=== PATIENT | female | born 1955 | race Caucasian/White ===

== ENCOUNTER 2020-08-24 12:42 | Outpatient (CLI) | payer OTHER, SELFPAY ==
--- NOTE | ~2020-08-24 | CT_ITS ---
EXAMINATION: CT lung screening DATE: 08/24/2020 13:26 INDICATION: Personal history of nicotine dependency TECHNIQUE: Computed tomography (CT) of the chest was performed without intravenous contrast. The dose -length product was 460.25 mGy-cm. Automated exposure control and iterative reconstruction technique were employed. COMPARISON: CT dated 01/20/2019 FINDINGS: Heart size normal. No significant pleural or pericardial effusion. No significant vascular abnormality. No thoracic lymphadenopathy. There are calcified mediastinal lymph nodes and pulmonary n odules, consistent with chronic granulomatous disease. No endobronchial lesions. No noncalcified pulm onary nodules/masses identified. No pneumothorax. No endobronchial lesions. No mild thoracic spondylo sis. IMPRESSION: 1. Lung-RADS category 1: Negative. Continue annual screening with noncontrast low-dose chest CT in 12 months. Reviewed, dictated and finalized at location B. IMPRESSION: 1. Lung-RADS category 1: Negative. Continue annual screening with noncontrast l ow-dose chest CT in 12 months.
== END 2020-08-24 12:43 | disposition home or self-care (01) ==
PROVIDERS: PCP Emergency Medicine; Visit Provider Emergency Medicine
DX: Z12.2 Encounter for screening for malignant neoplasm of respiratory organs (principal); Z87.891 Personal history of nicotine dependence
CPT/HCPCS: G0297

== ENCOUNTER 2020-10-08 08:43 | Outpatient (CLI) | payer OTHER, SELFPAY ==
--- NOTE | ~2020-10-08 | US_ITS ---
EXAMINATION: US abdomen complete EXAM DATE: 10/08/2020 09:31 INDICATION: Elevated liver enzymes. TECHNIQUE: Multiple grayscale and Doppler images of the complete abdomen were obtained (by a technolo gist who performed the scan) and subsequently reviewed. Comparison is made to prior examination from 03/23/2005. FINDINGS: The abdominal aorta is normal in caliber. Visualized portion IVC is patent. The pancreatic head a nd body are normal in appearance. The pancreatic tail is not visualized. There is echogenic liver parenchyma, hepatic steatosis. There are no focal liver lesions identified. There is no evidence of intrahepatic biliary duct dilation. Portal venous flow was seen in the he patopedal, normal direction and has normal Doppler waveform. Common bile duct measures 4 mm, which is normal. The gallbladder fossa is unremarkable. Right kidney: There is normal contour and echogenicity. It measures 11.4 x 5.7 x 4.7 centimeters. There are no focal renal lesions identified. There is no hydronephrosis. Left kidney: There is normal contour and echogenicity. It measures 12.6 x 6.7 x 5.8 centimeters. T here are no focal renal lesions identified. There is no hydronephrosis. The spleen measures 7.6 centimeters and is morphologically normal. IMPRESSION: Hepatic steatosis. Reviewed, dictated and finalized at location A. NSKEEPER HEAD IMPRESSION: Hepatic steatosis.
== END 2020-10-08 08:44 | disposition home or self-care (01) ==
PROVIDERS: PCP Emergency Medicine; Visit Provider Emergency Medicine
DX: K76.9 Liver disease, unspecified (principal)
CPT/HCPCS: 76700

== ENCOUNTER 2020-11-05 11:03 | Emergency (ER) | payer OTHER, SELFPAY ==
[2020-11-05 11:19] VITALS: BP 141/88; PULSE 80; RESP 20; TEMP 36.3; O2SAT 99
--- NOTE | 2020-11-05 11:40 | ED.EYEPROB ---
HPI - Eye Problem General Chief complaint: Eye Problems Stated complaint: redness right eye Source: patient and RN notes reviewed Mode of arrival: ambulatory History of Present Illness HPI Narrative: This is a 64-year-old white female presented to urgent care with right eye pain and redness. According to patient yesterday she developed pressure and redness to her right eye approximately 1 year ago this time patient also developed conjunctivitis. Patient denies any visual disturbance, trauma to the eye no noticeable foreign objects noted no crusting of eyelid, no discharge from eye, no fevers or headaches. MD chief complaint: eye pain and eye redness Related Data Home Medications Medication Instructions Recorded Confirmed furosemide 40 mg PO DAILY 09/18/19 11/19/19 gabapentin 300 mg PO DAILY 09/18/19 11/19/19 losartan 50 mg PO DAILY 09/18/19 11/19/19 metformin 500 mg PO DAILY 09/18/19 11/19/19 omeprazole 40 mg PO DAILY 09/18/19 11/19/19 simvastatin 20 mg PO DAILY 09/18/19 11/19/19 polymyxin B sulf-trimethoprim 11/19/19 Allergies Allergy/AdvReac Type Severity Reaction Status Date / Time adhesive Allergy Unknown Unknown Verified 01/19/19 17:08 lisinopril Allergy Cough Verified 09/18/19 16:37 Bumble Bee Allergy Unknown Unknown Uncoded 01/19/19 17:08 Review of Systems Review of Systems: All systems reviewed & are unremarkable except as noted in HPI and below PMFSH Past Medical History Medical History Acid reflux Diabetes Hyperlipemia, mixed Hypertension Family History Family History Sibling Family history of gastrointestinal disorder Father Family history of liver disease, Onset Age: 75 Social History Social History Alcohol intake: never Exam Narrative: Exam Narrative: GENERAL: This is a well-nourished, well-developed patient, in no apparent distress. HEAD: normocephalic, atraumatic. EYES: Erythema and edema to the right sclera EARS: External ears normal, auditory canals clear and without drainage, TMs normal without perforation. Hearing grossly intact. NOSE: External nose normal with no obvious nasal discharge, nares without redness, no rhinorrhea. THROAT: Mucous membranes moist, posterior pharynx clear. NECK: Neck supple, non-tender without lymphadenopathy, masses or thyromegaly. CARDIOVASCULAR: Regular rate and rhythm without murmurs, gallops, or rubs. RESPIRATORY: Clear to auscultation. Breath sounds equal bilaterally. No wheezes, rales, or rhonchi. GASTROINTESTINAL: Abdomen soft, non-tender, nondistended. Bowel sounds are active. No hepato-splenomegaly, or palpable masses. No guarding. SKIN: warm, intact with no suspicious lesions or rash, good texture and turgor. NEURO: awake, alert, and oriented to person, place and time. There were no obvious focal neurologic abnormalities. Steady gait EXTREMITIES: Normal range of motion. No edema. No calf tenderness. Negative Homans sign bilaterally. BACK: Nontender without deformity or crepitance. No flank tenderness. Course Course Emergency Course: Patient will discharge with erythromycin opth ointment Vital Signs Vital signs: Vital Signs Temperature 97.4 F L 11/05/20 11:19 Pulse Rate 80 11/05/20 11:19 Respiratory Rate 20 11/05/20 11:19 Blood Pressure 141/88 H 11/05/20 11:19 Pulse Oximetry 99 11/05/20 11:19 Temperature 97.4 F L 11/05/20 11:19 Pulse Rate 80 11/05/20 11:19 Respiratory Rate 20 11/05/20 11:19 Blood Pressure 141/88 H 11/05/20 11:19 Pulse Oximetry 99 11/05/20 11:19 Discharge Plan Discharge Clinical Impression: Acute conjunctivitis of right eye Qualifiers: Acute conjunctivitis type: unspecified Qualified Code(s): H10.31 - Unspecified acute conjunctivitis, right eye Patient Disposition: Home, Self-Care Condition: Stabl
== END 2020-11-05 11:44 | disposition home or self-care (01) ==
PROVIDERS: Emergency Provider Nurse Practitioner; PCP Emergency Medicine
DX: H10.31 Unspecified acute conjunctivitis, right eye (principal); K21.9 Gastro-esophageal reflux disease without esophagitis; E11.9 Type 2 diabetes mellitus without complications; E78.2 Mixed hyperlipidemia; I10 Essential (primary) hypertension
CPT/HCPCS: 99213; G0463

== ENCOUNTER 2020-12-31 09:08 | Outpatient (CLI) | payer OTHER, SELFPAY ==
--- NOTE | 2020-12-31 12:00 | NEURO_ITS ---
Impression: # Complains of pain in lower extremities, noted to have erythema/edema. # Normal nerve conduction study including F-waves. # Normal needle/EMG exam. # Clinical correlation recommended Nerve Conduction Studies Anti Sensory Summary Table Stim Site NR Peak (ms) P-T Amp (?V) Site1 Site2 Delta-P (ms) Dist (cm) [place] (m/s) Left Sup Fibular Anti Sensory (Ant Lat Mall) 14 cm 3.8 10.1 14 cm Ant Lat Mall 3.8 16.0 42 Right Sup Fibular Anti Sensory (Ant Lat Mall) 14 cm 4.3 5.3 14 cm Ant Lat Mall 4.3 16.0 37 Left Sural Anti Sensory (Lat Mall) Calf 3.7 9.5 Calf Lat Mall 3.7 16.0 43 Right Sural Anti Sensory (Lat Mall) Calf 3.7 25.3 Calf Lat Mall 3.7 16.0 43 Motor Summary Table Stim Site NR Onset (ms) O-P Amp (mV) Site1 Site2 Delta-0 (ms) Dist (cm) [place] (m/s) Left Lateral Plantar Motor (ADM) Med Mall 4.9 1.3 Right Lateral Plantar Motor (ADM) Med Mall 4.8 0.6 Left Peroneal Motor (Vastus Med) Ankle 4.8 1.7 Popit Ankle 7.1 36.0 51 Popit 11.9 1.7 Right Peroneal Motor (Vastus Med) Ankle 4.8 1.2 Popit Ankle 7.5 36.0 48 Popit 12.3 0.9 Left Tibial Motor (Abd Acevedo Brev) Ankle 4.9 3.6 Knee Ankle 8.0 41.0 51 Knee 12.9 2.3 Right Tibial Motor (Abd Acevedo Brev) Ankle 4.7 2.0 Knee Ankle 9.9 40.0 40 Knee 14.6 1.5 F Wave Studies NR F-Lat (ms) L-R F-Lat (ms) Left Peroneal (Mrkrs) (EDB) 49.01 1.05 Right Peroneal (Mrkrs) (EDB) 50.06 1.05 Left Tibial (Mrkrs) (Abd Hallucis) 52.93 0.14 Right Tibial (Mrkrs) (Abd Hallucis) 52.78 0.14 EMG Side Muscle Nerve Root Ins Act Fibs Amp Dur Recrt Comment Right AntTibialis Dp Br Fibular L4-5 Nml Nml Nml Nml Nml Right Gastroc Tibial S1-2 Nml Nml Nml Nml Nml Right Fibularis Long Sup Br Fibular L5-S1 Nml Nml Nml Nml Nml Right Flex Dig Long Tibial L5-S2 Nml Nml Nml Nml Nml Right Ext Dig Brev Dp Br Fibular L5, S1 Nml Nml Nml Nml Nml Left AntTibialis Dp Br Fibular L4-5 Nml Nml Nml Nml Nml Left Gastroc Tibial S1-2 Nml Nml Nml Nml Nml Left Fibularis Long Sup Br Fibular L5-S1 Nml Nml Nml Nml Nml Left Flex Dig Long Tibial L5-S2 Nml Nml Nml Nml Nml Left Ext Dig Brev Dp Br Fibular L5, S1 Nml Nml Nml Nml Nml MTDD
== END 2020-12-31 09:09 | disposition home or self-care (01) ==
PROVIDERS: PCP Emergency Medicine; Visit Provider Psychiatry & Neurology Neurology
DX: R20.2 Paresthesia of skin (principal)
CPT/HCPCS: 95886; 95910

== ENCOUNTER 2021-01-20 10:32 | Outpatient (CLI) | payer OTHER, SELFPAY ==
--- NOTE | ~2021-01-20 | MM_ITS ---
EXAMINATION: MM screening keren BI w andrew HISTORY: Screening TECHNIQUE: Craniocaudal and mediolateral oblique 3-D tomosynthesis images were obtained and synthetic 2-D images were generated. CAD analysis was submitted and interpreted. COMPARISON: No prior mammogram is available for comparison at this institution. BREAST PARENCHYMAL COMPOSITION: There are scattered areas of fibroglandular density. FINDINGS: There is no evidence of suspicious mass, calcification, or architectural distortion to sugg est malignancy in either breast. There has been no suspicious interval change. IMPRESSION: 1. No mammographic evidence of malignancy. 2. Recommend routine screening mammography in one year. BI-RADS Category 1: Negative Reviewed, dictated and finalized at location A.
== END 2021-01-20 10:33 | disposition home or self-care (01) ==
LOC: ANHIMG 10:35
PROVIDERS: PCP Emergency Medicine; Visit Provider Emergency Medicine
DX: Z12.31 Encounter for screening mammogram for malignant neoplasm of breast (principal)
CPT/HCPCS: 77063; 77067

== ENCOUNTER 2021-02-15 09:40 | Outpatient (CLI) | payer OTHER, SELFPAY | END 2021-02-15 09:41 | disposition home or self-care (01) | LOC: ANHCOVIDVC 09:40 | PROVIDERS: PCP Emergency Medicine | DX: Z23 Encounter for immunization (principal) | CPT/HCPCS: 0001A; 91300 ==

== ENCOUNTER 2021-03-08 09:42 | Outpatient (CLI) | payer OTHER, SELFPAY | END 2021-03-08 09:43 | disposition home or self-care (01) | LOC: ANHCOVIDVC 09:42 | PROVIDERS: PCP Emergency Medicine | DX: Z23 Encounter for immunization (principal) | CPT/HCPCS: 0002A; 91300 ==

== ENCOUNTER 2021-06-16 17:03 | Emergency (ER) | payer OTHER, SELFPAY ==
[2021-06-16 17:12] VITALS: BP 121/81; PULSE 81; RESP 16; TEMP 36.9; O2SAT 97
[2021-06-16 17:16] VITALS: BP 121/81; PULSE 81; RESP 16; TEMP 36.9; O2SAT 97
--- NOTE | 2021-06-16 17:23 | ED.URI ---
HPI - URI/Sore Throat General Chief Complaint: Upper Respiratory Infection Stated Complaint: cough Time Seen by Provider: 06/16/21 17:31 Source: patient and RN notes reviewed Mode of arrival: ambulatory Limitations: no limitations History of Present Illness HPI Narrative: 65-year-old female presents with concern for cough, wheezing for 2 days. Reports a history of bronchitis. Reports a history of seasonal allergies. She denies fever, body aches, chills, sweats. She reports she has been vaccinated for Covid, she denies any known exposure. MD elicited complaint: cough Related Data Home Medications Medication Instructions Recorded Confirmed losartan 50 mg PO DAILY 09/18/19 06/16/21 metformin 500 mg PO DAILY 09/18/19 06/16/21 omeprazole 40 mg PO DAILY 09/18/19 06/16/21 simvastatin 20 mg PO DAILY 09/18/19 06/16/21 Allergies Allergy/AdvReac Type Severity Reaction Status Date / Time adhesive Allergy Unknown Unknown Verified 06/16/21 17:12 lisinopril Allergy Cough Verified 06/16/21 17:12 Bumble Bee Allergy Unknown Unknown Uncoded 06/16/21 17:12 Review of Systems Review of Systems: CONSTITUTIONAL: Denies malaise, chills, sweats, or fever. EYES: Denies visual changes, redness, or discharge. ENT: Reports rhinorrhea. Denies congestion, sinus pain, otalgia and sore throat. CARDIOVASCULAR: Denies chest pain, palpitations, or edema. RESPIRATORY: Reports cough. Denies dyspnea. GASTROINTESTINAL: Denies abdominal pain, nausea, vomiting, diarrhea SKIN: Denies rash or itching. MUSCULOSKELETAL: Denies myalgia. NEUROLOGIC: Denies headache. All systems reviewed & are unremarkable except as noted in HPI and below [facility] Past Medical History Medical History Acid reflux Diabetes Hyperlipemia, mixed Hypertension Family History Family History Sibling Family history of gastrointestinal disorder Father Family history of liver disease, Onset Age: 75 Social History Social History Alcohol intake: never Gender identity (if verbalized by the patient): Female Comments At time of signature, agree with nursing past medical, surgical, social and family history. There is no relevant family history pertinent to the presenting complaint Exam Narrative: GENERAL: Well-appearing, well-nourished, and in no acute distress. HEAD: Normocephalic EYES: PERRLA, conjunctivae clear ENT: Nares clear, clear discharge. Mucous membranes moist. TM pearly lazar with sharp light reflex bilaterally; no tragal tenderness. Oropharynx not erythematous without lesions. Tonsils not enlarged and without exudate, no drooling, no hoarseness, no trismus, uvula midline. NECK: Supple. No lymphadenopathy CHEST: Left upper and lower lobe scattered rhonchi, breath sounds equal. No wheezing, rales, or stridor. No respiratory distress, speaks in full sentences. HEART: Regular rate and rhythm. No murmur heard. SKIN: Warm, dry, no rash. NEURO: Alert and oriented x3. PSYCH: Normal mood and affect Course Course Emergency Course: Patient is aware of diagnosis, understands and agrees to treatment plan. Anticipatory guidance given. Patient agrees to follow-up as directed and is aware of reasons to seek care at the emergency department. Portions of this record may have been created with voice recognition software Vital Signs Vital signs: Vital Signs Temperature 98.5 F 06/16/21 17:12 Pulse Rate 81 06/16/21 17:12 Respiratory Rate 16 06/16/21 17:12 Blood Pressure 121/81 06/16/21 17:12 Pulse Oximetry 97 06/16/21 17:12 Temperature 98.5 F 06/16/21 17:16 Pulse Rate 81 06/16/21 17:16 Respiratory Rate 16 06/16/21 17:16 Blood Pressure 121/81 06/16/21 17:16 Pulse Oximetry 97 06/16/21 17:16 Reviewed. MDM - URI/Sore Throat MDM Narrative Medical decision making
== END 2021-06-16 17:34 | disposition home or self-care (01) ==
PROVIDERS: Emergency Provider Nurse Practitioner; PCP Emergency Medicine
DX: J06.9 Acute upper respiratory infection, unspecified (principal); K21.9 Gastro-esophageal reflux disease without esophagitis; E11.9 Type 2 diabetes mellitus without complications; E78.2 Mixed hyperlipidemia; I10 Essential (primary) hypertension
CPT/HCPCS: 99213; G0463

== ENCOUNTER 2021-06-29 08:32 | Outpatient (CLI) | payer OTHER, SELFPAY ==
--- NOTE | ~2021-06-29 | US_ITS ---
EXAMINATION: US abdomen limited EXAM DATE: 06/29/2021 11:57 INDICATION: R10.11 - Right upper quadrant pain . TECHNIQUE: Multiple grayscale and Doppler images of the abdomen right upper quadrant were obtained (b y a technologist who performed the scan) and subsequently reviewed. Comparison is made to prior exami nation from 10/08/2020. FINDINGS: The pancreatic head and body are normal in appearance. The pancreatic tail is not visualized. There is echogenic liver parenchyma, hepatic steatosis. There are no focal liver lesions identified. Th ere is no evidence of intrahepatic biliary duct dilation. Portal venous flow was seen in the hepatop edal, normal direction and has normal Doppler waveform. No right-sided hydronephrosis. Common bile duct measures 4 mm, which is normal. The gallbladder fossa is unremarkable. IMPRESSION: 1. Hepatic steatosis. Reviewed, dictated and finalized at location A. IMPRESSION: 1. Hepatic steatosis.
--- NOTE | 2021-06-29 09:25 | EST_ITS ---
Patient Info Name: Danika Pérez Age: 65 years : 1955 Gender: Female Ht: 64 in Wt: 272 lbs BSA: 2.43 m2 Exam Date: 06/29/2021 10:16 AM Exam Location: [facility] Stress Patient Status: Outpatient Admit Date: 06/29/2021 Staff Ordering Physician: Sangita Carcamo Attending Provider: Sangita Carcamo Exercise Technologist: Nancy Warren RDCS Exercise Physician: Sukumar Otero DO Exam Type: CA stress test treadmill Study Info Indications R06.00 - Dyspnea, unspecified A treadmill exercise stress test was performed. Summary 1. 1. Negative Brandon exercise stress test for ischemic ST changes by ECG criteria. 2. 2. Poor functional capacity, achieving 4.7 METs of workload. 3. 3. Appropriate HR response to exercise. 4. 4. Appropriate HR recovery at 1 minute post exercise. 5. 5. No imaging with stress testing. 6. 6. Patient informed of the above results. Protocol: Brandon Stress ECG Details Stage: REST Duration (min): 2 min : 14 sec Speed (mph): 0.0 Grade (%): 0 HR (bpm): 77 SBP (mmHg): 131 DBP (mmHg): 73 METS: --- Stage: REST Duration (min): 13 min : 9 sec Speed (mph): 0.0 Grade (%): 0 HR (bpm): 82 SBP (mmHg): 131 DBP (mmHg): 73 METS: --- Stage: STAGE 1 Duration (min): 1 min : 0 sec Speed (mph): 1.7 Grade (%): 10 HR (bpm): 104 SBP (mmHg): 131 DBP (mmHg): 73 METS: --- Stage: STAGE 1 Duration (min): 2 min : 0 sec Speed (mph): 1.7 Grade (%): 10 HR (bpm): 124 SBP (mmHg): 131 DBP (mmHg): 73 METS: --- Stage: STAGE 1 Duration (min): 3 min : 0 sec Speed (mph): 1.7 Grade (%): 10 HR (bpm): 134 SBP (mmHg): 181 DBP (mmHg): 70 METS: --- Stage: STAGE 2 Duration (min): 0 min : 5 sec Speed (mph): 2.5 Grade (%): 12 HR (bpm): 135 SBP (mmHg): 181 DBP (mmHg): 70 METS: --- Stage: RECOVERY Duration (min): 0 min : 54 sec Speed (mph): 0.0 Grade (%): 0 HR (bpm): 127 SBP (mmHg): 181 DBP (mmHg): 70 METS: --- Stage: RECOVERY Duration (min): 1 min : 54 sec Speed (mph): 0.0 Grade (%): 0 HR (bpm): 100 SBP (mmHg): 192 DBP (mmHg): 73 METS: --- Stage: RECOVERY Duration (min): 2 min : 54 sec Speed (mph): 0.0 Grade (%): 0 HR (bpm): 95 SBP (mmHg): 169 DBP (mmHg): 66 METS: --- Stage: RECOVERY Duration (min): 3 min : 54 sec Speed (mph): 0.0 Grade (%): 0 HR (bpm): 90 SBP (mmHg): 169 DBP (mmHg): 66 METS: --- Stage: RECOVERY Duration (min): 4 min : 54 sec Speed (mph): 0.0 Grade (%): 0 HR (bpm): 88 SBP (mmHg): 162 DBP (mmHg): 68 METS: --- Stage: RECOVERY Duration (min): 5 min : 54 sec Speed (mph): 0.0 Grade (%): 0 HR (bpm): 85 SBP (mmHg): 162 DBP (mmHg): 68 METS: --- Stage: RECOVERY Duration (min): 6 min : 54 sec Spe
== END 2021-06-29 08:33 | disposition home or self-care (01) ==
PROVIDERS: PCP Internal Medicine; Visit Provider Nurse Practitioner
DX: R06.00 Dyspnea, unspecified (principal); R10.11 Right upper quadrant pain; K76.0 Fatty (change of) liver, not elsewhere classified
CPT/HCPCS: 76705; 93017

== ENCOUNTER 2021-07-14 00:20 | Day surgery (SDC) | payer OTHER, SELFPAY ==
[2021-07-06 10:59] VITALS: BMI 46.9
[2021-07-14 11:09] VITALS: BP 130/83; PULSE 87; RESP 20; TEMP 36.7; O2SAT 100
[2021-07-14] MEDS: LACTATED RINGERS 1,000 ML 150 ML IV CONT (11:17)
[2021-07-14 11:19] LABS: Glucose Point of Care 82 mg/dl (65-105)
--- NOTE | 2021-07-14 11:24 | WPDANESEPPF ---
Anes - Initial Pre Proc Eval Procedure: Operation Date: 07/14/21 12:00 Proposed Procedures p Esophagogastroduodenoscopy - Terry Zimmerman MD Date/Time: 07/14/21 11:24 Surgeon: Terry Zimmerman MD Pre Op Diagnosis: GERD K21.9 Patient Data Age: 65 Gender: F Height: 1.63 m Weight: 123 kg Last Vital Signs Temp 36.7 C 07/14/21 11:09 Pulse 87 07/14/21 11:09 Resp 20 07/14/21 11:09 BP 130/83 07/14/21 11:09 Pulse Ox 100 07/14/21 11:09 Allergies Allergy/AdvReac Type Severity Reaction Status Date / Time adhesive Allergy Unknown Unknown Verified 07/14/21 11:07 lisinopril Allergy Cough Verified 07/14/21 11:07 Bumble Bee Allergy Unknown Unknown Uncoded 07/06/21 10:55 Home Medications Medication Instructions Recorded Confirmed Type losartan 50 mg PO DAILY 09/18/19 07/06/21 History metformin 500 mg PO DAILY 09/18/19 07/06/21 History omeprazole 40 mg PO DAILY 09/18/19 07/06/21 History simvastatin 20 mg PO DAILY 09/18/19 07/06/21 History aspirin 325 mg tablet 325 mg PO DAILY 06/22/21 07/06/21 History furosemide 20 mg tablet 20 mg PO QAM 06/22/21 07/06/21 History ascorbic acid (vitamin C) 500 mg PO DAILY 07/06/21 07/06/21 History biotin 10 mg PO DAILY 07/06/21 07/06/21 History garlic 100 mg PO DAILY 07/06/21 07/06/21 History skrjj-1h-zau-epa-fish oil [[place] 3] 1 cap PO DAILY 07/06/21 07/06/21 History potassium chloride 10 meq PO DAILY 07/06/21 07/06/21 History vitamin B complex 1 tablet PO DAILY 07/06/21 07/06/21 History Laboratory Tests 07/14/21 11:14 POC Capillary Glucose 82 mg/dl mg/dl (65-105) Patient hx anesthesia problems: none Family hx anesthesia problems: none PMFSH Past Medical History Medical History (Updated 06/29/21 @ 11:26 by Sangita Carcamo, COMPUTER HELP DESK REPRESENTATIVE-C) Acid reflux Adverse effect of pkgztgjtncg-tzzidmygsx-szcano inhibitors, initial encounter Anxiety Diabetes Hyperlipemia, mixed Hypertension PE (pulmonary thromboembolism) Thrombophlebitis of superficial veins of left lower extremity Surgical History Surgical History (Updated 06/22/21 @ 10:26 by BERLIN Oneill) H/O vein stripping 1969'; 2017 History of rectal surgery 2010 Hx of cholecystectomy 2009 Family History Family History Sibling Family history of gastrointestinal disorder Father Family history of liver disease, Onset Age: 75 Social History Social History (Updated 06/22/21 @ 10:24 by BERLIN Oneill) Smoking packs per day: 1 Smoking cigarettes per day: 20.0 Years smoked: 30 Smoking pack-years: 30.00 Smoking status: Former smoker Tobacco type: cigarettes Smoking end date: 11/06/06 Alcohol intake: never Substance use: never Living arrangements: with family Gender identity (if verbalized by the patient): Female Spiritual care concerns: No Anes - Eval Final PreProcedure Day of Procedure 07/14/21 11:24 Patient weight: morbidly obese Heart: regular rate and rhythm Lungs: clear to auscultation and normal air movement Airway: Mallampati scale class II Neurological: alert and oriented Last oral intake: >/= 8 hours ASA classification: III Emergent: no Anesthetic plan: proceed Anesthesia type and monitoring: general GIVS and standard monitoring Informed Consent: The patient's anesthetic plan and its attendant risks and benefits were discussed with the patient/family/POA. Questions were solicited and answers provided to the satisfaction of the patient/family/POA.
--- NOTE | 2021-07-14 11:41 | PM.HPGS ---
History of Present Illness History of Present Illness Consent: Risks, benefits, and alternatives have been discussed and questions answered. Patient agrees to proceed with procedure. Chief complaint: GERD K21.9 Narrative: Danika Pérez is a 65 year old female Who was found have an ulcer 2 years ago. She had not had a follow-up EGD to ensure healing, primarily because of the COVID virus. She has had heartburn in the past but this is generally relieved by taking omeprazole which she started taking in 2019. She denies dysphagia or abdominal pain Review of Systems Review of Systems: All systems reviewed & are unremarkable except as noted in HPI and below PMFSH Past Medical History Medical History Acid reflux Adverse effect of zmjrjnscrbo-rrcrjrbrej-lldavr inhibitors, initial encounter Anxiety Diabetes Hyperlipemia, mixed Hypertension PE (pulmonary thromboembolism) Thrombophlebitis of superficial veins of left lower extremity Surgical History Surgical History H/O vein stripping 1969's; 2017 History of rectal surgery 2010 Hx of cholecystectomy 2009 Family History Family History Sibling Family history of gastrointestinal disorder Father Family history of liver disease, Onset Age: 75 Social History Social History Smoking packs per day: 1 Smoking cigarettes per day: 20.0 Years smoked: 30 Smoking pack-years: 30.00 Smoking status: Former smoker Tobacco type: cigarettes Smoking end date: 11/06/06 Alcohol intake: never Substance use: never Living arrangements: with family Gender identity (if verbalized by the patient): Female Spiritual care concerns: No Meds Home Medications and Allergies Home Medications Medication Instructions Recorded Confirmed Type losartan 50 mg PO DAILY 09/18/19 07/06/21 History metformin 500 mg PO DAILY 09/18/19 07/06/21 History omeprazole 40 mg PO DAILY 09/18/19 07/06/21 History simvastatin 20 mg PO DAILY 09/18/19 07/06/21 History aspirin 325 mg tablet 325 mg PO DAILY 06/22/21 07/06/21 History furosemide 20 mg tablet 20 mg PO QAM 06/22/21 07/06/21 History ascorbic acid (vitamin C) 500 mg PO DAILY 07/06/21 07/06/21 History biotin 10 mg PO DAILY 07/06/21 07/06/21 History garlic 100 mg PO DAILY 07/06/21 07/06/21 History edvox-7s-ynf-epa-fish oil [[place] 3] 1 cap PO DAILY 07/06/21 07/06/21 History potassium chloride 10 meq PO DAILY 07/06/21 07/06/21 History vitamin B complex 1 tablet PO DAILY 07/06/21 07/06/21 History Allergies Allergy/AdvReac Type Severity Reaction Status Date / Time adhesive Allergy Unknown Unknown Verified 07/14/21 11:07 lisinopril Allergy Cough Verified 07/14/21 11:07 Bumble Bee Allergy Unknown Unknown Uncoded 07/06/21 10:55 Vital Signs Vital Signs - 24 hr 07/14/21 11:09 Temperature 36.7 C Pulse Rate 87 Respiratory Rate 20 Blood Pressure 130/83 Pulse Oximetry 100 Exam Const: General: alert Orientation/consciousness: patient oriented x3 Resp: Auscultation: clear to auscultation bilaterally Cardio: Rhythm: regular rhythm GI: GI Palp: Yes Soft to palpation and No Tenderness to palpation present (GI) Neuro: General: patient oriented x3 Assessment and Plan Assessment and plan (1) Acid reflux: Code(s): K21.9 - Gastro-esophageal reflux disease without esophagitis Status: Acute Assessment and Plan: EGD with possible biopsy or dilatation or cautery.
[2021-07-14 12:02] VITALS: BP 121/67; PULSE 78; RESP 19; O2SAT 99
[2021-07-14 12:12] VITALS: BP 121/66; PULSE 75; RESP 16; O2SAT 99
[2021-07-14 12:22] VITALS: BP 126/64; PULSE 74; RESP 16; O2SAT 97
== END 2021-07-14 12:39 | disposition home or self-care (01) ==
PROVIDERS: PCP Internal Medicine; Visit Provider Internal Medicine Gastroenterology
PROC: 0DJ08ZZ Inspection of Upper Intestinal Tract, Via Natural or Artificial Opening Endoscopic (ICD-10-PCS; CPT 43235; principal; 2021-07-14 12:00)
DX: K21.9 Gastro-esophageal reflux disease without esophagitis (principal); K29.70 Gastritis, unspecified, without bleeding; I10 Essential (primary) hypertension; E11.9 Type 2 diabetes mellitus without complications; E78.5 Hyperlipidemia, unspecified; F41.9 Anxiety disorder, unspecified; Z86.711 Personal history of pulmonary embolism; Z87.891 Personal history of nicotine dependence; Z79.84 Long term (current) use of oral hypoglycemic drugs; Z79.82 Long term (current) use of aspirin; E66.01 Morbid (severe) obesity due to excess calories; Z68.42 Body mass index [BMI] 45.0-49.9, adult
CPT/HCPCS: 43239; 82948; 87081; 88305; J2704; J7120

== ENCOUNTER 2021-07-26 10:25 | Outpatient (CLI) | payer OTHER, SELFPAY ==
--- NOTE | ~2021-07-26 | DEXA_ITS ---
Bone Density Report Name: Danika Pérez Age: 65 Sex: Female Ethnicity: White Date of : 1955 Indication: postmenopausal; height loss; hysterectomy; Referring Provider: Sangita Carcamo Study: Bone densitometry was performed. Exam Date: July 26, 2021 Accession number: [id number] Bone Density: Region BMD T-score Z-score Classification AP Spine (L1, L2) 0.862 -1.1 0.6 Osteopenia Femoral Neck (Left) 0.845 0.0 1.5 Normal Total Hip (Left) 1.015 0.6 1.8 Normal Total Hip Bilateral Avg 1.017 0.6 1.8 Normal Femoral Neck (Right) 0.889 0.4 1.9 Normal Total Hip (Right) 1.017 0.6 1.8 Normal World Health Organization criteria for BMD impression classify patients as: Normal (T-score at or above -1.0), Osteopenia (T-score between -1.0 and -2.5), or Osteoporosis (T-score at or below -2.5). 10-year Fracture Risk(1): Major Osteoporotic Fracture 5.5% Hip Fracture 0.2% Reported Risk Factors: [place] (), Neck BMD=0.845, BMI=48.7 (1) FRAX(R) Version 3.08. Fracture probability calculated for an untreated patient. Fracture probability may be lower if the patient has received treatment. Previous Exams: Region Exam Age BMD T-score BMD Change BMD Change Date g/cm2 vs Baseline vs Previous Total Hip(Left) 07/26/2021 65 1.015 0.6 -0.028(-2.6%)* -0.028(-2.6%)* 01/21/2019 63 1.042 0.8 Total Hip(Right) 07/26/2021 65 1.017 0.6 -0.023(-2.2%) -0.023(-2.2%) 01/21/2019 63 1.040 0.8 *Denotes significance at 95% confidence level, LSC for Total Hip = 0.027 g/cm2 Clinical Information Provided by Patient: Has used the following medications: Vitamin D, Calcium Has the following medical conditions: Hysterectomy Patient maximum height was 64 Menopause Age: 31 No regular weight bearing exercise Drinks caffeinated beverages Onset of menses at age 13 Number of children 4 Impression: The patient has low bone mass, based on the Total Spine T-score. The patient has an estimated ten-year risk of hip fracture of 0.2% and an estimated ten-year risk of major fracture of 5.5%, based on the WHO FRAX algorithm. The BMD for the Total Hip(Left) decreased, changing by -2.6% since the last DXA exam. Discussion: BONE DENSITY IS LOW AT ONE OR MORE SKELETAL SITES. This patient's lowest T-score is low at one or more skeletal sites. It meets the World Health Organization's (WHO) criteria for ?low bone mass? (T-score between -1.0 and -2.5). The patient's 10-year risk of fracture as calculated b
== END 2021-07-26 10:26 | disposition home or self-care (01) ==
PROVIDERS: PCP Internal Medicine; Visit Provider Nurse Practitioner
DX: Z78.0 Asymptomatic menopausal state (principal); M85.88 Other specified disorders of bone density and structure, other site
CPT/HCPCS: 77080

== ENCOUNTER 2021-08-19 17:24 | Emergency (ER) | payer OTHER, SELFPAY ==
[2021-08-19 17:34] VITALS: BP 155/96; PULSE 79; RESP 16; TEMP 36.4; O2SAT 98
--- NOTE | 2021-08-19 18:32 | ED.NAVMDI ---
HPI - Nausea/Vomiting/Diarrhea General Chief complaint: Nausea/Vomiting/Diarrhea Stated complaint: vomiting Time Seen by Provider: 08/19/21 18:23 Source: patient and RN notes reviewed Mode of arrival: ambulatory Limitations: no limitations History of Present Illness HPI Narrative: Patient presents today complaining of nausea since yesterday. Patient vomited several times yesterday, but has not vomited since then. She has been able to keep down fluids. She came in concerned about COVID-19. She has been vaccinated. Denies diarrhea, fever, cough, congestion, rhinorrhea. MD elicited complaint: nausea and vomiting Related Data Home Medications Medication Instructions Recorded Confirmed losartan 50 mg PO DAILY 09/18/19 07/06/21 metformin 500 mg PO DAILY 09/18/19 07/06/21 omeprazole 40 mg PO DAILY 09/18/19 07/06/21 simvastatin 20 mg PO DAILY 09/18/19 07/06/21 aspirin 325 mg tablet 325 mg PO DAILY 06/22/21 07/06/21 furosemide 20 mg tablet 20 mg PO QAM 06/22/21 07/06/21 ascorbic acid (vitamin C) 500 mg PO DAILY 07/06/21 07/06/21 biotin 10 mg PO DAILY 07/06/21 07/06/21 garlic 100 mg PO DAILY 07/06/21 07/06/21 insle-2u-fsi-epa-fish oil 1 cap PO DAILY 07/06/21 07/06/21 potassium chloride 10 meq PO DAILY 07/06/21 07/06/21 vitamin B complex 1 tablet PO DAILY 07/06/21 07/06/21 Allergies Allergy/AdvReac Type Severity Reaction Status Date / Time adhesive Allergy Unknown Unknown Verified 07/14/21 11:07 lisinopril Allergy Cough Verified 07/14/21 11:07 Bumble Bee Allergy Unknown Unknown Uncoded 07/06/21 10:55 Review of Systems Review of Systems: CONSTITUTIONAL: Denies body aches, fever, chills, or sweats. EYES: Denies visual changes, redness, or discharge. ENT: Denies rhinorrhea, congestion, sore throat, or otalgia. CARDIOVASCULAR: Denies chest pain, palpitations, or edema. RESPIRATORY: Denies cough or dyspnea. GASTROINTESTINAL: Denies abdominal pain, or diarrhea.+ Nausea and vomiting GENITOURINARY: Denies dysuria or hematuria. SKIN: Denies rash, itching, or wounds. MUSCULOSKELETAL: Denies back pain, joint pain, or myalgia. NEUROLOGIC: Denies headache, numbness, tingling, or weakness. PSYCH: Denies depression or anxiety. [facility] Past Medical History Medical History Acid reflux Adverse effect of rbibpfewjom-hgaklxtfrl-bvdylt inhibitors, initial encounter Anxiety Diabetes Hyperlipemia, mixed Hypertension PE (pulmonary thromboembolism) Thrombophlebitis of superficial veins of left lower extremity Surgical History Surgical History H/O vein stripping 1969's; 2017 History of rectal surgery 2010 Hx of cholecystectomy 2009 Family History Family History Sibling Family history of gastrointestinal disorder Father Family history of liver disease, Onset Age: 75 Social History Social History Smoking packs per day: 1 Smoking cigarettes per day: 20.0 Years smoked: 30 Smoking pack-years: 30.00 Smoking status: Former smoker Tobacco type: cigarettes Smoking end date: 11/06/06 Alcohol intake: never Substance use: never Gender identity (if verbalized by the patient): Female Spiritual care concerns: No Comments At time of signature, I have reviewed and agree with nursing past medical, surgical, social and family history unless otherwise noted. Please see nursing chart for further information. There is no relevant family history pertinent to the presenting complaint Exam Narrative: GENERAL: Well-appearing, well-nourished, and in no acute distress. HEAD: Normocephalic, atraumatic. EYES: EOMI. No redness or drainage. Conjunctivae normal. ENT: Mucous membranes pink and moist. NECK: Normal AROM. CHEST: No respiratory distress. Clear to auscultation. HE
== END 2021-08-19 18:43 | disposition home or self-care (01) ==
PROVIDERS: Emergency Provider Nurse Practitioner
DX: R11.2 Nausea with vomiting, unspecified (principal); Z87.891 Personal history of nicotine dependence; K21.9 Gastro-esophageal reflux disease without esophagitis; E11.9 Type 2 diabetes mellitus without complications; E78.2 Mixed hyperlipidemia; I10 Essential (primary) hypertension; Z86.711 Personal history of pulmonary embolism; Z79.82 Long term (current) use of aspirin
CPT/HCPCS: 99213; G0463

== ENCOUNTER 2022-02-16 09:56 | Outpatient (CLI) | payer MEDICARE, MEDICAID, SELFPAY ==
--- NOTE | ~2022-02-16 | MM_ITS ---
EXAMINATION: MM screening keren BI w andrew HISTORY: Screening mammogram TECHNIQUE: Craniocaudal and mediolateral oblique 3-D tomosynthesis images were obtained and synthetic 2-D images were generated. CAD analysis was submitted and interpreted. COMPARISON: 01/20/2021 bilateral screening mammogram 11/28/2019 diagnostic right mammogram and limited right breast ultrasound 10/31/2019 bilateral screening mammogram BREAST PARENCHYMAL COMPOSITION: The breasts are almost entirely fatty. FINDINGS: There is no evidence of suspicious mass, calcification, or architectural distortion to sugg est malignancy in either breast. There has been no suspicious interval change. IMPRESSION: 1. No mammographic evidence of malignancy. 2. Recommend routine screening mammography in one year. BI-RADS Category 1: Negative Reviewed, dictated and finalized at location A.
== END 2022-02-16 09:57 | disposition home or self-care (01) ==
LOC: ANHIMG 09:59
PROVIDERS: PCP Internal Medicine; Visit Provider Internal Medicine
DX: Z12.31 Encounter for screening mammogram for malignant neoplasm of breast (principal)
CPT/HCPCS: 77063; 77067

== ENCOUNTER 2022-07-30 19:10 | Emergency (ER) | payer MEDICARE, MEDICAID, SELFPAY ==
[2022-07-30] VITALS (15 sets, daily range): BP systolic 128–169; BP diastolic 64–82; PULSE 77–95; RESP 14–21; TEMP 36.3; O2SAT 95–100
--- NOTE | ~2022-07-30 | XR_ITS ---
XR_CERV2-3V_CR DATE: 07/30/2022 20:02 INDICATION: Neck and left arm pain TECHNIQUE: AP, lateral, open-mouth views COMPARISON: None FINDINGS: C1 and C2 are normally aligned and the odontoid process is intact. There is preservation of the cervical curvature and lateral view. There is minimal cervical levoscoliosis. There is mild posterior and anterior spurring but relative preservation of disc space at C4-5. More prominent anterior posterior spurring and mild loss of disc space height is noted at C5-6. Minimal anterolisthesis at C7-T1. Mild uncovertebral joint spurring at C4-5 and C5-6. IMPRESSION: Minimal levoscoliosis Degenerative disc disease at the mid and lower cervical spine Minimal anterolisthesis at C7-T1 Reviewed, dictated and finalized at Location [facility]. Reviewed, dictated and finalized at location A.
--- NOTE | ~2022-07-30 | XR_ITS ---
XR chest 2V DATE: 07/30/2022 20:01 INDICATION: Chest heaviness TECHNIQUE: PA and lateral views COMPARISON: 08/24/2020 CT lung screening 01/20/2019 2 view chest FINDINGS: Normal heart size. No hilar or mediastinal enlargement. No pulmonary infiltrate or consolidation, pleural effusion or pulmonary vascular congestion or pneumo thorax. Calcified pulmonary granulomas, calcified left hilar and infrahilar nodes and calcified left mediastinal nodes, consistent with old granulomatous disease. Dextroscoliosis of the thoracic spine. Osteopenia. Status post cholecystectomy. IMPRESSION: No active cardiopulmonary disease or significant change since 01/20/2019 Reviewed, dictated and finalized at location A. IMPRESSION: No active cardiopulmonary disease or significant change since 2018
--- NOTE | 2022-07-30 19:11 | ECG_ITS ---
Measurements Intervals [place] Rate: 97 P: 35 PA: 192 QRS: -27 QRSD: 78 T: 70 QT: 336 QTc: 428 Interpretive Statements SINUS RHYTHM LOW QRS VOLTAGE IN PRECORDIAL LEADS BORDERLINE R WAVE PROGRESSION, ANTERIOR LEADS BASELINE ARTIFACT- II, III, AVR, AVL, AVF, V6 BORDERLINE ECG COMPARED TO ECG 01/20/2019 12:36:09 NO SIGNIFICANT CHANGES Electronically Signed On 07-30-2022 21:40:10 CDT by Sukumar Otero D.O.
[2022-07-30 19:40] LABS: Basophils Percent Auto 0.5 % (0.2-1.2); Eosinophils Absolute Auto 0.2 K/mm3 (0-0.3); Eosinophils Percent Auto 2.9 % (0-4.4); Hematocrit 38.7 % (37.0-47.0); Hemoglobin 12.2 g/dL (12.0-15.0); Immature Granulocyte Absolute 0.02 K/mm3 (0.00-0.031); Immature Granulocyte Percent A 0.2 % (0-0.5); Lymphocytes Absolute Auto 1.97 K/mm3 (0.9-3.2); Lymphocytes Percent Auto 24.1 % (18.3-44.2); Mean Corpuscular HGB Conc 31.5 g/dl (32-36); Mean Corpuscular Hemoglobin 28.6 pg (26-34); Mean Corpuscular Volume 90.6 fl (80-100); Mean Platelet Volume 9.6 fl (7.4-10.4); Monocytes Absolute Auto 0.7 K/mm3 (0.1-0.6); Monocytes Percent Auto 8.3 % (2.6-8.5); Neutrophils Absolute Auto 5.2 K/mm3 (1.3-6.7); Platelet Count Result 249 k/mm3 (150-375); Red Blood Count 4.27 M/mm3 (4.2-5.4); Red Cell Distribution Width 14.9 % (11.5-14.5); White Blood Count 8.2 K/mm3 (4.5-10.0)
--- NOTE | 2022-07-30 19:48 | ED.GENADULT ---
HPI - General Adult General Chief complaint: Chest Pain Stated complaint: Chest heaviness and left arm pain Time Seen by Provider: 07/30/22 19:41 History of Present Illness HPI narrative: Patient is a 66-year-old female who presents the emergency department with chief complaint of the left arm pain. The patient states that for many months she has been having pain in her left upper extremity patient reports that it got worse in the last 2 days and reports that she finally decided to come to the emergency department also the patient states that she has history of DVT and PEs before in the past and is currently just on a 325 mg aspirin dose and noticed that her left leg started swelling up more. The patient denies chest pain denies shortness of breath. Patient reports symptoms are worse with movement and improved with rest Related Data Home Medications Medication Instructions Recorded Confirmed aspirin 325 mg tablet 325 mg PO DAILY 06/22/21 03/31/22 furosemide 20 mg tablet (Lasix) 20 mg PO QAM 06/22/21 03/31/22 ascorbic acid (vitamin C) 500 mg 500 mg PO DAILY 07/06/21 03/31/22 tablet biotin 10 mg tablet 10 mg PO DAILY 07/06/21 03/31/22 garlic 100 mg tablet 100 mg PO DAILY 07/06/21 03/31/22 etemq8-nlb-jjg-other xrcsf8h-poha 1 cap PO DAILY 07/06/21 12/30/21 oil 350 mg- 400 mg capsule potassium chloride 10 mEq 10 meq PO DAILY 07/06/21 03/31/22 tablet,extended release Allergies Allergy/AdvReac Type Severity Reaction Status Date / Time adhesive Allergy Unknown Unknown Verified 07/30/22 19:23 lisinopril Allergy Cough Verified 07/30/22 19:23 Bumble Bee Allergy Unknown Unknown Uncoded 03/31/22 12:48 Review of Systems Review of Systems: A 10 system review of systems was completed on the patient and is negative except for what is stated in the HPI. Nursing and ancillary documentation was reviewed. [facility] Past Medical History Medical History Acid reflux Adverse effect of oacaiezrnyc-lhsorfzqpj-fdlerq inhibitors, initial encounter Anxiety Diabetes Hyperlipemia, mixed Hypertension PE (pulmonary thromboembolism) Thrombophlebitis of superficial veins of left lower extremity Surgical History Surgical History H/O vein stripping 1970's; 2017 History of rectal surgery 2011 Hx of cholecystectomy 2009 Family History Family History Sibling Family history of gastrointestinal disorder Father Family history of liver disease, Onset Age: 75 Social History Social History Smoking packs per day: 1 Smoking cigarettes per day: 20.0 Years smoked: 30 Smoking pack-years: 30.00 Smoking status: Former smoker Tobacco type: cigarettes Smoking end date: 11/06/06 Alcohol intake: never Substance use: never Gender identity (if verbalized by the patient): Female Spiritual care concerns: No Exam Narrative: GENERAL: Well-appearing, well-nourished, and in no acute distress. HEAD: Normocephalic, atraumatic. EYES: PERRLA and EOMI. ENT: Nares clear, no rhinorrhea or epistaxis. Mucous membranes moist. NECK: Supple there is tenderness to palpation left paraspinous muscles CHEST: Clear to auscultation. No respiratory distress. HEART: Regular rate and rhythm. No murmur heard. Normal peripheral pulses. ABDOMEN: Soft, nontender, nondistended, normal active bowel sounds. EXTREMITIES: Normal range of motion. There is edema present of the left lower extremity. There is tenderness to palpation in the left upper extremity there is no swelling present. SKIN: Warm, dry, no rash. NEURO: No focal deficits. Alert and oriented x3. PSYCH: Normal mood and affect. Course Vital Signs Vital signs: Vital Signs Temperature 36.3 C L 07/30/22 19:20 Pulse Rate 95 09/
[2022-07-30 19:49] LABS: Alanine Aminotransferase 25 U/L (6-35); Albumin Level 4.2 g/dL (3.5-5.1); Alkaline Phosphatase 172 U/L (38-126); Anion Gap 9 mmol/L (8-16); Aspartate Amino Transferase 31 U/L (14-36); Bilirubin,Total 0.3 mg/dL (0.2-1.3); Blood Urea Nitrogen 23 mg/dL (7-17); Calcium 8.8 mg/dL (8.4-10.2); Carbon Dioxide 25 mmol/L (22-30); Chloride 104 mmol/L (98-107); Estimated CRCL calculation 560 ml/min; Estimated Glomerular Filt Rate > 60; Glucose 110 mg/dL (65-110); INR 0.9; Lipase 68 U/L (23-300); Potassium 3.9 mmol/L (3.4-5.0); Prothrombin Time 12.2 Seconds (11.1-14.7); Sodium 138 mmol/L (137-145)
[2022-07-30 19:50] LABS: Partial Thromboplastin Time 32.4 SECONDS (22.3-36.8)
[2022-07-30 20:01] LABS: Troponin I < 0.012 ng/mL (0.000-0.034)
[2022-07-30 20:26] LABS: NT Pro B Type Natriuretic Pept 81 pg/mL (5-100)
[2022-07-30 20:40] LABS: D Dimer 0.75 ug/mL (<0.48)
[2022-07-30 22:53] LABS: Troponin I < 0.012 ng/mL (0.000-0.034)
[2022-07-30] MEDS: ENOXAPARIN 120 MG/0.8 ML SYRINGE SUB-Q (23:37)
== END 2022-07-30 23:41 | disposition home or self-care (01) ==
PROVIDERS: Emergency Medicine; Emergency Provider Emergency Medicine; PCP Internal Medicine
DX: M79.602 Pain in left arm (principal); M79.89 Other specified soft tissue disorders; E78.2 Mixed hyperlipidemia; E11.9 Type 2 diabetes mellitus without complications; I10 Essential (primary) hypertension; K21.9 Gastro-esophageal reflux disease without esophagitis; Z86.711 Personal history of pulmonary embolism; Z86.718 Personal history of other venous thrombosis and embolism; Z87.891 Personal history of nicotine dependence; Z79.82 Long term (current) use of aspirin; Z79.84 Long term (current) use of oral hypoglycemic drugs; R94.31 Abnormal electrocardiogram [ECG] [EKG]; M50.321 Other cervical disc degeneration at C4-C5 level
CPT/HCPCS: 36415; 71046; 72040; 80053; 83690; 83880; 84484; 85025; 85380; 85610; 85730; 93005; 96372; 99284; J1650

== ENCOUNTER 2022-07-31 07:03 | Outpatient (CLI) | payer MEDICARE, MEDICAID, SELFPAY ==
--- NOTE | ~2022-07-31 | US_ITS ---
EXAMINATION:US venous doppler LE LT INDICATION:Leg pain and swelling TECHNIQUE: Multiple grayscale, color flow and Doppler images of the left lower extremity deep venous systems were obtained and reviewed. COMPARISON:No prior studies for comparison. FINDINGS: The common femoral, superficial femoral and popliteal veins demonstrate normal respiratory variation, augmentation and compressibility. Color flow is also seen within the posterior tibial, pe roneal, greater saphenous and profunda veins. IMPRESSION: 1: No lower extremity deep venous thrombosis. Reviewed, dictated and finalized at location A.
== END 2022-07-31 07:04 | disposition home or self-care (01) ==
PROVIDERS: PCP Internal Medicine; Visit Provider Internal Medicine
DX: M79.89 Other specified soft tissue disorders (principal)
CPT/HCPCS: 93971

== ENCOUNTER 2022-11-16 01:00 | Day surgery (SDC) | payer MEDICARE, MEDICAID, SELFPAY ==
[2022-11-03 11:30] VITALS: BMI 46.4
[2022-11-16 10:18] VITALS: BP 165/72; PULSE 80; RESP 20; TEMP 36.2; O2SAT 99
[2022-11-16 10:30] LABS: Glucose Point of Care 100 mg/dl (65-105)
[2022-11-16] MEDS: LACTATED RINGERS 1,000 ML 150 ML IV CONT (10:31)
--- NOTE | 2022-11-16 10:35 | WPDANESEPPF ---
Anes - Initial Pre Proc Eval Procedure: Operation Date: 11/16/22 11:30 Proposed Procedures p Screening Colonoscopy - Terry Zimmerman MD Date/Time: 11/16/22 10:35 Surgeon: Terry Zimmerman MD Pre Op Diagnosis: Hx of colon polyps Patient Data Age: 66 Gender: F Height: 1.63 m Weight: 120.9 kg Last Vital Signs Temp 97.1 F L 11/16/22 10:18 Pulse 80 11/16/22 10:18 Resp 20 11/16/22 10:18 BP 165/72 H 11/16/22 10:18 Pulse Ox 99 11/16/22 10:18 O2 Del Method Room Air 11/16/22 10:18 Allergies Allergy/AdvReac Type Severity Reaction Status Date / Time adhesive Allergy Unknown Unknown Verified 11/16/22 10:15 venom-wasp Allergy Unknown Swelling Verified 11/16/22 10:15 lisinopril Allergy Cough Verified 11/16/22 10:15 Gpasyps-FRH-FjO Reductase AdvReac Intermediate muscle Verified 11/16/22 10:15 Inhibitor aches Bumble Bee Allergy Unknown Unknown Uncoded 11/16/22 10:15 Home Medications Medication Instructions Recorded Confirmed Type aspirin 325 mg tablet 325 mg PO DAILY 06/22/21 11/03/22 History ascorbic acid (vitamin C) 500 mg 500 mg PO DAILY 07/06/21 11/03/22 History tablet biotin 10 mg tablet 10 mg PO DAILY 07/06/21 11/03/22 History garlic 100 mg tablet 100 mg PO DAILY 07/06/21 11/03/22 History ivzul2-koe-ioi-other apshn7d-uvlv 1 cap PO DAILY 07/06/21 11/03/22 History oil 350 mg- 400 mg capsule potassium chloride 10 mEq 10 meq PO DAILY 07/06/21 11/03/22 History tablet,extended release calcium carbonate 500 mg calcium 500 mg PO DAILY #90 tabs 07/27/21 11/03/22 Rx (1,250 mg) tablet losartan 50 mg tablet 50 mg PO DAILY #90 tabs 07/14/22 11/03/22 Rx metformin 500 mg tablet 500 mg PO DAILY #90 tabs 07/14/22 11/03/22 Rx omeprazole 40 mg capsule,delayed 40 mg PO DAILY #90 caps 07/14/22 11/03/22 Rx release cyclobenzaprine 10 mg tablet 10 mg PO TID PRN muscle spasm #21 07/30/22 11/03/22 Rx tabs cholecalciferol (vitamin D3) 25 25 mcg PO DAILY #90 tabs 10/06/22 11/03/22 Rx mcg (1,000 unit) tablet gabapentin 100 mg capsule 100 mg PO BID #60 caps 10/06/22 11/03/22 Rx ezetimibe 10 mg tablet (Zetia) 10 mg PO DAILY 11/03/22 11/03/22 History Laboratory Tests 11/16/22 10:25 POC Capillary Glucose 100 mg/dl mg/dl (65-105) Patient hx anesthesia problems: none Family hx anesthesia problems: none Results Review: All pre-operative results and documents have been reviewed as part of the pre-operative evaluation. [facility] Past Medical History Medical History Acid reflux Adverse effect of dkvncfckwha-mtznfknduo-acxmzd inhibitors, initial encounter Anxiety Diabetes Hyperlipemia, mixed Hypertension PE (pulmonary thromboembolism) Thrombophlebitis of superficial veins of left lower extremity Surgical History Surgical History H/O vein stripping 1970's; 2017 History of rectal surgery 2010 Hx of cholecystectomy 2009 Family History Family History Sibling Family history of gastrointestinal disorder Father Family history of liver disease, Onset Age: 75 Social History Social History (Updated 10/06/22 @ 13:17 by Mariann Oliveros CMA) Smoking packs per day: 1 Smoking cigarettes per day: 20.0 Years smoked: 30 Smoking pack-years: 30.00 Smoking status: Former smoker Tobacco type: cigarettes Smoking end date: 11/06/06 Alcohol intake: never Substance use: never Substance use type: does not use Lack of Transportation: No Lack of Food: Never True Current Housing: I Have Housing Concerned About Future Housing: No Difficulty Paying Gas/Electric Bills: No Difficulty Paying for Meds: No Currently Unemployed: Decline to Answer Education: High School Diploma/GED Difficulty w/ Childcare or Family Care: No Gender identity (if verbalized by the patien
--- NOTE | 2022-11-16 10:37 | PM.HPGS ---
History of Present Illness History of Present Illness Consent: Risks, benefits, and alternatives have been discussed and questions answered. Patient agrees to proceed with procedure. Chief complaint: Hx of colon polyps Narrative: aDnika Pérez is a 66 year old female here for colon cancer screening. She has a history of tubular adenoma removed 5 years ago. Review of Systems Review of Systems: All systems reviewed & are unremarkable except as noted in HPI and below PMFSH Past Medical History Medical History Acid reflux Adverse effect of ytfqrxsocwq-dvkvgeydok-yrbtwl inhibitors, initial encounter Anxiety Diabetes Hyperlipemia, mixed Hypertension PE (pulmonary thromboembolism) Thrombophlebitis of superficial veins of left lower extremity Surgical History Surgical History H/O vein stripping 1970's; 2017 History of rectal surgery 2010 Hx of cholecystectomy 2009 Family History Family History Sibling Family history of gastrointestinal disorder Father Family history of liver disease, Onset Age: 75 Social History Social History Smoking packs per day: 1 Smoking cigarettes per day: 20.0 Years smoked: 30 Smoking pack-years: 30.00 Smoking status: Former smoker Tobacco type: cigarettes Smoking end date: 11/06/06 Alcohol intake: never Substance use: never Substance use type: does not use Lack of Transportation: No Lack of Food: Never True Current Housing: I Have Housing Concerned About Future Housing: No Difficulty Paying Gas/Electric Bills: No Difficulty Paying for Meds: No Currently Unemployed: Decline to Answer Education: High School Diploma/GED Difficulty w/ Childcare or Family Care: No Gender identity (if verbalized by the patient): Female Spiritual care concerns: No Meds Home Medications and Allergies Home Medications Medication Instructions Recorded Confirmed Type aspirin 325 mg tablet 325 mg PO DAILY 06/22/21 11/03/22 History ascorbic acid (vitamin C) 500 mg 500 mg PO DAILY 07/06/21 11/03/22 History tablet biotin 10 mg tablet 10 mg PO DAILY 07/06/21 11/03/22 History garlic 100 mg tablet 100 mg PO DAILY 07/06/21 11/03/22 History -ebp-cpm-other vweob8t-hrbj 1 cap PO DAILY 07/06/21 11/03/22 History oil 350 mg- 400 mg capsule potassium chloride 10 mEq 10 meq PO DAILY 07/06/21 11/03/22 History tablet,extended release calcium carbonate 500 mg calcium 500 mg PO DAILY #90 tabs 07/27/21 11/03/22 Rx (1,250 mg) tablet losartan 50 mg tablet 50 mg PO DAILY #90 tabs 07/14/22 11/03/22 Rx metformin 500 mg tablet 500 mg PO DAILY #90 tabs 07/14/22 11/03/22 Rx omeprazole 40 mg capsule,delayed 40 mg PO DAILY #90 caps 07/14/22 11/03/22 Rx release cyclobenzaprine 10 mg tablet 10 mg PO TID PRN muscle spasm #21 07/30/22 11/03/22 Rx tabs cholecalciferol (vitamin D3) 25 25 mcg PO DAILY #90 tabs 10/06/22 11/03/22 Rx mcg (1,000 unit) tablet gabapentin 100 mg capsule 100 mg PO BID #60 caps 10/06/22 11/03/22 Rx ezetimibe 10 mg tablet (Zetia) 10 mg PO DAILY 11/03/22 11/03/22 History Allergies Allergy/AdvReac Type Severity Reaction Status Date / Time adhesive Allergy Unknown Unknown Verified 11/16/22 10:15 venom-wasp Allergy Unknown Swelling Verified 11/16/22 10:15 lisinopril Allergy Cough Verified 11/16/22 10:15 Hnlnbrl-KFS-EdY Reductase AdvReac Intermediate muscle Verified 11/16/22 10:15 Inhibitor aches Bumble Bee Allergy Unknown Unknown Uncoded 11/16/22 10:15 Vital Signs Vital Signs - 24 hr 11/16/22 10:18 Temperature 36.2 C L Pulse Rate 80 Respiratory Rate 20 Blood Pressure 165/72 H Pulse Oximetry 99 Oxygen Delivery Room Air Exam Resp: Auscultation: clear to auscultation bilaterally Cardio: Rate
[2022-11-16 11:03] VITALS: BP 102/49; PULSE 71; RESP 19; O2SAT 97
[2022-11-16 11:13] VITALS: BP 115/67; PULSE 72; RESP 21; O2SAT 98
[2022-11-16 11:23] VITALS: BP 134/73; PULSE 74; RESP 18; O2SAT 100
== END 2022-11-16 12:02 | disposition home or self-care (01) ==
PROVIDERS: PCP Internal Medicine; Visit Provider Internal Medicine Gastroenterology
PROC: 0DJD8ZZ Inspection of Lower Intestinal Tract, Via Natural or Artificial Opening Endoscopic (ICD-10-PCS; CPT 45378; principal; 2022-11-16 11:30)
DX: Z12.11 Encounter for screening for malignant neoplasm of colon (principal); Z86.010 Personal history of colon polyps; I10 Essential (primary) hypertension; E11.9 Type 2 diabetes mellitus without complications; E78.2 Mixed hyperlipidemia; K21.9 Gastro-esophageal reflux disease without esophagitis; F41.9 Anxiety disorder, unspecified; Z86.711 Personal history of pulmonary embolism; Z86.718 Personal history of other venous thrombosis and embolism; Z87.891 Personal history of nicotine dependence; Z79.84 Long term (current) use of oral hypoglycemic drugs; Z79.82 Long term (current) use of aspirin
CPT/HCPCS: G0105; 82948; J2704; J7120

== ENCOUNTER 2023-01-01 17:20 | Emergency (ER) | payer MEDICARE, MEDICAID, SELFPAY ==
[2023-01-01 17:35] VITALS: BP 143/67; PULSE 81; RESP 16; TEMP 36.9; O2SAT 98
--- NOTE | 2023-01-01 17:45 | ED.FEMALEGU ---
HPI - Female Genitourinary General Chief complaint: Urogenital-Female Stated complaint: uti/sore throat Source: patient and RN notes reviewed Mode of arrival: ambulatory Limitations: no limitations History of Present Illness HPI Narrative: 67-year-old female presented for complaint of frequent urination then a throbbing sensation after urinating. Onset yesterday. Patient took azo and cranberry pill yesterday. Patient reports incidental finding of kidney stone on imaging a few months ago. Also reports c/o sore throat yesterday, granddtr positive for strep today and she was exposed to her yesterday. Denies cough, shortness of breath, wheezing, nausea, vomiting, diarrhea, flank pain, abdominal pain, dysuria, fevers or chills. Related Data Home Medications Medication Instructions Recorded Confirmed aspirin 325 mg tablet 325 mg PO DAILY 06/22/21 01/01/23 ascorbic acid (vitamin C) 500 mg 500 mg PO DAILY 07/06/21 01/01/23 tablet biotin 10 mg tablet 10 mg PO DAILY 07/06/21 01/01/23 garlic 100 mg tablet 100 mg PO DAILY 07/06/21 01/01/23 urnqr7-ksh-qvi-other vzgon7d-wior 1 cap PO DAILY 07/06/21 01/01/23 oil 350 mg- 400 mg capsule potassium chloride 10 mEq 10 meq PO DAILY 07/06/21 01/01/23 tablet,extended release ezetimibe 10 mg tablet (Zetia) 10 mg PO DAILY 11/03/22 01/01/23 Allergies Allergy/AdvReac Type Severity Reaction Status Date / Time adhesive Allergy Unknown Unknown Verified 01/01/23 17:30 venom-wasp Allergy Unknown Swelling Verified 01/01/23 17:30 lisinopril Allergy Cough Verified 01/01/23 17:30 Euawqxm-XNV-OkL Reductase AdvReac Intermediate muscle Verified 01/01/23 17:30 Inhibitor aches Bumble Bee Allergy Unknown Unknown Uncoded 01/01/23 17:30 Review of Systems Review of Systems: CONSTITUTIONAL: Denies body aches, fever, chills, or sweats. CARDIOVASCULAR: Denies chest pain, palpitations, or edema. RESPIRATORY: Denies cough or dyspnea. GASTROINTESTINAL: Denies abdominal pain, nausea, vomiting, or diarrhea. GENITOURINARY: Reports frequency, urgency, denies dysuria, hematuria, flank pain SKIN: Denies rash, itching, or wounds. MUSCULOSKELETAL: Denies back pain or myalgia. [facility] Past Medical History Medical History Acid reflux Adverse effect of iczqjvpyhjr-dtpzhauxgz-wtqgye inhibitors, initial encounter Anxiety Diabetes Hyperlipemia, mixed Hypertension PE (pulmonary thromboembolism) Thrombophlebitis of superficial veins of left lower extremity Surgical History Surgical History H/O vein stripping 1970's; 2017 History of rectal surgery 2010 Hx of cholecystectomy 2009 Family History Family History Sibling Family history of gastrointestinal disorder Father Family history of liver disease, Onset Age: 75 Social History Social History Smoking packs per day: 1 Smoking cigarettes per day: 20.0 Years smoked: 30 Smoking pack-years: 30.00 Smoking status: Former smoker Tobacco type: cigarettes Smoking end date: 11/06/06 Alcohol intake: never Substance use: never Substance use type: does not use Lack of Transportation: No Lack of Food: Never True Current Housing: I Have Housing Concerned About Future Housing: No Difficulty Paying Gas/Electric Bills: No Difficulty Paying for Meds: No Currently Unemployed: Decline to Answer Education: High School Diploma/GED Difficulty w/ Childcare or Family Care: No Living arrangements: with family Occupation/Education: unemployed Gender identity (if verbalized by the patient): Female Spiritual care concerns: No Comments At time of signature, I have reviewed and agree with nursing past medical, surgical, social and family history unless otherwise noted. Please see nursing nicole
== END 2023-01-01 18:03 | disposition home or self-care (01) ==
PROVIDERS: Emergency Provider Nurse Practitioner Family; PCP Internal Medicine
DX: N39.0 Urinary tract infection, site not specified (principal); Z87.891 Personal history of nicotine dependence; K21.9 Gastro-esophageal reflux disease without esophagitis; E11.9 Type 2 diabetes mellitus without complications; E78.2 Mixed hyperlipidemia; I10 Essential (primary) hypertension; Z86.711 Personal history of pulmonary embolism; Z86.718 Personal history of other venous thrombosis and embolism
CPT/HCPCS: 81003; 87077; 87081; 87086; 87186; 87880; 99213; G0463

== ENCOUNTER 2023-04-24 08:09 | Outpatient (CLI) | payer MEDICARE, MEDICAID, SELFPAY ==
[2023-04-24 10:31] LABS: Iron 142 ug/dL (37-170)
[2023-04-24 10:41] LABS: Percent Iron Saturation 49 % (20-50)
== END 2023-04-24 08:10 | disposition home or self-care (01) ==
PROVIDERS: PCP Family Medicine; Visit Provider Family Medicine
DX: E11.9 Type 2 diabetes mellitus without complications (principal); L65.9 Nonscarring hair loss, unspecified; E78.2 Mixed hyperlipidemia; I10 Essential (primary) hypertension; E55.9 Vitamin D deficiency, unspecified; F41.9 Anxiety disorder, unspecified
CPT/HCPCS: 36415; 82728; 83540; 83550

== ENCOUNTER 2023-06-26 09:01 | Outpatient (CLI) | payer OTHER, SELFPAY ==
[2023-06-26 09:36] LABS: Alanine Aminotransferase 34 U/L (6-35); Albumin Level 4.1 g/dL (3.5-5.1); Alkaline Phosphatase 113 U/L (38-126); Amylase 59 U/L (30-110); Aspartate Amino Transferase 38 U/L (14-36); Bilirubin,Total 0.5 mg/dL (0.2-1.3); Lipase 75 U/L (23-300)
== END 2023-06-26 09:02 | disposition home or self-care (01) ==
PROVIDERS: PCP Family Medicine; Visit Provider Nurse Practitioner Family
DX: R10.11 Right upper quadrant pain (principal); K76.0 Fatty (change of) liver, not elsewhere classified
CPT/HCPCS: 36415; 80076; 82150; 83690

== ENCOUNTER 2023-10-06 10:26 | Outpatient (CLI) | payer OTHER, SELFPAY ==
--- NOTE | ~2023-10-06 | MM_ITS ---
EXAMINATION: MM screening keren BI w andrew HISTORY: Screening mammogram TECHNIQUE: Craniocaudal and mediolateral oblique 3-D tomosynthesis images were obtained and synthetic 2-D images were generated. CAD analysis was submitted and interpreted. COMPARISON: February 16, 2022, January 20, 2021 bilateral screening mammogram examinations BREAST PARENCHYMAL COMPOSITION: The breasts are almost entirely fatty. FINDINGS: There is no evidence of suspicious mass, calcification, or architectural distortion to sugg est malignancy in either breast. There has been no suspicious interval change. IMPRESSION: 1. No mammographic evidence of malignancy. 2. Recommend routine screening mammography in one year. BI-RADS Category 1: Negative Reviewed, dictated and finalized at location A. 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
== END 2023-10-06 10:27 | disposition home or self-care (01) ==
PROVIDERS: PCP Family Medicine; Visit Provider Family Medicine
DX: Z12.31 Encounter for screening mammogram for malignant neoplasm of breast (principal)
CPT/HCPCS: 77063; 77067

== ENCOUNTER 2023-11-03 13:23 | Outpatient (CLI) | payer OTHER, SELFPAY ==
[2023-11-03 13:50] LABS: Basophils Percent Auto 0.6 % (0.2-1.2); Eosinophils Absolute Auto 0.2 K/mm3 (0-0.3); Eosinophils Percent Auto 2.2 % (0-4.4); Hematocrit 41.4 % (37.0-47.0); Hemoglobin 13.3 g/dL (12.0-15.0); Immature Granulocyte Absolute 0.02 K/mm3 (0.00-0.031); Immature Granulocyte Percent A 0.3 % (0-0.5); Lymphocytes Absolute Auto 1.68 K/mm3 (0.9-3.2); Lymphocytes Percent Auto 24.4 % (18.3-44.2); Mean Corpuscular HGB Conc 32.1 g/dl (32-36); Mean Corpuscular Hemoglobin 28.9 pg (26-34); Mean Corpuscular Volume 89.8 fl (80-100); Mean Platelet Volume 9.7 fl (7.4-10.4); Monocytes Absolute Auto 0.5 K/mm3 (0.1-0.6); Monocytes Percent Auto 7.3 % (2.6-8.5); Neutrophils Absolute Auto 4.5 K/mm3 (1.3-6.7); Neutrophils Percent Auto 65.2 % (45.5-73.1); Platelet Count Result 267 k/mm3 (150-375); Red Blood Count 4.61 M/mm3 (4.2-5.4); Red Cell Distribution Width 13.7 % (11.5-14.5); White Blood Count 6.9 K/mm3 (4.5-10.0)
[2023-11-03 14:13] LABS: Alanine Aminotransferase 20 U/L (6-35); Albumin Level 4.2 g/dL (3.5-5.1); Alkaline Phosphatase 152 U/L (38-126); Anion Gap 8 mmol/L (8-16); Aspartate Amino Transferase 29 U/L (14-36); Bilirubin,Total 0.5 mg/dL (0.2-1.3); Blood Urea Nitrogen 18 mg/dL (7-17); Calcium 8.9 mg/dL (8.4-10.2); Carbon Dioxide 28 mmol/L (22-30); Chloride 103 mmol/L (98-107); Cholesterol 193 mg/dL (0-200); Estimated Glomerular Filt Rate > 60; Glucose 86 mg/dL (65-110); HDL Direct 46 mg/dL; Sodium 139 mmol/L (137-145); Triglycerides 109 mg/dL (<150)
[2023-11-03 14:24] LABS: LDL Cholesterol Direct 109 mg/dL
[2023-11-03 14:46] LABS: MALB Creatinine Ratio 6.7 mg/g (0-30); Microalbumin Urine Random 15.8 mg/L (0-16.7)
[2023-11-03 14:47] LABS: Vitamin D 25 Hydroxy 37.4 ng/mL
[2023-11-03 15:37] LABS: Hemoglobin A1C 5.3 % (<5.7)
== END 2023-11-03 13:24 | disposition home or self-care (01) ==
PROVIDERS: PCP Nurse Practitioner Family; Visit Provider Nurse Practitioner Family
DX: E11.9 Type 2 diabetes mellitus without complications (principal); E78.2 Mixed hyperlipidemia; I10 Essential (primary) hypertension; Z79.899 Other long term (current) drug therapy; E55.9 Vitamin D deficiency, unspecified
CPT/HCPCS: 36415; 80053; 80061; 82043; 82306; 83036; 85025

== ENCOUNTER 2023-12-07 09:58 | Outpatient (CLI) | payer OTHER, SELFPAY ==
--- NOTE | ~2023-12-07 | US_ITS ---
US abdomen limited DATE: 12/07/2023 11:03 INDICATION: Right upper quadrant abdominal pain TECHNIQUE: Real-time imaging and Doppler analysis of the right upper quadrant COMPARISON: 10/17/2018 CT abdomen pelvis 06/25/2021 Limited abdominal ultrasound examination FINDINGS: The pancreatic tail is obscured by bowel gas. The remainder of the pancreas appears unremar kable. No hepatic space-occupying mass lesion is detected. Normal hepatopedal portal venous flow direction. The common bile duct measures up to 6.1 mm diameter which is likely within normal range considering s urgical absence of the gallbladder. IMPRESSION: Limited evaluation of pancreas Status post cholecystectomy Reviewed, dictated and finalized at Location A. Reviewed, dictated and finalized at location L. SPEC
== END 2023-12-07 09:59 | disposition home or self-care (01) ==
PROVIDERS: PCP Nurse Practitioner Family; Visit Provider Nurse Practitioner Family
DX: R10.11 Right upper quadrant pain (principal); Z90.49 Acquired absence of other specified parts of digestive tract
CPT/HCPCS: 76705

== ENCOUNTER 2024-01-07 21:44 | Emergency (ER) | payer OTHER, SELFPAY ==
--- NOTE | ~2024-01-07 | CT_ITS ---
EXAMINATION: CT abdomen pelvis w con DATE: 01/07/2024 23:50 INDICATION: Left lower quadrant abdominal tenderness. Constipation. TECHNIQUE: Computed tomography (CT) of the abdomen and pelvis was performed with 100 mL Omnipaque 350 intravenous contrast. Automated exposure control and iterative reconstruction technique were employe d. The dose-length product was 1340.69 mGy-cm. COMPARISON: CT abdomen and pelvis 10/17/2018 FINDINGS: The visualized portions of the lung bases demonstrate minimal atelectasis. Calcified left l aldo nodules and calcified left hilar lymph nodes are consistent with old granulomatous disease. No pl eural effusion. The heart size is normal. No pericardial effusion. Calcifications in the liver and sp veronica are consistent with old granulomatous disease. There are 2 supraumbilical ventral hernias contai jose fat in right abdomen. There are changes of cholecystectomy. The pancreas, adrenal glands, and ri ght kidney are normal. There are cysts in left kidney measuring up to 12 mm. There are no dilated loo ps of bowel. There is a moderate volume of stool in the colon. The appendix is normal. There is a sma ll sliding hiatal hernia. There are no pathologically enlarged lymph nodes. There is no free intraper itoneal fluid. There is severe thoracic spondylosis and moderate lumbar spondylosis. IMPRESSION: 1. Two right supraumbilical ventral hernias containing fat. 2. Small sliding hiatal hernia. Reviewed, dictated and finalized at location E. 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
[2024-01-07 21:47] VITALS: BP 155/97; PULSE 98; RESP 17; TEMP 36.2; O2SAT 100
[2024-01-07 22:08] VITALS: BP 135/93; PULSE 88; RESP 12; O2SAT 100
[2024-01-07 22:14] LABS: Basophils Absolute Auto 0.1 K/mm3 (0.0-0.1); Basophils Percent Auto 0.8 % (0.2-1.2); Eosinophils Absolute Auto 0.2 K/mm3 (0-0.3); Hematocrit 42.3 % (37.0-47.0); Hemoglobin 13.4 g/dL (12.0-15.0); Immature Granulocyte Absolute 0.02 K/mm3 (0.00-0.031); Immature Granulocyte Percent A 0.2 % (0-0.5); Lymphocytes Absolute Auto 1.88 K/mm3 (0.9-3.2); Lymphocytes Percent Auto 18.6 % (18.3-44.2); Mean Corpuscular HGB Conc 31.7 g/dl (32-36); Mean Corpuscular Hemoglobin 28.4 pg (26-34); Mean Corpuscular Volume 89.6 fl (80-100); Mean Platelet Volume 9.7 fl (7.4-10.4); Monocytes Absolute Auto 0.7 K/mm3 (0.1-0.6); Monocytes Percent Auto 6.4 % (2.6-8.5); Neutrophils Absolute Auto 7.3 K/mm3 (1.3-6.7); Platelet Count Result 274 k/mm3 (150-375); Red Blood Count 4.72 M/mm3 (4.2-5.4); Red Cell Distribution Width 13.8 % (11.5-14.5); White Blood Count 10.1 K/mm3 (4.5-10.0)
[2024-01-07 22:16] LABS: Appearance Urine Clear (Clear); Bilirubin Urine Negative (Negative); Blood Urine Negative (Negative); Color Urine Yellow (Yellow); Glucose Urine UA Negative (Negative); Ketones Urine Trace mg/dL (Negative); Leukocyte Esterase Ur Negative LEU/UL (Negative); Nitrate Urine Negative (Negative); Protein Urine Negative (Negative); Specific Grav Ur 1.028 (1.001-1.035); pH Urine 5.5 (5.0-9.0)
[2024-01-07 22:19] LABS: Add Urine Microscopic? NO
[2024-01-07 22:25] LABS: Alanine Aminotransferase 20 U/L (6-35); Albumin Level 4.4 g/dL (3.5-5.1); Alkaline Phosphatase 146 U/L (38-126); Anion Gap 7 mmol/L (8-16); Aspartate Amino Transferase 31 U/L (14-36); Bilirubin,Total 0.3 mg/dL (0.2-1.3); Blood Urea Nitrogen 20 mg/dL (7-17); Calcium 9.1 mg/dL (8.4-10.2); Carbon Dioxide 27 mmol/L (22-30); Chloride 103 mmol/L (98-107); Estimated CRCL calculation 72 ml/min; Estimated Glomerular Filt Rate > 60; Glucose 105 mg/dL (65-110); Lipase 105 U/L (23-300); Potassium 3.9 mmol/L (3.4-5.0); Sodium 137 mmol/L (137-145)
--- NOTE | 2024-01-07 22:52 | ED.GENADULT ---
HPI - General Adult General Chief complaint: Abdominal Pain Stated complaint: Constipation, abd pain Time Seen by Provider: 01/07/24 22:20 Source: patient Mode of arrival: ambulatory Limitations: no limitations History of Present Illness HPI narrative: This is a 68 year old female with PMH of diabetes, HLD, HTN who presents to the ED for chief complaint of constipation. Reports ?I think my bowels are blocked. ? Reports 4 days since last bowel movement which is abnormal for her. Reports generalized abdominal pain and nausea. Reports some pain in the rectum. Reports she has been straining very are to use the restroom and has noticed some bright red blood on the toilet paper. She has tried bphf-dma-wmyqpfa remedies such as suppositories and enema but had no success. Reports she has had rectal surgery but is unsure of what it was. Also reports she has had stool impaction before and feels similar. Denies vomiting, chest pain, shortness of breath, cough, fevers, chills. Related Data Home Medications Medication Instructions Recorded Confirmed aspirin 325 mg tablet 325 mg PO DAILY 06/22/21 12/11/23 garlic 100 mg tablet 100 mg PO DAILY 07/06/21 12/11/23 potassium chloride 10 mEq 10 meq PO DAILY 07/06/21 12/11/23 tablet,extended release Allergies Allergy/AdvReac Type Severity Reaction Status Date / Time adhesive Allergy Unknown Unknown Verified 01/07/24 21:51 venom-wasp Allergy Unknown Swelling Verified 01/07/24 21:51 lisinopril Allergy Cough Verified 01/07/24 21:51 nylon Allergy Irritable Verified 01/07/24 21:51 Umzhmkk-WCQ-TzT Reductase AdvReac Intermediate muscle Verified 01/07/24 21:51 Inhibitor aches Bumble Bee Allergy Unknown Unknown Uncoded 12/11/23 08:49 Review of Systems Review of Systems: All systems as dictated in [facility] Past Medical History Medical History Acid reflux Adverse effect of jraepjlwgth-ipisppusyn-zufgov inhibitors, initial encounter Anxiety Diabetes Hyperlipemia, mixed Hypertension PE (pulmonary thromboembolism) Thrombophlebitis of superficial veins of left lower extremity Surgical History Surgical History H/O vein stripping 1970's; 2017 History of rectal surgery 2011 Hx of cholecystectomy 2009 Family History Family History Sibling Family history of gastrointestinal disorder Father Family history of liver disease, Onset Age: 75 Social History Social History Smoking packs per day: 1 Smoking cigarettes per day: 20.0 Years smoked: 30 Smoking pack-years: 30.00 Smoking status: Former smoker Tobacco type: cigarettes Smoking end date: 11/06/06 Alcohol intake: never Substance use: never Substance use type: does not use Lack of Transportation: No Lack of Food: Never True Current Housing: I Have Housing Concerned About Future Housing: No Difficulty Paying Gas/Electric Bills: No Difficulty Paying for Meds: No Currently Unemployed: No Education: High School Diploma/GED Difficulty w/ Childcare or Family Care: No Living arrangements: with family Occupation/Education: unemployed Gender identity (if verbalized by the patient): Female Spiritual care concerns: No Exam Narrative: GENERAL: Well-appearing, well-nourished, and in no acute distress. HEAD: Normocephalic, atraumatic. EYES: PERRLA and EOMI. ENT: Nares clear, no rhinorrhea or epistaxis. Mucous membranes moist. Oropharynx without tonsillar hypertrophy exudate or other lesions. NECK: Supple. No adenopathy or masses. CHEST: No respiratory distress. Clear to auscultation. No wheezes rales or rhonchi HEART: Regular rate and rhythm. No murmur heard. Normal peripheral pulses. ABDOMEN: Mild left lower quadrant tenderness present. Soft, othe
[2024-01-07 23:56] VITALS: PULSE 88; RESP 16; O2SAT 98
[2024-01-08 01:38] VITALS: BP 136/74; PULSE 90; RESP 16; O2SAT 100
== END 2024-01-08 01:39 | disposition home or self-care (01) ==
PROVIDERS: Emergency Medicine; Emergency Provider Physician Assistant; PCP Nurse Practitioner Family
DX: K59.00 Constipation, unspecified (principal); I10 Essential (primary) hypertension; E78.5 Hyperlipidemia, unspecified; E11.9 Type 2 diabetes mellitus without complications; K21.9 Gastro-esophageal reflux disease without esophagitis; Z86.711 Personal history of pulmonary embolism; Z87.891 Personal history of nicotine dependence; Z90.49 Acquired absence of other specified parts of digestive tract; Z79.85 Long-term (current) use of injectable non-insulin antidiabetic drugs; Z79.82 Long term (current) use of aspirin; K44.9 Diaphragmatic hernia without obstruction or gangrene; K43.9 Ventral hernia without obstruction or gangrene
CPT/HCPCS: 36415; 74177; 80053; 81003; 83690; 85025; 99284; Q9967

== ENCOUNTER 2024-01-12 11:29 | Outpatient (CLI) | payer OTHER, SELFPAY | END 2024-01-12 11:30 | disposition home or self-care (01) | LOC: ANHAUDIO 11:30 | PROVIDERS: PCP Nurse Practitioner Family; Visit Provider Family Medicine | DX: H93.19 Tinnitus, unspecified ear (principal); H90.3 Sensorineural hearing loss, bilateral | CPT/HCPCS: 92557; 92567 ==

== ENCOUNTER 2025-01-13 09:38 | Outpatient (CLI) | payer MEDICARE, SELFPAY ==
--- OUTSIDE RECORDS SUMMARY | 2025-01-13 10:53 | XMS_ITS | Continuity of Care Document ---
Author Organization [facility] Address [address] [place] [address] [place] [address] Phone Care Team Providers Care Cardiothoracic Physiotherapist Name Role Phone Josh Gonzalez MD Unavailable [...] Providers Copied on Encounter OFFICE/OUTPA TIENT VISIT, [facility], [address], [place], [id number], tel:[phone] [facility] nail fungus1 (chief complaint) vaginal itching1 (chief complaint) gastric ulcer1 (chief complaint) HLP (chief complaint) HTN (chief complaint) Pre-DM (chief complaint) HyperlipidemiaMetab olic syndromeEssential (primary) hypertensionDermato phytosis of nailCandidiasis of vulva and vaginaChronic gastric ulcer w/o bleeding or perforationPolyp of colonFatty liver 1 Carlos Moreno. [facility] [facility] [place], [address] , [place]. tel:[phone] Referring Provider: [place], [id number]. tel:[phone] OFFICE/OUTPA TIENT VISIT, [facility], [address], [address], [place] tel:[phone] [facility] paresthesi a1 (chief complaint) LFT (chief complaint) D (chief complaint) edema1 (chief complaint) HLP (chief complaint) DM (chief complaint) EdemaMeralgia paresthetica, left lower limbHyperlipidemiaM etabolic syndromeLiver diseaseVitamin D deficiency, unspecified 0 Carlos Moreno. [address], [place], [address] , [place]. tel:[phone] Referring Provider: Crystal Galeano, [place], [place], [id number]. tel:[phone] OFFICE/OUTPA TIENT VISIT, EST [facility], [address], [place], [place], [address], [place] tel:[phone] [facility] edema1 (chief complaint) EdemaVenous insufficiency 0 Carlos Moreno. [address], [place], [place], [address] , [place]. tel:[phone] Referring Provider: Crystal Galeano [address], [place], [place], [address]. tel:[phone] OFFICE/OUTPA TIENT VISIT, [facility], [address], [place], [place], [address], [place] tel:[phone] [facility] gastric1 (chief complaint) LE edema1 (chief complaint) ear (chief complaint) HLP (chief complaint) EdemaMeralgia paresthetica, left lower limbHyperlipidemiaE ssential (primary) hypertensionMetabol ic syndrome 0 Carlos Moreno. [address], [place], [place], [address] , [place]. tel:[phone] Referring Provider: Crystal Galeano [address], [place], [place], [address]. tel:[phone] PREV VISIT, EST, AGE 40-64 [facility], [address], [place], [place], [address], [place] tel:[phone] [facility] Physical (chief complaint) Encntr for general adult medical exam w/o abnormal findings 0 Carlos Moreno. [address], [place], [place], [address] , [place]. tel:[phone] Referring Provider: Josh Gonzalez [address], [place], [place], [address]. tel:[phone] OFFICE/OUTPA TIENT VISIT, [facility], [address], [place], [place], [address], [place] tel:[phone] [facility] mammo (chief complaint) neuropathy 1 (chief complaint) Inconclusive mammogramMeralgia paresthetica, left lower limb Nov-3 0-202 0 Carlos Florentino [address], [place], [place], [address] , [place]. [phone] Referring Provider: Crystal Galeano [address], [place], [place], [address]. tel:[phone] OFFICE/OUTPA TIENT VISIT, [facility], [address], [place], [place], [id number], [place] [phone] [facility] mammogram1 (chief complaint) leg pain1 (chief complaint) cough1 (chief complaint) Inconclusive mammogramMeralgia paresthetica, left lower limbAcute upper respiratory infection, unspecifiedPolyp of colonNevus, non-neoplastic Nov-0 2-202 0 Carlos Florentino [address], [place], [place], [address] , [place]. [phone] Referring Provider: Crystal Galeano [address], [place], [place], [address]. tel:[phone] OFFICE/OUTPA TIENT VISIT, [facility], [address], [place], [place], [address], [place] tel:[phone] [facility] leg pain1 (chief complaint) weight loss1 (chief complaint) mole1 (chief complaint) Meralgia paresthetica, left lower limbAbnormal weight lossNevus, non-neoplastic Aug-0 3-201 9 Carlos Florentino [address], [place], [place], [address] , [place]. tel:[phone] Referring Provider: Crystal Galeano [address], [place], [place], [address]. tel:[phone] OFFICE/OUTPA TIENT VISIT, [facility], [address], [place], [place], [address], [place] tel:[phone] [facility] arm pain1 (chief complaint) inner thigh (chief complaint) sinus (chief complaint) Sciatica, left sideAcute sinusitisPain in left upper armBody mass index (BMI) 45.0-49.9, adult 9 Carlos Florentino [address], [place], [place], [address] , [place]. tel:[phone] Referring Provider: Crystal Galeano [address], [place], [place], [address]. tel:[phone] OFFICE/OUTPA TIENT VISIT, [facility], [address], [place], [place], [address], [place] tel:[phone] [facility] arm pain1 (chief complaint) left leg1 (chief complaint) GERD1 (chief complaint) HLP (chief complaint) DM (chief complaint) Pain in left upper armHyperlipidemiaMe tabolic syndromeParesthesia of skinGERD w/ esophagitis 9 Carlos Florentino [address], [place], [place], [address] , [place]. tel:[phone] Referring Provider: Crystal Galeano [address], [place], [place], [address]. tel:[phone] OFFICE/OUTPA TIENT VISIT, [facility], [address], [place], [place], [address], [place] tel:[phone] [facility] leg pain1 (chief complaint) GERD1 (chief complaint) foot swelling1 (chief complaint) rash (chief complaint) Acute gastric ulcer without hemorrhageParesthes ia of skinVenous insufficiencyRash 9 Carlos Florentino [address], [place], [place], [address] , [place]. tel:[phone] Referring Provider: Crystal Galeano [address], [place], [place], [address]. tel:[phone] OFFICE/OUTPA TIENT VISIT, [facility], [address], [place], [place], [address], [place] tel:[phone] [facility] bone density1 (chief complaint) HTN (chief complaint) GERD1 (chief complaint) back pain1 (chief complaint) Body mass index (BMI) 45.0-49.9, adultEssential (primary) hypertensionGERD w/ esophagitisLumbago with sciatica, left sideEncounter for screening for osteoporosis 9 Carlos Moreno. [address], [place], [place], [address] , [place]. [phone] Referring Provider: Crystal Galeano [address], [place], [place], [address]. tel:[phone] OFFICE/OUTPA TIENT VISIT, EST [facility], [address], [place], [place], [address], [place] tel:[phone] [facility] HLP (chief complaint) colon polyp1 (chief complaint) GERD1 (chief complaint) PreDM (chief complaint) GERD w/ esophagitisHyperlip idemiaPolyp of colonMetabolic syndromePulmonary embolism 9 Carlos Moreno. [address], [place], [place], [address] , [place]. tel:[phone] Referring Provider: Crystal Galeano [address] [facility] [address], [place], [place], [address]. tel:[phone] PREV VISIT, NEW, AGE 40-64 [facility], [address], [place], [place], [address], [place] tel:[phone] [facility] PHysical (chief complaint) Encntr for general adult medical exam w/o abnormal findings 9 Carlos Moreno. [address], [place], [place], [address] , [place]. tel:[phone] Family History Family Member Type Diagnosis Age At Onset Father Problem (finding) liver cirrhsosis (Cause Of ) 74 Mother Problem (finding) breast CA Sister Problem (finding) Stroke 30 Payers Payer name Insurance type Covered alliance party ID Authoriza tion(s) No Information Social [...] -Podiatric Medicine & Surgery Service Providers : Processing Engineer (related to Dermatophytosis of nail) ordered Referral Referred To: AMARILIS ARGUELLO [address] [place] [address],[address], [phone] Ordered: Referrals: Gastroenterology. AMARILIS ARGUELLO. Evaluate and treat ordered Referral Referred To: AMARILIS ARGUELLO [address] [place] [address],[address], [phone] Ordered: Referrals: Podiatric Medicine & Surgery Service Providers : Processing Engineer. AMARILIS ARGUELLO. Evaluate and treat ordered Referral [...] not been checking her glucose at home. DM Pt has borderlin e Dm Pt takes metformin. Her glucose and A1c is normal HLP Pt has HLP Pt ta caroles zocor. her lipid profile is ok Pt denies any myalgia edema1 Pt has LE depend ent edema. Pt takes lasix also Pt states that above meds are helping pt denies any calf pain D Pt has low D. Pt denies any fx LFT Pt has mildly el evated LFT .pt denies any abd pain or jaundice .Pt rarely drinks alcohol paresthesia1 Pt has left uppe r thigh paresthesia .Pt has jing with neurology in two weeks .Pt denies any loss of bladder control. Pt has mild low back pain edema1 Pt c/o worsening bilateral LE swelling [...] did help but not so much anymore ear Pt c/o mild tinn itus and [...] ta kes zocor Pt denies any myalgia. LE edema1 Pt c/o bilateral LE and [...] numbness sometimes. Pt doing ok with neurontin cough1 Pt c/o productiv e coughing for one week. pt c/o mild diarrhea without blood. Pt wants abx. Pt denies any recent travel or sick contact pt denies any fever chill. PT denies any sore throat or ear pain Pt denies any sob or chest pain mammogram1 Pt has abnormal right mammogram Pt denies any breast nodule or pain Pt denies any breast discoloration leg pain1 Pt c/o numbness left lateral [...] any numbness or tingling in both feet. left leg1 Pt has chronic l eft [...] throughout left arm. PT denies any injury rash The patient pres ents for rash. Pertinent negatives include bleeding, fatigue, pruritus and scaling. Additional information: Pt notices itchy rash both forearm for two weeks. Pt denies any recent travel or sick contact. Pt denies any rash rest of body. foot swelling1 Pt c/o bilateral ankle and foot swelling chronically, which is getting worse lately. Pt denies any sob. Pt denies any calf pain GERD1 Pt had EGD done which showed gastric ulcer. Pt is on 40 mg omeprazole now. Pt denies any abd pain. leg pain1 pt c/o left medi al thigh pain. Pt denies any back pain Pt denies any sciatica or any loss of bladder control. Pt denies any calf pain .pt had NCS with showed some abnormality of the quadricept motor neurons. Pt does have left leg numbness and tingling as well. Pt denies any calf pain. pt has above symptoms for years. back pain1 Pt has chronic l ow [...] Pt denies any chest jessy or sob GERD1 Pt has GERD P de nies any active symptoms with omeprazole. pt has not heard from GI yet HTN Pt has HTn. Pt t akes losartan and her BP is stable. bone density1 Pt has normal justa ne density. pt denies any fracture. Pt takes calcium and D Pt is trying weight bearing exercise PreDM Pt is prediabeti c. Pt doing [...] Mental Status Date Cognitive Assessment Orientation - [place] ed to time, place, person, situation.
--- OUTSIDE RECORDS SUMMARY | 2025-01-13 10:53 | XMS_ITS | CONTINUITY OF CARE DOCUMENT ---
Author Name aye griffiths Address Unknown Organization [facility] Address [address] [place] [address] [address] [place] [address] Phone [phone] Care Team Providers Care Personal Loan Specialist Name Role Phone JAMEL ARENAS MD Unavailable [phone] JAMEL ARENAS MD Unavailable [phone] INSURANCE PROVIDERS Payer name Policy type / Coverage type Carlos red green party ID [employer] MEDICAID (2) Medicaid [id number]
--- OUTSIDE RECORDS SUMMARY | 2025-01-13 10:53 | XMS_ITS | Data Portability ---
Author Organization [facility] [place] Address [address] [place] [address] [place] [address] Care Team Providers [employer] Officer Name Role Phone SHAHEED RUIZ Primary Care Provider Assessment No assessment recorded. Plan of Treatment Reminders Order Date Submit Date Provider Last Modified By Organization Details Last Modified Time Details Appointments None recorded. Lab None recorded. Referral None recorded. Procedures None recorded. Surgeries None recorded. Imaging US, pelvis [address], [address], [address], [place], [address], 17:10:32 US, transvagina l [address] [place] [address], [address], [place], [address], 17:10:32 Medication Orders None recorded. Patient TargetsNo targets recorded. Patient InstructionsNo instructions recorded. Reason for Referral None Reported. Results Created Date Observation Date Name Description Value Unit Range Abnormal Flag Note LastModifiedBy Organization Detail LastModifiedTime 04/11/20 22 04/11/2022 CULTU RE: URINE result report SEE RESULT S BELOW Test: Cultu re: Urine Speci men Sourc e: Urine Voide d Speci men Type: Urine Speci men Date: 5:20 PM Resul t Date: 11:51 PM Resul t Statu s: Final resul t Abnor mal: No Resul ting Lab: [facility] [address] [facility] [address] Tel: CULTU RE ----- ----- ----- --- Organ ism(s ) consi stent with uroge nital or skin jong . Repea t cultu re if sympt oms indic ate. Not Available [facility] (Lab) [address] [facility], [place], [address], 04/13/2022 00:55:43 04/11/20 22 04/11/2022 urina lysis , dipst ick Leukocytes normal Not Available [facility] nick [address], [place], [address], 04/11/2022 18:11:04 04/11/20 22 04/11/2022 urina lysis , dipst ick Nitrite normal Not Available [place] [address], [place], [address], 04/11/2022 18:11:04 04/11/20 22 04/11/2022 urina lysis , dipst ick Urobilinogen normal Not Available [facility] chloe [address], [place], [address], 04/11/2022 18:11:04 04/11/20 22 04/11/2022 urina lysis , dipst ick Protein normal Not Available [place] [address], [place], [address], 04/11/2022 18:11:04 04/11/20 22 04/11/2022 urina lysis , dipst ick pH normal Not Available [place] [address], [place], [address], 04/11/2022 18:11:04 04/11/20 22 04/11/2022 urina lysis , dipst ick Specific [place] normal [facility] [address], [place], [address], 04/11/2022 18:11:04 04/11/20 22 04/11/2022 urina lysis , dipst ick Ketone normal Not Available [place] [address], [place], [address], 04/11/2022 18:11:04 04/11/20 22 04/11/2022 urina lysis , dipst ick Bilirubin normal Not Available [facility] [address], [place], [address], 04/11/2022 18:11:04 04/11/20 22 04/11/2022 urina lysis , dipst ick Glucose normal Not Available [place] [address], [place], [address], 04/11/2022 18:11:04 04/11/20 22 04/11/2022 urina lysis , dipst ick Appearance normal Not Available [facility] [address], [place], [address], 04/11/2022 18:11:04 04/11/20 22 04/11/2022 urina lysis , dipst ick Color normal Not Available [place] [address], [place], [address], 04/11/2022 18:11:04 04/21/20 22 04/21/2022 , pelvi s No observ ation record ed. [email or web address] [place] [address], [place], [address], 04/21/2022 10:15:38 04/21/20 22 04/21/2022 US, trans judit al No observ ation record ed. [email or web address] [place] [address], [place], [address], 04/21/2022 10:15:49 04/21/20 22 04/21/2022 US, pelvi s No observ ation record ed. [email or web address] [facility] [address], [place], [address], 04/21/2022 19:42:58 Result Notes None recorded. Procedures Surgical History Date Name Laterality Status Provider Name and Address Organization Details Recorded Time 11/06/19 17 stripping and ligation of vein of lower leg completed Jillian Giron [facility] 04/23/2022 15:46:59 11/06/19 10 cholecystectomy completed Jillianstanislaw Giron [facility] 04/23/2022 15:46:42 11/06/18 89 Partial Hysterectomy completed Jillianstanislaw Giron [facility] 04/23/2022 15:47:10 01/17/19 80 section completed Jillianstanislaw Giron [facility] 04/23/2022 15:46:26 Imaging Results Imaging Date Name Status LastModified by Organization Details LastModified Time 04/21/2022 US, pelvis completed [email or web address] [place] [address], [place], [address], 04/21/2022 10:15:38 04/21/2022 US, transvaginal completed [email or web address] [facility] [address], [place], [address], 04/21/2022 10:15:49 04/21/2022 US, pelvis completed [email or web address] [facility] [address], [place], [address], 04/21/2022 19:42:58 Procedure Notes None recorded. Medical Equipment None Reported. Allergies Allergen ID Allergen Name Allergen Category Reaction Reaction Severity Criticality Documentation Date Start Date Code Code System Note Provider Name and Address Organization Details Recorded Time 71711 wasp venoms environme nt Not available Not available Not available 04/11/2022 81967 RxNorm Jillian Giron [facility] 2 10:51:21 61551 nylon 12 environme nt Not available Not available Not available 04/11/2022 66396 84 RxNorm Jillian Giron [facility] 2 10:51:35 Medications Name Sig Start Date Stop Date Status Note LastModified by Organization Details LastModified Time losartan 50 mg tablet TAKE 1 TABLET BY MOUTH ONCE DAILY active Not Available Not Available No t Available metformin 500 mg tablet TAKE 1 TABLET BY MOUTH ONCE DAILY active Not Available Not Available No t Available azithromyci n 250 mg tablet TAKE 2 TABLETS BY MOUTH FOR 1 DAY THEN TAKE 1 TABLET BY MOUTH DAILY FOR 4 DAYS 04/11 completed Not Available Not Available Not Available fluconazole 150 mg tablet TAKE 1 TABLET BY MOUTH 1 TIME 04/11 completed Not Available Not Available Not Available omeprazole 40 mg capsule,del ayed release TAKE 1 CAPSULE BY MOUTH ONCE DAILY active Not Available Not Available No t Available ondansetron 8 mg disintegrat ing tablet DISSOLVE 1 TABLET ON THE TONGUE EVERY 4 TO 6 HOURS NEEDED FOR NAUSEA OR VOMITING 04/11 completed Not Available Not Available Not Available simvastatin 20 mg tablet TAKE 1 TABLET BY MOUTH DAILY 04/11 completed Not Available Not Available Not Available buspirone 7.5 mg tablet TAKE 1 TABLET BY MOUTH TWICE DAILY active Not Available Not Available No t Available omeprazole 20 mg capsule,del ayed release TAKE 1 CAPSULE BY MOUTH EVERY DAY BEFORE A MEAL 04/11 completed Not Available Not Available Not Available pravastatin 20 mg tablet TAKE 1 TABLET BY MOUTH ONCE DAILY active Not Available Not Available No t Available methylpredn isolone 4 mg tablets in a dose pack FOLLOW PACKAGE DIRECTION S 04/11 completed Not Available Not Available Not Available cholecalcif isis (vitamin D3) 25 mcg (1,000 unit) tablet TAKE 1 TABLET BY MOUTH EVERY DAY 04/11 completed Not Available Not Available Not Available Vitals Date Recorded Body height Body mass index (BMI) Body weight Systolic blood pressure Diastolic blood pressure Provider Name and Address Organization Details Last Updated DateTime 04/11/2022 157.48 cm 48.5 kg/m2 300240.9 8 g 154 mm[Hg] 89 mm[Hg] Jillian Giron [facility] 2 10:51:08 Date Recorded Body height Body mass index (BMI) Body weight Systolic blood pressure Diastolic blood pressure Provider Name and Address Organization Details Last Updated DateTime 04/29/2022 157.48 cm 48.3 kg/m2 038328.3 9 g 155 mm[Hg] 81 mm[Hg] Betty Fernández [facility] 2 10:34:55 Social History Question Answer Notes LastModified by Organizat ion Details LastModified Time Tobacco Smoking Status Never Smoker Betty love, [facility] 04/29/2022 10:35:08 Do You Have An Advance Directive? No Information n ot available 04/29/2022 What Is Your Level Of Alcohol Consumption? None [email or web address] Information not available 04/23/2022 How Many Years Have You Consumed Alcohol? 0 Information not available 04/29/2022 Are You Blind Or Do You Have Difficulty Seeing? No [email or web address] Information n ot available 04/23/2022 What Is Your Level Of Caffeine Consumption? Moderate Information not available 04/29/2022 How Much Tobacco Do You Chew? None Information not available 04/29/2022 In The 14 Days Before Symptom Onset, Have You Had Close Contact With A Laboratory-confirm ed COVID-19 While That Case Was Ill? No [email or web address] Information n ot available 04/23/2022 In The 14 Days Before Symptom Onset, Have You Had Close Contact With A Person Who Is Under Investigation For COVID-19 While That Person Was Ill? No [email or web address] Information not available 04/23/2022 Have You Been To An Area Known To Be High Risk For COVID-19? No [email or web address] Information not available 04/23/2022 Are You Deaf Or Do You Have Serious Difficulty Hearing? No [email or web address] Information not available 04/23/2022 What Type Of Diet Are You Following? REGULAR Information n ot available 04/29/2022 What Is The Highest Grade Or Level Of School You Have Completed Or The Highest Degree You Have Received? 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 No Information not available 04/29/2022 Do You Use Protection During Sex? Always Information not available 04/29/2022 Do You Use Your Seat Belt Or Car Seat Routinely? Yes [email or web address] Information not available 04/23/2022 Do You Have Smoke And Carbon Monoxide Detectors In Your Home? Yes [email or web address] Information not available 04/23/2022 At What Age Did You Start Smoking Tobacco? 17 Information not available 04/29/2022 How Much Tobacco Do You Smoke? No Information not available 04/29/2022 Do You Feel Stressed (tense, Restless, Nervous, Or Anxious, Or Unable To Sleep At Night)? [id number] Information not available 04/29/2022 Do You Use Any Illicit Or Recreational Drugs? No [email or web address] Information not available 04/23/2022 Do You Use Sunscreen Routinely? No Information not available 04/29/2022 Has Tobacco Cessation Counseling Been Provided? No Information not available 04/29/2022 How Many Years Have You Smoked Tobacco? 26 Information not available 04/29/2022 Have You Used IV Drugs? No Information not available 04/29/2022 Do You Or Have You Ever Used Any Other Forms Of Tobacco Or Nicotine? No Information not available 04/29/2022 Sex: Unknown Functional Status Question Answer Note LastModified by Organizat ion Details LastModified Time Do you have difficulty walking or climbing stairs? No Information not available 04/29/2022 Are you able to walk? [email or web address] Information not available 04/23/2022 Are you able to care for yourself? Yes Information not available 04/29/2022 Do you have difficulty dressing or bathing? No Information not available 04/29/2022 What is your exercise level? Moderate Information not available 04/29/2022 Mental Status None recorded. Family History Relationship Description Onset Age of this Age Resolved Age Notes LastModified by Organization Details LastModified Time Mother Malignant tumor of breast [email or web address] Not available 04/23 15:45:05 Mother Hypertensive disorder [email or web address] Not available 04/23 15:45:23 Father Diabetes mellitus Not available 04/23 15:45:12 Medical History Condition Response Allergies (Food, seasonal, environmental ) N Other Y Blood Transfusion Y Drug/Latex Allergies/Reactions Y Breast Cancer N Dermatologic Disorders N Lung Disease N Defects or Inherited Disease N Breast Problem N Gestational Diabetes N Hematologic disorders N Anesthesia Complications N History of STI N Deep Vein Thrombosis Y Polycystic ovary syndrome N Anxiety Disorder N Autoimmune disease N Arthritis N Infertility N Polyps N Acid Reflux (GERD) N History of abnormal pap N Cancer N Stroke N Varicosities N Neurologic/Epilepsy N Endometriosis N High Cholesterol Y Headaches N Fibromyalgia N Kidney Disease N Heart Problems N Kidney or Bladder Problems N Thyroid Problems N GI Problems N Eating Disorder N Anemia N Art (IVF or FET) N Psychiatric Illness N Ovarian Cancer N Diabetes Y Pulmonary (TB, Asthma) N Hepatitis/Liver Disease N No Past Medical History N Eczema N Urinary Tract Infection N Abuse/Domestic Violence N Asthma N Trauma/Violence N Depression/ depression N Heart Disease N Pre-Eclampsia N Hypertension Y Osteoporosis N Thrombophilias N Gynecological History Statement/Question Response Abnormal Pap N Date of Last Mammogram Frequency of Cycle (Q days) 4 Date of LMP 11/06/1988 Date of DEXA bone scan Was last menstrual period normal Y Age of first menstrual cycle 13 Date of Last Pap Smear Duration of Flow (days) 5 Current Control Method Hysterectom y LMP Unknown Obstetrics History GPAL:G 5 P 5 0 0 5 Type Value Full Term 5 Living 5 Total 5 Past Encounters Encounter ID Performer Location Encounter Start Date Encounter Closed Date Diagnosis/Indication Diagnosis SNOMED-CT Code Diagnosis ICD10 Code Diagnosis Note [id number] Fran Ann MD [place] [address] [address] 04/11/2022 10:19:02 04/11/2022 11:11:43 Pain in pelvis 66828576 R10.2 This patient is a 66 -year-old female with pelvic pain. We have agreed to complete the evaluation with pelvic ultrasound . The patient will return after the pelvic ultrasound to discuss those findings and to develop a treatment plan. A comprehens ilana history and physical exam was performed today. We spent over 25 minutes face-to-fa ce. The patient was given precaution s. She will contact clinic if pelvic pain increases in frequency or intensity. Also notify clinic of any new symptoms associated with pelvic pain. She does not appear to have an acute pelvic infection today, but was asked to contact us Immediatel y with nausea, vomiting, fever, chills. burning sharp pelvic pain on the left side, history of hysterecto my and right oophorecto my, history of ovarian cyst on the left ovary along with pain. [id number] Iraida Leon [place] [address] [address] 04/21/2022 09:44:29 04/21/2022 10:15:59 Pain in pelvis 94883942 R10.2 This patient is a 66 -year-old female with pelvic pain. We have agreed to complete the evaluation with pelvic ultrasound . The patient will return after the pelvic ultrasound to discuss those findings and to develop a treatment plan. A comprehens ilana history and physical exam was performed today. We spent over 25 minutes face-to-fa ce. The patient was given precaution s. She will contact clinic if pelvic pain increases in frequency or intensity. Also notify clinic of any new symptoms associated with pelvic pain. She does not appear to have an acute pelvic infection today, but was asked to contact us Immediatel y with nausea, vomiting, fever, chills. burning sharp pelvic pain on the left side, history of hysterecto my and right oophorecto my, history of ovarian cyst on the left ovary along with pain. [id number] Fran Ann MD [place] [address] [address] 04/29/2022 10:19:07 04/29/2022 11:24:45 Pain in pelvis 83982287 R10.2 This patient is a 66-year-ol d female presents for follow-up on pelvic pain and ultrasound . Occasional ly she has a crampy lower abdominal /pelvic pain. She states that it feels like uterine cramping. But she thinks it is due to ovarian cyst that was seen on a CT scan in the emergency department . She went to emergency department for a different reason ultrasound revealed a cyst. We did not see a cyst on ultrasound . We do not see a cyst of the ovary. The ovary, the remaining ovary, it on the left side. We spent more than 15 minutes face-to-fa ce. We agreed to observe her pain. We reviewed ultrasound images together. She will follow up as needed. Health Concerns Section Related Observation LastModified by Organization Detai ls LastModified Time None Recorded Concern Status LastModified by Organization Details LastModified Time None Recorded Advance Directives Directive N: Payers Encounter Date Sequence Insurance Name Policy Number Policy Pop Covered Member ID Pop Member ID Guarantor Name 04/11/2022 1 [place] Danika Schmitt [place] [id number] Danika Simmering 04/11/2022 2 [place] [facility] Danika Simmering [id number] Danika Simmering 04/21/2022 1 [place] Danika D [place] [id number] Danika Simmering 04/21/2022 2 [place] [employer] Danika Simmering [id number] Danika Simmering 04/29/2022 1 [place] Danika D Simmer[place] [id number] Danika Simmering 04/29/2022 2 [place] [facility] Danika Simmering [id number] Danika Simmering Notes Date Note Type Note Provider Name and Address Organization Details Recorded Time 04/11/2022 text/html Beer-Pelvic PainReported bypatient.Location :left Onset/Timing:>6 months; intermittent episodes lasting: Duration:intermitt ent Quality:stabbing; burning Severity:severe; pain level 8/10 Context:unrelated to menstrual cycle; history of ovarian cysts Alleviating Factors:rest Aggravating Factors:movement Associated Symptoms:no abdominal pain; no back pain; no constipation; no diarrhea; no pain with urination; no feelings of urgency; no blood in the urine; no endometriosis; no urinary frequency Fran Ann MD [address], [place], [address], [place] [facility] 04/11/2022 11:11:11 04/29/2022 text/html This patient is a 66-year-old female presents for follow-up on pelvic pain and ultrasound. Occasionally she has a crampy lower abdominal /pelvic pain. She states that it feels like uterine cramping. But she thinks it is due to ovarian cyst that was seen on a CT scan in the emergency department. She went to emergency department for a different reason ultrasound revealed a cyst. We did not see a cyst on ultrasound. We do not see a cyst of the ovary. The ovary, the remaining ovary, it on the left side. We spent more than 15 minutes [id number]. We agreed to observe her pain. We reviewed ultrasound images together. She will follow up as needed. Fran Ann MD [address], [place], [address], [facility] 04/29/2022 11:01:08 OBGyn Episode Ob Episode Information Episode Created Date Number of Fetuses Patient Bloodtype Patient rh Status Prepregnancy Weight lbs Domestic Partner Domestic Partner Phone Father Name Business Systems Advisor Status 04/23/20 22 1 CLOSED Fetus Data First Name Last Name Admitted to NICU Weight (g) Sex Living Outcome Pediatric Complications Fetus ID Race Codes Race Delivery Type 3316.66 4704 M Full Term [id number] Vaginal Delivery Mohinder Calculation Initial Mohinder Date Initial Exam Date Initial Exam Provider Initial Ultrasound Date Last Menstrual Period Date Ultra Sound Weeks Gestation 0 Eighteen To Twenty Week Mohinder Update Ultra Sound Date Fundal Height At Umbil Quickening Date Ultra Sound Latest Weeks Gestation Final Mohinder Confirmed By Final Mohinder Confirmed Date Final Mohinder Date Ultra Sound Latest Days Gestation 0 0 Menstrual History Last Menstrual Date Menses Monthly On Bcp Conception Prior Menses Frequency Hcg Plus Date Menarche Onset Age Delivery Information Delivery Date Delivery Type Labor Anesthesia Weeks Gestation Incision Type Labor Labor Length Hrs Delivered By Post Complications Tubal Sterilization Discharge Date Comments 8 40 Discharge Information Feeding Method Contraceptive Method Maternal HG B and HCT Levels Ob Episode Information Episode Created Date Number of Fetuses Patient Bloodtype Patient rh Status Prepregnancy Weight lbs Domestic Partner Domestic Partner Phone Father Name Business Systems Advisor Status 04/23/20 22 1 CLOSED Fetus Data First Name Last Name Admitted to NICU Weight (g) Sex Living Outcome Pediatric Complications Fetus ID Race Codes Race Delivery Type 3572.03 7 F Full Term [id number] Vaginal Delivery Mohinder Calculation Initial Mohinder Date Initial Exam Date Initial Exam Provider Initial Ultrasound Date Last Menstrual Period Date Ultra Sound Weeks Gestation 0 Eighteen To Twenty Week Mohinder Update Ultra Sound Date Fundal Height At Umbil Quickening Date Ultra Sound Latest Weeks Gestation Final Mohinder Confirmed By Final Mohinder Confirmed Date Final Mohinder Date Ultra Sound Latest Days Gestation 0 0 Menstrual History Last Menstrual Date Menses Monthly On Bcp Conception Prior Menses Frequency Hcg Plus Date Menarche Onset Age Delivery Information Delivery Date Delivery Type Labor Anesthesia Weeks Gestation Incision Type Labor Labor Length Hrs Delivered By Post Complications Tubal Sterilization Discharge Date Comments 4 40 Discharge Information Feeding Method Contraceptive Method Maternal HG B and HCT Levels Ob Episode Information Episode Created Date Number of Fetuses Patient Bloodtype Patient rh Status Prepregnancy Weight lbs Domestic Partner Domestic Partner Phone Father Name Business Systems Advisor Status 04/23/20 22 1 CLOSED Fetus Data First Name Last Name Admitted to NICU Weight (g) Sex Living Outcome Pediatric Complications Fetus ID Race Codes Race Delivery Type 2438.05 7 F Full Term [id number] Primary Mohinder Calculation Initial Mohinder Date Initial Exam Date Initial Exam Provider Initial Ultrasound Date Last Menstrual Period Date Ultra Sound Weeks Gestation 0 Eighteen To Twenty Week Mohinder Update Ultra Sound Date Fundal Height At Umbil Quickening Date Ultra Sound Latest Weeks Gestation Final Mohinder Confirmed By Final Mohinder Confirmed Date Final Mohinder Date Ultra Sound Latest Days Gestation 0 0 Menstrual History Last Menstrual Date Menses Monthly On Bcp Conception Prior Menses Frequency Hcg Plus Date Menarche Onset Age Delivery Information Delivery Date Delivery Type Labor Anesthesia Weeks Gestation Incision Type Labor Labor Length Hrs Delivered By Post Complications Tubal Sterilization Discharge Date Comments 0 40 blood transfusi on Discharge Information Feeding Method Contraceptive Method Maternal HG B and HCT Levels Ob Episode Information Episode Created Date Number of Fetuses Patient Bloodtype Patient rh Status Prepregnancy Weight lbs Domestic Partner Domestic Partner Phone Father Name Business Systems Advisor Status 04/23/20 22 1 CLOSED Fetus Data First Name Last Name Admitted to NICU Weight (g) Sex Living Outcome Pediatric Complications Fetus ID Race Codes Race Delivery Type 2863.07 2704 F Full Term [id number] Vaginal Delivery Mohinder Calculation Initial Mohinder Date Initial Exam Date Initial Exam Provider Initial Ultrasound Date Last Menstrual Period Date Ultra Sound Weeks Gestation 0 Eighteen To Twenty Week Mohinder Update Ultra Sound Date Fundal Height At Umbil Quickening Date Ultra Sound Latest Weeks Gestation Final Mohinder Confirmed By Final Mohinder Confirmed Date Final Mohinder Date Ultra Sound Latest Days Gestation 0 0 Menstrual History Last Menstrual Date Menses Monthly On Bcp Conception Prior Menses Frequency Hcg Plus Date Menarche Onset Age Delivery Information Delivery Date Delivery Type Labor Anesthesia Weeks Gestation Incision Type Labor Labor Length Hrs Delivered By Post Complications Tubal Sterilization Discharge Date Comments 7 40 Discharge Information Feeding Method Contraceptive Method Maternal HG B and HCT Levels Ob Episode Information Episode Created Date Number of Fetuses Patient Bloodtype Patient rh Status Prepregnancy Weight lbs Domestic Partner Domestic Partner Phone Father Name Business Systems Advisor Status 04/23/20 22 1 CLOSED Fetus Data First Name Last Name Admitted to NICU Weight (g) Sex Living Outcome Pediatric Complications Fetus ID Race Codes Race Delivery Type 2863.07 2704 F Full Term [id number] Vaginal Delivery Mohinder Calculation Initial Mohinder Date Initial Exam Date Initial Exam Provider Initial Ultrasound Date Last Menstrual Period Date Ultra Sound Weeks Gestation 0 Eighteen To Twenty Week Mohinder Update Ultra Sound Date Fundal Height At Umbil Quickening Date Ultra Sound Latest Weeks Gestation Final Mohinder Confirmed By Final Mohinder Confirmed Date Final Mohinder Date Ultra Sound Latest Days Gestation 0 0 Menstrual History Last Menstrual Date Menses Monthly On Bcp Conception Prior Menses Frequency Hcg Plus Date Menarche Onset Age Delivery Information Delivery Date Delivery Type Labor Anesthesia Weeks Gestation Incision Type Labor Labor Length Hrs Delivered By Post Complications Tubal Sterilization Discharge Date Comments 8 40 Discharge Information Feeding Method Contraceptive Method Maternal HG B and HCT Levels
--- OUTSIDE RECORDS SUMMARY | 2025-01-13 10:53 | XMS_ITS | Data Portability ---
Author Organization [facility] OFFICE Address [address] [place] [address] Care Team Providers Care Human Service Specialist Name Role Phone EMETERIO LUEVANO Primary Care Provider Assessment No assessment recorded. Plan of Treatment Reminders Order Date Submit Date Provider Last Modified By Organization Details Last Modified Time Details Appointments None recorded . Lab None recorded . Referral None recorded . Procedures None recorded . Surgeries None recorded . Imaging electroc ardiogra m 2018 019 KYLE Not available 9 14:58:13 electroc ardiogra m 2018 019 KYLE Not available 9 16:04:04 electroc ardiogra m 2018 019 [email or web address] Not available 9 12:34:50 Medication Orders Lasix 40 mg tablet 2018 019 [email or web address][id number], [address] , [place], [place], [phone], 1 17:38:54 lidocain e 5 % topical ointment 2018 019 [email or web address], [address] [place] [address], [address], 1 17:39:22 losartan 50 mg tablet 2018 019 [facility] #[id number], [address] , [place], [place], [phone], 9 14:40:51 Lasix 40 mg tablet 2018 019 [email or web address] [facility] #68355, [address], [place], [place], [phone], 1 17:38:54 lidocain e 5 % topical ointment 2018 019 [email or web address] [facility], [address] [place] [address], [address], 1 17:39:22 Lasix 20 mg tablet 2018 019 INTERFACE [facility] #[id number], [address], [place], [place], [id number], 9 12:34:56 losartan 50 mg tablet 2018 019 INTERFACE [facility] #[id number], [address], [place], [place], [phone], 9 12:34:57 Patient TargetsNo targets recorded. Patient Instructions Encounter Date Encounter Id Patient Instructions Last Modified By Organization Details Last Modified Time 12/21/2018 [id number] Weight loss 20 pounds Exercise advised Low cholesterol diet advised Low sodium diet advised. [email or web address] Not available 12/21/2018 12:22:12 This document was scribed by Ana Paula [email or web address] Not available 12/21/2018 12:22:07 03/19/2019 [id number] Exercise advised Low cholesterol diet advised Low sodium diet advised. [email or web address] Not available 03/19/2019 15:08:57 Scribed by Jess Cm PA-C [email or web address] Not available 03/19/2019 15:08:31 06/18/2019 [id number] Weight loss 20 pounds Exercise advised Low cholesterol diet advised Low sodium diet advised. [email or web address] Not available 06/18/2019 14:32:04 This document was scribed by COREY Reeys Not available 06/18/2019 14:32:21 03/09/2021 [id number] Weight loss, 20 pounds Exercise advised Low cholesterol diet advised Low sodium diet advised. [email or web address] Not available 03/09/2021 17:47:02 Scribed by Charity Thomas, MSN, REDEYE GUNNER, FINAL INSTALLER INSPECTOR-C [email or web address] Not available 03/09/2021 17:47:08 05/21/2021 [id number] Exercise advised Low cholesterol diet advised Low sodium diet advised [email or web address] Not available 05/21/2021 16:48:25 Scribed by Michelle Jimenez FINAL INSTALLER INSPECTOR-BC [email or web address] Not available 05/21/2021 16:48:39 Reason for Referral None Reported. Results Created Date Observation Date Name Description Value Unit Range Abnormal Flag Note LastModifiedBy Organization Detail LastModifiedTime 12/21/19 19 12/21/2018 yumiko robertson am Result EKG : Low voltag e , chest leads, Probab ly old anteri or myocar dial infarc tion. Not Available Richmond Black MD [address], [place], [address], 12/21/2018 12:12:32 12/21/19 19 12/21/2018 yumiko robertson am No observ ation record ed. [email or web address] Not Available 2018 04:06:12 01/03/20 19 12/25/2018 US, viral martino, lower extre mity No observ ation record ed. [email or web address] Not Available 01/03 17:09:59 01/22/2001/15/2019 US, echoc ardio gram No observ ation record ed. [email or web address] Not Available 2018 05:25:57 02/01/20 19 01/15/2019 US, doppl er, arter ial No observ ation record ed. [email or web address] Not Available 01/31 17:53:20 02/01/20 19 01/15/2019 US, viral martino, lower extre mity No observ ation record ed. [email or web address] Not Available 2018 05:23:45 03/25/20 yumiko robertson am No observ ation record ed. [email or web address] Richmond Black MD [address], [place], [address], 03/25/2019 16:05:15 03/12/20 21 03/09/2021 yumiko rboertson am No observ ation record ed. [email or web address] Not Available 03/12 10:40:08 Result Notes None recorded. Problems Name Problem SNOMED Code Status Onset Date Resolution Date Notes Provider Name and Address Organization Details Recorded Time Diabetes mellitus 78394580 Active 2017 [facility] [place], [place] - [facility] 8 13:02:46 Essential hypertension 55655969 Active 2017 [facility] [place], [place] - [facility] 8 13:02:54 Hypercholester olemia 17023089 Active 2017 [facility] [place] - [facility] 8 13:03:02 Anxiety 90186353 Active 2017 [facility] null, [place] - [facility] 8 13:03:07 Sleep apnea 16827950 Active 2017 [facility] [place], [place] - [facility] 8 13:03:26 Obstructive sleep apnea syndrome 87472288 Active 2018 [facility], [place] - [facility] 9 12:22:16 Dyspnea on exertion 96219633 Active 2018 [facility], [place] - [facility] 9 12:23:48 Deep venous [facility]25488545 [facility] [place] [facility] 9 12:26:17 Problem Notes None recorded. Procedures Surgical History Date Name Laterality Status Provider Name and Address Organization Details Recorded Time 11/06/19 11 operation on rectum completed [facility] [place] - [facility] 10/22/2018 13:11:35 11/06/19 10 procedure on gallbladder completed [facility] - [facility] 10/22/2018 13:11:19 11/06/18 90 hysterectomy completed [facility] - [facility] 10/22/2018 13:11:06 11/06/18 80 section completed [facility] - [facility] 10/22/2018 13:10:32 Imaging Results Imaging Date Name Status LastModified by Organization Details LastModified Time 12/21/2018 electrocardiogram completed [email or web address] Informa tion not available 12/23/2018 04:06:12 12/25/2018 US, duplex, venous, lower extremity completed [email or web address] Information not available 01/03/2019 17:09:59 01/15/2019 US, echocardiogram completed Inform ation not available 03/16/2019 05:25:57 01/15/2019 US, doppler, arterial completed [email or web address] Information not available 01/31/2019 17:53:20 01/15/2019 US, duplex, venous, lower extremity completed Information not available 03/16/2019 05:23:45 03/25/2019 electrocardiogram completed [email or web address] Richmond Rees MD [address], [place], [address], 03/25/2019 16:05:15 03/09/2021 electrocardiogram completed [email or web address] Informa tion not available 03/12/2021 10:40:08 Procedure Notes None recorded. Medical Equipment None Reported. Allergies No known drug allergies Medications Name Sig Start Date Stop Date Status Note LastModified by Organization Details LastModified Time compounded medication APPLY 3-4 GRAMS TO AFFECTED AREA(S) 3-4 TIMES DAILY (AM, PM, AND NEEDED ) 03/09 completed Not Available Not Available Not Available compounded medication APPLY 3-4 GRAMS TO AFFECTED AREA(S) 3-4 TIMES DAILY (AM, PM, AND NEEDED ) active Not Available Not Available No t Available losartan 50 mg tablet TAKE 1 TABLET BY MOUTH EVERY DAY active Not Available Not Available No t Available cyclobenza florencio 10 mg tablet 10/22 completed Not Available Not Available Not Available furosemide 40 mg tablet TK 1 T PO QD 03/09 completed Not Available Not Available Not Available metformin 500 mg tablet TAKE 1 TABLET BY MOUTH EVERY DAY WITH BREAKFAS T active Not Available Not Available No t Available prednisone 10 mg tablet 10/22 completed Not Available Not Available Not Available cetirizine 10 mg tablet TK 1 T PO D 03/09 completed Not Available Not Available Not Available azithromyc in 250 mg tablet 03/09 completed Not Available Not Available Not Available aspirin 325 mg tablet Take 1 tablet every day by oral route. active Not Available Not Available No t Available fluconazol e 150 mg tablet TK 1 T PO NOW UTD 03/09 completed Not Available Not Available Not Available hydrocorti sone valerate 0.2 % topical cream APPLY 3-4 GRAMS TO AFFECTED AREA(S) 3-4 TIMES DAILY (AM, PM, AND NEEDED ) 03/09 completed Not Available Not Available Not Available valacyclov ir 1 gram tablet TK 1 T PO Q 8 H active Not Available Not Available No t Available promethazi ne 6.25 mg/5 mL oral syrup 10/22 completed Not Available Not Available Not Available lidocaine 4 % topical cream APPLY 3-4 GRAMS TO AFFECTED AREA(S) 3-4 TIMES DAILY (AM, PM, AND NEEDED ) 03/09 completed Not Available Not Available Not Available omeprazole 40 mg capsule,de layed release TK ONE C PO D 03/09 completed Not Available Not Available Not Available tramadol 50 mg tablet 10/22 completed Not Available Not Available Not Available triamcinol one acetonide 0.1 % topical cream 10/22 completed Not Available Not Available Not Available spironolac tone 25 mg tablet TK 1 T PO QD 03/09 completed Not Available Not Available Not Available dibucaine 1 % topical ointment 03/09 completed Not Available Not Available Not Available alprazolam 0.5 mg tablet 10/22 completed Not Available Not Available Not Available pantoprazo le 40 mg tablet,del ayed release TK 1 T PO ONCE DAILY 03/09 completed Not Available Not Available Not Available simvastati n 20 mg tablet TAKE 1 TABLET BY MOUTH EVERY DAY IN THE EVENING active Not Available Not Available No t Available erythromyc in 5 mg/gram (0.5 %) eye ointment APPLY TO RIGHT EYE DAILY FOR 5 DAYS 03/09 completed Not Available Not Available Not Available triamcinol one acetonide 0.1 % topical ointment 10/22 completed Not Available Not Available Not Available lisinopril 10 mg tablet 10/22 completed Not Available Not Available Not Available prednisone 50 mg tablet 10/22 completed Not Available Not Available Not Available warfarin 2 mg tablet 03/19 completed NEEDED 9 : MA Not Available Not Available Not Available polymyxin B sulfate 10,000 unit-trime thoprim 1 mg/mL eye drops 03/09 completed Not Available Not Available Not Available warfarin 5 mg tablet 03/19 completed Pt take 1 tab 5 mg every 24 hours 9 : MA Not Available Not Available Not Available losartan 25 mg tablet 03/19 completed Not Available Not Available Not Available Mapap (acetamino phen) 325 mg tablet 03/19 completed No longer take it 9 : MA Not Available Not Available Not Available gabapentin 300 mg capsule TK 1 C PO TID. AVOID DRIVING OR OPERATIN G MACHINES 03/09 completed Not Available Not Available Not Available omeprazole 20 mg capsule,de layed release 03/09 completed Not Available Not Available Not Available furosemide 20 mg tablet Take 1 tablet every day by oral route. active Not Available Not Available No t Available ergocalcif isis (vitamin D2) 1,250 mcg (50,000 unit) capsule TAKE 1 CAPSULE BY MOUTH 1 TIME EVERY WEEK active Not Available Not Available No t Available levofloxac in 500 mg tablet 10/22 completed Not Available Not Available Not Available methylpred nisolone 4 mg tablets in a dose pack 03/09 completed Not Available Not Available Not Available fluticason e propionate 50 mcg/actuat ion nasal spray,susp ension SHAKE LQ AND U 1 SPR IEN BID 03/09 completed Not Available Not Available Not Available ipratropiu m bromide 21 mcg (0.03 %) nasal spray 03/09 completed Not Available Not Available Not Available spironolac tone 50 mg tablet TK 1 T PO QD 03/09 completed Not Available Not Available Not Available amoxicilli n 875 mg-potassi um clavulanat e 125 mg tablet TK 1 T PO BID 03/09 completed Not Available Not Available Not Available Ventolin HFA 90 mcg/actuat ion aerosol inhaler 03/19 completed No longer take it 9 : MA Not Available Not Available Not Available Tylenol 500 mg daily 05/21 completed NEEDED 9 : MA Not Available Not Available Not Available lidocaine 5 % topical ointment APPLY TO AFFECTED AREA(S) BY TOPICAL ROUTE 4 TIMES DAILY NEEDED 03/09 completed Not Available Not Available Not Available Virtussin AC 10 mg-100 mg/5 mL oral liquid 03/09 completed Not Available Not Available Not Available Vitals Date Recorded Body height Body mass index (BMI) Body weight Heart rate Oxygen saturation Oxygen saturation in Arterial blood by Pulse oximetry Systolic blood pressure Diastolic blood pressure Provider Name and Address Organization Details Last Updated DateTime 9 162.56 cm 46.7 kg/m2 491274. 12 g 73 /min 97 % 97 % 168 mm[Hg] 98 mm[Hg] CARLOTA PIÑAGONZALEZ Whitehead [facility] 9 12:06:56 Date Recorded Body height Body mass index (BMI) Body weight Heart rate Oxygen saturation Oxygen saturation in Arterial blood by Pulse oximetry Systolic blood pressure Diastolic blood pressure Provider Name and Address Organization Details Last Updated DateTime 9 162.56 cm 46.5 kg/m2 397415. 53 g 93 /min 98 % 98 % 122 mm[Hg] 74 mm[Hg] EMETERIO FITZPATRICK [facility] 9 14:52:39 Date Recorded Body height Body mass index (BMI) Body weight Heart rate Oxygen saturation Oxygen saturation in Arterial blood by Pulse oximetry Systolic blood pressure Diastolic blood pressure Provider Name and Address Organization Details Last Updated DateTime 9 162.56 cm 47 kg/m2 826331. 31 g 85 /min 98 % 98 % 130 mm[Hg] 74 mm[Hg] Venkata Chairez [facility] 9 14:25:40 Date Recorded Body weight Heart rate Oxygen saturation Oxygen saturation in Arterial blood by Pulse oximetry Body temperature Systolic blood pressure Diastolic blood pressure Provider Name and Address Organization Details Last Updated DateTime 1 427237. 53 g 82 /min 99 % 99 % 97.7 [degF] 162 mm[Hg] 90 mm[Hg] Mary Patterson [facility] 17:37:16 Date Recorded Body height Body mass index (BMI) Body weight Heart rate Respiratory rate Oxygen saturation Oxygen saturation in Arterial blood by Pulse oximetry Systolic blood pressure Diastolic blood pressure Provider Name and Address Organization Details Last Updated DateTime 1 162.56 cm 46.9 kg/m2 075340. 72 g 76 /min 18 /min 98 % 98 % 146 mm[Hg] 92 mm[Hg] Marilyn Sanderson [facility] 1 09:28:54 Social History Question Answer Notes LastModified by Organizat ion Details LastModified Time Tobacco Smoking Status Former Smoker Not Available [facility] 09/08/2020 03:30:41 Do You Have An Advance Directive? Yes [id number] Information not available 09/08/2020 What Is Your Level Of Alcohol Consumption? None [id number] Information not available 09/08/2020 What Is Your Level Of Caffeine Consumption? Moderate [id number] Information not available 09/08/2020 How Much Tobacco Do You Chew? None [id number] Information not available 09/08/2020 What Type Of Diet Are You Following? REGULAR [id number] Information not available 09/08/2020 Do You Or Have You Ever Used E-cigarettes Or Vape? Never Used Electronic Cigarettes [id number] Information not available 09/08/2020 Marital Status [email or web address] Informatio n not available 10/22/2018 What Was The Date Of Your Most Recent Tobacco Screening? 10/22/2018 [id number] Information not available 09/08/2020 How Many Children Do You Have? 5 [id number] Information not available 09/08/2020 Do You Or Have You Ever Used Smokeless Tobacco? Former Smokeless Tobacco User [id number] Information not available 09/08/2020 How Much Tobacco Do You Smoke? No [id number] Information not available 09/08/2020 How Many Years Have You Smoked Tobacco? 30 [id number] Information not available 09/08/2020 Sex: Unknown Functional Status Question Answer Note LastModified by Organization D etails LastModified Time What is your exercise level? None [id number] Information not available 09/08/2020 Mental Status None recorded. Family History Relationship Description Onset Age of this Age Resolved Age Notes LastModified by Organization Details LastModified Time Father Diabetes mellitus [email or web address] Not available 2017 13:07:49 Sister Diabetes mellitus [email or web address] Not available 2017 13:07:58 Mother Hypertensive disorder [email or web address] Not available 2017 13:08:12 Mother Hypercholest erolemia [email or web address] Not available 2017 13:08:21 Medical History Condition Response Diabetes Y Peripheral Arterial Disease Y Hyperlipidemia Y Deep Vein Thrombosis Y Hypertension Y Sleep Apnea Y Gynecological HistoryNo gynecological history recorded. Obstetrics History GPAL:G 0 P 0 0 0 0 Past Encounters Encounter ID Performer Location Encounter Start Date Encounter Closed Date Diagnosis/Indication Diagnosis SNOMED-CT Code Diagnosis ICD10 Code Diagnosis Note [id number] Richmond Black MD [facility] Office [address] [facility] [place] [address] 10/22/2018 12:31:15 10/22/2018 13:45:32 Atypical chest pain 483445194 R07.89 Edema of l ower extremity 730410238 R60.0 Benign ess ential hypertension 8553726 I10 Blood pressure is elevated today, but this is only one reading, will keep close follow up, and consider medication change if blood pressure is still elevated next visit. Pulmonary embolism 43637 003 I26.99 On Coumadin with INR fu per Dr Bowens [id number] Richmond Black MD [facility] [address] [place] [address] 12/21/2018 11:32:50 12/21/2018 12:35:59 Atypical chest pain 810108957 R07.89 Resolved. Last stress test was negative in 2018. Edema of l ower extremity 025409679 R60.0 Stable on Lasix. Continue leg elevation and compressio n stockings. Having a f/u venous doppler in January. Benign ess ential hypertension 1469155 I10 Remains not at goal. Had a cough on Lisinopril . Now on Losartan. Will increase to 50 mg QD. Pulmonary embolism 71379 003 I26.99 On Coumadin with INR follow-up per Dr Bowens Obstructiv e sleep apnea syndrome 59626130 G47.33 Cannot tolerate CPAP. Dyspnea on exertion 6084 5006 R06.09 Stable now. Last stress test was negative in 2018.Will get echo to look for any structural heart disease Deep venou s thrombosis 658669441 I82.409 On Coumadin with INR follow-up per Dr Bowens Intermitte nt claudication 08222082 I73.9 Will get arterial doppler, to evaluate severity of peripheral vascular disease [id number] Richmond Black MD [facility] [address] [place] [address] 03/19/2019 14:26:59 03/19/2019 15:20:54 Atypical chest pain 406990655 R07.89 No symptoms. 10/01/18 Alvina: No definite ischemia or infarct. Normal left ventricula r EF measuring >70% Edema of l ower extremity 785200375 R60.0 Stable on Lasix. Worse after high salt intake. recommend low sodium diet. Continue leg elevation and compressio n stockings. 01/15/19 Venous Duplex: Negative left sided venous doppler study Benign ess ential hypertension 6757435 I10 Controlled today. Continue medical management . Deep venou s thrombosis 267726960 I82.409 Dr Bowens discontinu ed Coumadin 01/2019, now on ASA 325mg daily. Pulmonary embolism [address] Bowens discontinu ed Coumadin 01/2019, now on ASA 325mg daily. Dyspnea on exertion 6084 5006 R06.09 Stable now. Last stress test was negative in 2018. 01/15/19 ECHO: LV chamber size is normal. There is normal global systolic function and contractil ity.. Obstructiv e sleep apnea syndrome 09522175 G47.33 Cannot tolerate CPAP. Intermitte nt claudication 59408139 I73.9 01/15/19 Arterial Doppler: Normal ankle-brac hial index. No significan t lower extremity peripheral arterial disease detected. Peripheral nerve disease 184422625 G64 lidocain Cream [id number] Richmond Black MD [facility] [address] [place] [address] 06/18/2019 14:12:54 06/18/2019 14:41:05 Atypical chest pain 135319084 R07.89 No symptoms. 10/01/18 Alvina: No definite ischemia or infarct. Normal left ventricula r EF measuring >70% Edema of l ower extremity 205273507 R60.0 Stable on Lasix. Worse after high salt intake. recommend low sodium diet. Continue leg elevation and compressio n stockings. 01/15/19 Venous Duplex: Negative left sided venous doppler study Benign ess ential hypertension 8722437 I10 Controlled today. Continue medical management . Deep venou s thrombosis 399422451 I82.409 Dr Bowens discontinu ed Coumadin 01/2019, now on ASA 325mg daily. Pulmonary embolism [address] Bowens discontinu ed Coumadin 01/2019, now on ASA 325mg daily. Dyspnea on exertion 6084 5006 R06.09 Stable now. Last stress test was negative in 2018. 01/15/19 ECHO: LV chamber size is normal. There is normal global systolic function and contractil ity. Obstructiv e sleep apnea syndrome 15788137 G47.33 Home sleep study She has leg swelling, fatigue, and snoring Intermitte nt claudication 27472443 I73.9 01/15/19 Arterial Doppler: Normal ankle-brac hial index. No significan t lower extremity peripheral arterial disease detected. Peripheral nerve disease 936019601 G64 lidocaine Cream [id number] Charity Thomas [facility] [address] [place] [address] 03/09/2021 17:24:25 03/09/2021 17:58:01 Atypical chest pain 820384619 R07.89 No symptoms. 10/01/18 Alvina: No definite ischemia or infarct. Normal left ventricula r EF measuring >70% Edema of l ower extremity 151520366 R60.0 Stable on Lasix. Worse after high salt intake. recommend low sodium diet. Continue leg elevation and compressio n stockings. 01/15/19 Venous Duplex: Negative left sided venous doppler study Increase lasix to 40 daily Obtain Venous Reflux Benign ess ential hypertension 3202977 I10 Blood pressure is elevated today, but this is only one reading, will keep close follow up, and consider medication change if blood pressure is still elevated next visit. Deep venou s thrombosis 046280215 I82.409 Dr Bowens discontinu ed Coumadin 01/2019, now on ASA 325mg daily. Pulmonary embolism [address] Bowens discontinu ed Coumadin 01/2019, now on ASA 325mg daily. Dyspnea on exertion 6084 5006 R06.09 Stable now. Obtain echo to evaluate for structural /functiona l disease. Last stress test was negative in 2018. 01/15/19 ECHO: LV chamber size is normal. There is normal global systolic function and contractil ity. Obstructiv e sleep apnea syndrome 62793135 G47.33 She has leg swelling, fatigue, and snoring Intermitte nt claudication 29694912 I73.9 01/15/19 Arterial Doppler: Normal ankle-brac hial index. No significan t lower extremity peripheral arterial disease detected. Peripheral nerve disease 574923214 G64 lidocaine Cream [id number] Michelle Jimenez FINAL INSTALLER INSPECTOR-BC [facility] [address] [place] [address] 05/21/2021 09:06:34 05/21/2021 16:50:14 Atypical chest pain 881834966 R07.89 ResolvedLe xiscan 10/01/2018 : No definite ischemia or infarct. Normal left ventricula r EF measuring >70%. Edema of l ower extremity 512991620 R60.0 Stable on LasixLeg elevation and low salt diet advised Benign ess ential hypertension 6420414 I10 Fair control on current regimenCon salt maker increasing losartan to 100 mg if elevation persists Deep venou s thrombosis 300616453 I82.409 on ASA 325 mg Pulmonary embolism 24312 003 I26.99 on ASA 325 mg Dyspnea on exertion 6084 5006 R06.09 Stable, improved. Echo 04/30/2021 : Study quality: Technicall y difficult. Technical limitation s - morbid obesity. LV wall thickness is normal. LV systolic function is normal. The estimated left ventricle ejection fraction is 55-60% (normal). There is mild mitral annular calcificat ion. There is trace mitral regurgitat ion. The pulmonary veins are not well visualized . There is no pericarida l effusion present. Obstructiv e sleep apnea syndrome 15661199 G47.33 Previously patient reports she tested positive for LAURA but was not set up with CPAPWill repeat home sleep study Intermitte nt claudication 18808687 I73.9 Stable, improved.A BI 01/15/2019 : Normal ankle-brac hial index. No significan t lower extremity peripheral arterial disease detected. Health Concerns Section Related Observation LastModified by Organization Detai ls LastModified Time None Recorded Concern Status LastModified by Organization Details LastModified Time None Recorded Advance Directives Directive Y: Payers Encounter Date Sequence Insurance Name Policy Number Policy Pop Covered Member ID Pop Member ID Guarantor Name 12/21/2018 1 [facility] PRIOR TO 05/06/2021 (MEDICAID REPLACEMENT - HMO) Danika Diehlportillo [id number] Danika Pérez 03/19/2019 1 [facility] PRIOR TO 05/06/2021 (MEDICAID REPLACEMENT - HMO) Danika Diehlportillo [id number] Danika Pérez 06/18/2019 1 [facility] PRIOR TO 05/06/2021 (MEDICAID REPLACEMENT - HMO) Danika Diehlportillo [id number] Danika Pérez 03/09/2021 1 [facility] PRIOR TO 05/06/2021 (MEDICAID REPLACEMENT - HMO) Danika Elisa [id number] Danika Pérez 05/21/2021 1 [facility] ON OR AFTER 05/06/21 (MEDICAID REPLACEMENT - HMO) Danika Elisa [id number] Danika Diehlshlomogwen Notes Date Note Type Note Provider Name and Address Organization Details Recorded Time 12/21/2018 text/html 12/21/18 CC: Leg pain, chest pain follow-up 63 year-old white women with a PMH of hypertension, left leg DVT and PE (10/2018), venous insufficiency s/p left leg vein stripping, LAURA, obesity presents today for follow-up. She feels fairly well overall. She is not very active. Her left leg aways gives her troubles. Had left leg vein stripping done by Dr. Yusuf at [facility] in late 2017. She was in [facility] with chest pain. Has found to have a DVT, and she had negative stress test. She was in the hospital with hematuria. Resolved now. She is on Coumadin for DVT, and PE. 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 She is currently on 5mg QD of warfarin. No known history of coronary artery disease, previous myocardial infarction, heart failure, valvular heart disease, arrhythmia or stroke reported. Denies chest pain. Denies shortness of breath at rest. Denies dyspnea on exertion. No orthopnea. No PNDs. Denies heart palpitations. Denies dizziness. Denies syncope or near syncope. No ankle or leg edema. No major bleeding events. No reported side effects from medications. Taking medications as prescribed with no missed doses. Denies snoring, daytime somnolence and AM headache. 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 10/01/18 Venous Doppler: No evidence of lower left extremity deep venous thrombosis. 09/28/18 Venous Doppler 10/01/18 Alvina: No definite ischemia or infarct. Normal left ventricular EF measuring >70% 09/27/18 CXR: No acute cardiopulmonary findings 09/27/18 CT Abdomen/Pelvis: No acute abdominal abnormality. Punctuate 1mm non obstructing right renal stone. Hepatic stenosis. Richmond Black MD [address] [place], [address], [facility] 12/21/2018 12:35:55 03/19/2019 text/html 03/19/19CC: Leg p ain, chest pain follow-up 63 year-old white women with a PMH of hypertension, left leg DVT and PE (10/2018), venous insufficiency s/p left leg vein stripping, LAURA, DM, obesity presents today for follow-up. She feels fairly well overall. She is not very active. Her left leg aways gives her troubles. Had left leg vein stripping done by Dr. Yusuf at [facility] in late 2016. She is on ASA 325mg daily; Coumadin was discontinued 01/2019. She reports left leg numbness and pain extending from upper leg down to her knee. Denies chest pain. Denies shortness of breath at rest. Denies dyspnea on exertion. No orthopnea. No PNDs. Denies heart palpitations. Denies dizziness. Denies syncope or near syncope. No ankle or leg edema. No major bleeding events. No reported side effects from medications. Taking medications as prescribed with no missed doses. Denies snoring, daytime somnolence and AM headache. No known history of coronary artery disease, previous myocardial infarction, heart failure, valvular heart disease, arrhythmia or stroke reported. PCP is Dr. Gonzalez. 03/19/19 *Had venous duplex done in 01/15/19 showed Negative left sided venous doppler study . *Had ECHO done in 01/15/19 showed normal global systolic function 01/15/19 Arterial Doppler: Normal ankle-brachial index. No significant lower extremity peripheral arterial disease detected. 10/01/18 Alvina: No definite ischemia or infarct. 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 10/01/18 Venous Doppler: No evidence of lower left extremity deep venous thrombosis. 09/28/18 Venous Doppler 10/01/18 Alvina: No definite ischemia or infarct. 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 01/15/19 Arterial Doppler: Normal ankle-brachial index. No significant lower extremity peripheral arterial disease detected. 01/15/19 Venous Duplex: Negative left sided venous doppler study 09/27/18 CT Abdomen/Pelvis: No acute abdominal abnormality. Punctuate 1mm non obstructing right renal stone. Hepatic stenosis. Richmond Black MD [address] [place], [address], [facility] 03/19/2019 15:20:52 06/18/2019 text/html 06/18/2019 CC: Leg pain 63 year-old white women with a PMH of hypertension, left leg DVT and PE (10/2018), venous insufficiency s/p left leg vein stripping, LAURA, DM, obesity presents today for follow-up. She was last seen 3 months ago, up 3 lbs since then. Feels fairly well overall. She is not very active, due to leg weakness. Her left leg aways gives her troubles. Had left leg vein stripping done by Dr. Yusuf at [facility] in late 2016. She is on ASA 325mg daily; Coumadin was discontinued 01/2019. She reports left leg numbness and pain extending from upper leg down to her knee. Denies chest pain. Denies shortness of breath at rest. Denies dyspnea on exertion. No orthopnea. No PNDs. Denies heart palpitations. Denies dizziness. Denies syncope or near syncope. No ankle or leg edema. No major bleeding events. No reported side effects from medications. Taking medications as prescribed with no missed doses. Denies snoring, daytime somnolence and AM headache. No known history of coronary artery disease, previous myocardial infarction, heart failure, valvular heart disease, arrhythmia or stroke reported. Had venous duplex done in 01/15/19 showed Negative left sided venous doppler study . Had ECHO done in 01/15/19 showed normal global systolic function 01/15/19 Arterial Doppler: Normal ankle-brachial index. No significant lower extremity peripheral arterial disease detected. 10/01/18 Alvina: No definite ischemia or infarct. 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 10/01/18 Venous Doppler: No evidence of lower left extremity deep venous thrombosis. 09/28/18 Venous Doppler 10/01/18 Alvina: No definite ischemia or infarct. 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 01/15/19 Arterial Doppler: Normal ankle-brachial index. No significant lower extremity peripheral arterial disease detected. 01/15/19 Venous Duplex: Negative left sided venous doppler study 09/27/18 CT Abdomen/Pelvis: No acute abdominal abnormality. Punctuate 1mm non obstructing right renal stone. Hepatic stenosis. Richmond Black MD [address] [place], [address], [facility] 06/18/2019 14:41:03 03/09/2021 text/html 03/09/21 CC: Leg pain 63 year-old white women with a PMH of hypertension, left leg DVT and PE (10/2018), venous insufficiency s/p left leg vein stripping, LAURA, DM, obesity presents today for follow-up. She was last seen in 2019. She denies ER visits and hospitalizations. Denies chest pain. Denies shortness of breath at rest. Denies dyspnea on exertion. No orthopnea. No PNDs. Denies heart palpitations. Denies dizziness. Denies syncope or near syncope. Yes ankle or leg edema. No major bleeding events. No reported side effects from medications. Taking medications as prescribed with no missed doses. Previously,Denies snoring, daytime somnolence and AM headache. No known history of coronary artery disease, previous myocardial infarction, heart failure, valvular heart disease, arrhythmia or stroke reported. Had venous duplex done in 01/15/19 showed Negative left sided venous doppler study . Had ECHO done in 01/15/19 showed normal global systolic function 01/15/19 Arterial Doppler: Normal ankle-brachial index. No significant lower extremity peripheral arterial disease detected. 10/01/18 Alvina: No definite ischemia or infarct. 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 10/01/18 Venous Doppler: No evidence of lower left extremity deep venous thrombosis. 09/28/18 Venous Doppler 10/01/18 Alvina: No definite ischemia or infarct. 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 01/15/19 Arterial Doppler: Normal ankle-brachial index. No significant lower extremity peripheral arterial disease detected. 01/15/19 Venous Duplex: Negative left sided venous doppler study 09/27/18 CT Abdomen/Pelvis: No acute abdominal abnormality. Punctuate 1mm non obstructing right renal stone. Hepatic stenosis. Charity Thomas [place], [place] - [facility] 03/09/2021 17:57:59 05/21/2021 text/html 05/21/2021 CC : Cardiac follow-up 65-year-old white women with a PMH of hypertension, left leg DVT and PE (10/2018), venous insufficiency s/p left leg vein stripping, Obstructive sleep apnea , Diabetes mellitus , obesity presents for 2 month follow-up. She was last seen in clinic on 03/09/2021. Since then she reports feeling well with no new complaints. She had an echo since last visit which revealed normal LVSF. She also had a venous reflux which revealed mild right sided reflux. She denies ER visits and hospitalizations since she was last seen. Denies chest pain. Denies shortness of breath at rest. Reports stable dyspnea on exertion. No orthopnea. No PND. Denies heart palpitations. Denies dizziness. Denies syncope or near syncope. Reports stable ankle or leg edema. No major bleeding events. No reported side effects from medications. Taking medications as prescribed with no missed doses. Denies snoring, daytime somnolence and AM headache. No known history of coronary artery disease, previous myocardial infarction, heart failure, valvular heart disease, arrhythmia or stroke reported. *Had venous duplex done in 01/15/19 showed Negative left sided venous doppler study . *Had ECHO done in 01/15/19 showed normal global systolic function *01/15/19 Arterial Doppler: Normal ankle-brachial index. No significant lower extremity peripheral arterial disease detected. *10/01/18 Alvina: No definite ischemia or infarct. 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 10/01/18 Venous Doppler: No evidence of lower left extremity deep venous thrombosis. 10/01/18 Alvina: No definite ischemia or infarct. 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 01/15/19 Arterial Doppler: Normal ankle-brachial index. No significant lower extremity peripheral arterial disease detected. 01/15/19 Venous Duplex: Negative left sided venous doppler study 09/27/18 CT Abdomen/Pelvis: No acute abdominal abnormality. Punctuate 1mm non obstructing right renal stone. Hepatic stenosis. Michelle Jimenez [employer]- [place], [place] - [facility] 05/21/2021 16:50:12 OBGyn Episode No OBEpisode recorded.
--- OUTSIDE RECORDS SUMMARY | 2025-01-13 10:53 | XMS_ITS | Data Portability ---
Author Organization [facility] Address [address] [place] [address] Assessment No assessment recorded. Plan of Treatment Reminders Order Date Submit Date Provider Last Modified By Organization Details Last Modified Time Details Appointments None recorded. 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 Exposed to pos COVID-19 patient. [facility] 130 2019 020 KYLE [facility] (Lab), [address] [place], [address], 0 13:38:19 glucose, fingerstick , blood 2015 016 [facility] In-Office Order, Internal Use Only DO Not Attach Compendium DO Not Attach Compendium, Do Not Delete/merge, [id number] 6 17:27:01 CMP, serum or plasma 2015 016 bfalconer 1 [facility], [facility], [address], [place], [address], 6 11:34:23 albumin, urine 2015 016 [facility], [address] [facility], [address], [place], [address], 6 10:12:41 lipid panel, serum 2015 016 bfalconer 1 [facility], [address], [address], [place], [address], 6 11:34:23 HbA1c (hemoglobin A1c), blood 2015 016 bfalconer 1 [facility], [address], [address], [place], [address], 6 11:34:23 glucose, fingerstick , blood 2015 016 [facility] In-Office Order, Internal Use Only DO Not Attach Compendium DO Not Attach Compendium, Do Not Delete/merge, [id number] 6 16:27:00 unlisted lab - ovarian malignancy risk-juarez 2015 016 KYLE [facility], [address] [facility] [address], [address], [place], [address], 6 16:25:28 Referral vascular surgeon referral 2015 016 [facility] Not available 6 12:32:19 Procedures None recorded. Surgeries None recorded. Imaging None recorded. Medication Orders lisinopril 10 mg tablet 2015 016 [id number], [address], [place], [place], [id number], 6 17:27:01 glimepiride 1 mg tablet 2015 016 [id number], [address], [place], [place], [id number], 6 17:27:01 metformin 500 mg tablet 2015 016 [facility] #[facility]31, [address], [place], [place], [id number], 6 16:27:01 Zithromax Z-Miguelito 250 mg tablet 2015 016 [facility] #72210, [address], [place], [place], [id number], 6 16:27:01 Cheratussin AC 10 mg-100 mg/5 mL oral liquid 2015 016 [facility] #[id number], [address], [place], [place], [id number], 6 16:27:01 Patient TargetsNo targets recorded. Patient Instructions Encounter Date Encounter Id Patient Instructions Last Modified By Organization Details Last Modified Time 11/24/2015 [id number] functional ovarian cyst: care instructions [email or web address] Not available 11/24/2015 15:36:32 12/21/2015 [id number] Acute Sinusitis: Care Instructions strice Not available 12/21/2015 16:43:17 bronchitis: care instructions strice Not available 12/21/2015 16:43:17 02/10/2016 [id number] When You Want to Lose Weight: Care Instructions strice Not available 02/11/2016 10:13:09 10/27/2020 [id number] Reviewed the following recommendations: -Stay home and separate from others as much as possible. -Monitor your symptoms and seek medical attention for trouble breathing, persistent chest pain, confusion, or bluish lips or face. -Wear a mask if you must be around other people. -Wash your hands often for 20 seconds with soap and water and clean high-touch surfaces daily -You may discontinue home isolation if your symptoms are improving and it has been 10 days since symptoms started. [email or web address] Not available 10/27/2020 13:31:27 02/08/2021 [id number] Reviewed the following recommendations: -Stay home and separate from others as much as possible. -Monitor your symptoms and seek medical attention for trouble breathing, persistent chest pain, confusion, or bluish lips or face. -Wear a mask if you must be around other people. -Wash your hands often for 20 seconds with soap and water and clean high-touch surfaces daily -You may discontinue home isolation if your symptoms are improving and it has been 10 days since symptoms started. [email or web address] Not available 02/08/2021 14:38:34 Reason for Referral Vascular Surgeon Referral fo r Varicose vein finding Referring Physician: Flip Lindsey, Internal Medicine, Encounter Date: 12/21/2015 Results Created Date Observation Date Name Description Value Unit Range Abnormal Flag Note LastModifiedBy Organization Detail LastModifiedTime 02/10/20 16 02/10/2016 glucjaimie ramos se rstic k, blood Blood Glucose: mg/dl 79 Not Available In-Off ice Order Internal Use Only DO Not Attach Compendium DO Not Attach Compendium, Do Not Delete/merge, [id number] 02/10/2016 16:27:32 12/21/19 16 12/21/2015 glucjaimie ramos se rstic k, blood Blood Glucose: mg/dl 111 Not Available In-Off ice Order Internal Use Only DO Not Attach Compendium DO Not Attach Compendium, Do Not Delete/merge, [id number] 12/21/2015 15:33:53 11/24/19 16 11/24/2015 juarez (risk of ovari an alin tolbert algor ithm score ), serum (merle enopa usal) premenopausa l interp: low COMMEN T IF THE PATIE NT IS PREME NOPAU ASHLIE, THEN THE PREME NOPAU ASHLIE JUAREZ SCORE OF LESS THAN 1.31 IS CONSI STENT WITH A LOW LIKEL IHOOD OF SEEMA TOLBERT ON SURGE RY. Not Available [facility] ([facility]) [address], [place], [address], 11/26/2015 16:25:28 11/24/19 16 11/24/2015 juarez (risk of ovari an alin tolbert algor ithm score ), serum (merle enopa usal) postmenopaus al interp: low COMMEN T IF THE PATIE NT IS POSTM ENOPA USAL, THEN THE POSTM ENOPA USAL JUAREZ SCORE OF LESS THAN 2.77 IS CONSI STENT WITH A LOW LIKEL IHOOD OF FINDI NG A ALIN TOLBERT ON SURGE RY. Not Available [facility] ([facility]) [address] [facility], [place], [address], 11/26/2015 16:25:28 11/24/19 16 11/24/2015 juarez (risk of ovari an malig miguel algor ithm score ), serum (merle enopa usal) comment: COMMEN T THE RISK FOR OVARI AN MALIG MIGUEL ALGOR ITHM (JUAREZ ) TEST IS INTEN DED TO AID IN ASSES SING WHETH ER A PREME NOPAU ASHLIE OR POSTM ENOPA USAL WOMAN WHO PRESE NTS WITH AN OVARI AN ADNEX AL MASS IS AT HIGH OR LOW LIKEL IHOOD OF FINDI NG ALIN TOLBERT ON SURGE RY. JUAREZ IS INDIC ATED FOR WOMEN WHO MEET THE FOLLO WING CRITE TOMMY: OVER AGE 18; OVARI AN ADNEX AL MASS PRESE NT FOR WHICH SURGE RY IS PLANN ED, AND NOT YET REFER RED TO AN ONCOL OGIST . JUAREZ MUST BE INTER PRETE D IN CONJU NCTIO N WITH AN INDEP ENDEN T CLINI MIRIAN AND RADIO LOGIC AL ASSES SMENT . THE TEST IS NOT INTEN DED A SCREE THAO OR STAND -DIPIKA E DIAGN OSTIC ASSAY . Not Available [facility] ([facility]) [address] [facility], [place], [address], 11/26/2015 16:25:28 11/24/19 16 11/26/2015 juarez (risk of ovari an malig miguel algor ithm score ), serum (merle enopa usal) cancer antigen 125 (Ca125) 11.6 U/mL 0.0-35 .0 ABBOT T CMIA METHO DOLOG Y Not Available [facility] ([facility]) [address] [facility], [place], [address], 11/26/2015 16:25:28 11/24/19 16 11/26/2015 juarez (risk of ovari an malig miguel algor ithm score ), serum (merle enopa usal) he4 35 pmol/ L 0-150 FUJIR EBIO EIA METHO DOLOG Y CA125 VALUE S OBTAI CHRISTINA WITH DIFFE RENT ASSAY METHO DS OR KITS CANNO T BE USED INTER CAM EABLY . Not Available [facility] ([facility]) [address] [place], [address], 11/26/2015 16:25:28 11/24/19 16 11/26/2015 juarez (risk of ovari an malig miguel algor ithm score ), serum (merle enopa usal) premenopausa l juarez 0.33 see below Not Available [facility] ([facility]) [address] [place], [address], 11/26/2015 16:25:28 11/24/19 16 11/26/2015 juarez (risk of ovari an malig miguel algor ithm score ), serum (merle enopa usal) postmenopaus al juarez 0.69 see below Not Available [facility] ([facility]) [address] [place], [address], 11/26/2015 16:25:28 Result Notes None recorded. Problems Name Problem SNOMED Code Status Onset Date Resolution Date Notes Provider Name and Address Organization Details Recorded Time Tachyarrhythmi a 6987076 Active Jad Gr[place] null, [place] - [facility] 6 17:47:23 Pain in left lower limb 910437027 Active aJd [place] [facility] 6 17:47:23 Chronic sciatica 568072585 Active Jad [place] [facility] 6 17:47:23 Osteoarthritis 824357641 Active [place]ad [place] [facility] 6 17:47:23 Chronic low back pain 864239247 Active [place]ad [place] [facility] 6 17:47:23 Diabetes mellitus 15588609 Active Flip Lindsey MD Attn: Lacie g,[address] [facility], [place], [address] [place] [facility] 6 17:27:01 Obesity 957480276 Active Jad Grayson null, [place] - [facility] 6 17:47:23 Hypertensive disorder 60290686 Active Flip Lindsey MD Attn: Lacie lars,[address] [facility], [place], [address], [place] [facility] 6 17:27:01 Varicose vein finding 799438023 Active Flip Lindsey MD Attn: Lacie lars,[address] [facility], [place], [address], [place] [facility] 6 16:27:00 Morbid obesity 300141353 Active Flip Lindsey MD Attn: Lacie lars,[address] [facility], [place], [address], [place] [facility] 6 17:27:01 Follicular cyst of ovary 3914481 Active Jad Kenan null, [place] [facility] 6 17:47:23 Menopausal syndrome 555554336 Active Flip Lindsey MD Attn: Lacie g,[address] [facility], [place], [address], [place] [facility] 6 17:27:01 Acute bronchitis 14460798 Active Flip Lindsey MD Attn: Lacie lars,[address] [facility], [place], [address], [facility] - [facility] 6 16:27:00 Acute sinusitis 89501145 Active Flip Lindsey MD Attn: Lacie lars,[address] [facility], [place], [address], [facility] - [facility] 6 16:27:00 Tension-type headache 234536620 Active Jad MunsonKenan null, [place] - [facility] 6 17:47:23 Problem Notes None recorded. Procedures Surgical History Date Name Laterality Status Provider Name and Address Organization Details Recorded Time 016 Most Recent Mammogram completed Jamzyne Qiu [place] - [facility] 11/24/2015 15:09:51 010 Hemorrhoidectomy completed Franchesca Lopez JEWELER APPRENTICE [facility] 09/25/2014 08:14:22 010 Gallbladder Surgery completed Franchesca Lopez JEWELER APPRENTICE [facility] 09/25/2014 08:14:22 993 Date of Last Pap Smear completed Jazmyne Qiu ROSA [facility] 11/24/2015 15:09:51 980 Caesarean Section completed Jazmyne Qiu ROSA [facility] 15:10:14 Hysterectomy completed Seun Johns [facility] 09/29/2014 11:35:12 [facility] 11:35:12 Imaging Results None recorded. Procedure Notes None recorded. Medical Equipment None Reported. Allergies No known drug allergies Medications Name Sig Start Date Stop Date Status Note LastModified by Organization Details LastModified Time losartan 50 mg tablet TAKE 1 TABLET BY MOUTH EVERY DAY active Not Available Not Available No t Available cyclobenzapri ne 10 mg tablet active Not Available Not Available Not Available furosemide 40 mg tablet TK 1 T PO QD active Not Available Not Available No t Available metformin 500 mg tablet TAKE 1 TABLET BY MOUTH EVERY DAY WITH BREAKFAST active Not Available Not Available No t Available gabapentin 600 mg tablet TAKE 1 TABLET BY MOUTH THREE TIMES DAILY active Not Available Not Available No t Available cetirizine 10 mg tablet TK 1 T PO D active Not Available Not Available No t Available azithromycin 250 mg tablet ZPK active Not Available Not Availabl e Not Available fluconazole 150 mg tablet TK 1 T PO NOW UTD active Not Available Not Available No t Available valacyclovir 1 gram tablet TK 1 T PO Q 8 H active Not Available Not Available No t Available clarithromyci n 500 mg tablet active Not Available Not Available Not Available metronidazole 500 mg tablet active Not Available Not Availabl e Not Available omeprazole 40 mg capsule,delay ed release TK ONE C PO D active Not Available Not Available No t Available spironolacton e 25 mg tablet TK 1 T PO QD active Not Available Not Available No t Available glimepiride 1 mg tablet active Not Available Not Available No t Available meloxicam 7.5 mg tablet TAKE 1 TABLET BY MOUTH EVERY DAY NEEDED active Not Available Not Available No t Available alprazolam 0.5 mg tablet TK 1 T PO QD PRN active Not Available Not Available No t Available benzonatate 100 mg capsule TK 1 C PO TID PRF COUGH active Not Available Not Available No t Available pantoprazole 40 mg tablet,delaye d release TK 1 T PO ONCE DAILY active Not Available Not Available N ot Available simvastatin 20 mg tablet TAKE 1 TABLET BY MOUTH EVERY DAY IN THE EVENING active Not Available Not Available No t Available erythromycin 5 mg/gram (0.5 %) eye ointment APPLY TO RIGHT EYE DAILY FOR 5 DAYS active Not Available Not Available No t Available lisinopril 10 mg tablet TAKE 1 TABLET BY MOUTH EVERY DAY active Not Available Not Available No t Available polymyxin B sulfate 10,000 unit-trimetho prim 1 mg/mL eye drops INT 1 GTT IN OS Q 4 HOURS. DO NOT TOUCH TIP OF DROPPER TO EYE active Not Available Not Available No t Available gabapentin 300 mg capsule TK 1 C PO TID. AVOID DRIVING OR OPERATING MACHINES active Not Available Not Available No t Available omeprazole 20 mg capsule,delay ed release TK 2 CS PO D active Not Available Not Available No t Available ergocalcifero l (vitamin D2) 1,250 mcg (50,000 unit) capsule TAKE 1 CAPSULE BY MOUTH 1 TIME EVERY WEEK active Not Available Not Available No t Available Cheratussin AC 10 mg-100 mg/5 mL oral liquid Take 10 mL every 6 hours by oral route for 7 days. 2015 active Not Available Not Available Not Avai lable fluticasone propionate 50 mcg/actuation nasal spray,suspens ion SHAKE LQ AND U 1 SPR IEN BID active Not Available Not Available No t Available spironolacton e 50 mg tablet TK 1 T PO QD active Not Available Not Available No t Available amoxicillin 875 mg-potassium clavulanate 125 mg tablet TK 1 T PO BID active Not Available Not Available No t Available Vitals Date Recorded Body height Body weight Body mass index (BMI) Systolic blood pressure Diastolic blood pressure Provider Name and Address Organization Details Last Updated DateTime 11/24/2015 162.56 cm 507432.0 162 g 44.6 kg/m2 144 mm[Hg] 90 mm[Hg] Jazmyne Qiu [place] - [facility] 6 15:18:55 Date Recorded Body weight Body height Body temperature Body mass index (BMI) Oxygen saturation Oxygen saturation in Arterial blood by Pulse oximetry Heart rate Systolic blood pressure Diastolic blood pressure Provider Name and Address Organization Details Last Updated DateTime 6 206809. 019676 g 162.56 cm 98.7 [degF] 45.1 kg/m2 99 % 99 % 89 /min 116 mm[Hg] 80 mm[Hg] Paresh Garcia MA [facility] 6 15:33:53 Date Recorded Heart rate Oxygen saturation Oxygen saturation in Arterial blood by Pulse oximetry Body weight Body mass index (BMI) Body temperature Body height Systolic blood pressure Diastolic blood pressure Provider Name and Address Organization Details Last Updated DateTime 6 77 /min 98 % 98 % 280995. 895934 g 44.4 kg/m2 98.1 [degF] 162.56 cm 122 mm[Hg] 74 mm[Hg] Paresh Garcia MA [facility] 6 16:27:32 Social History Question Answer Notes LastModified by Organizat ion Details LastModified Time Tobacco Smoking Status Former Smoker [facility] 09/29/2014 11:36:08 Do You Have An Advance Directive? No Information not available 11/24/2015 What Is Your Level Of Alcohol Consumption? None Information not available 09/29/2014 Is Blood Transfusion Acceptable In An Emergency? Yes Information not available 11/24/2015 What Is Your Level Of Caffeine Consumption? Moderate Information not available 09/29/2014 How Much Tobacco Do You Chew? None Information not available 11/24/2015 Are You Currently Employed? No Information not available 11/24/2015 What Type Of Diet Are You Following? REGULAR Information not available 11/24/2015 Which Illicit Or Recreational Drugs Have You Used? 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 With Others Information not available 09/29/2014 How Many Children Do You Have? 5 Information not available 09/29/2014 Performs Monthly Self-breast Exam? No Information no t available 11/24/2015 Do You Use Protection During Sex? No Information not available 11/24/2015 What Is Your Relationship Status? Information not available 11/24/2015 Seat Belts Used Routinely Yes Information not available 11/24/2015 Are You Sexually Active? No Information not available 11/24/2015 At What Age Did You Start Smoking Tobacco? 16 Information not available 11/24/2015 How Much Tobacco Do You Smoke? 1.5 PPD Information not available 11/24/2015 General Stress Level Low Information not available 11/24/2015 Do You Use Sunscreen Routinely? Yes Information not available 11/24/2015 How Many Years Have You Smoked Tobacco? 20 Information not available 11/24/2015 Sex: Female Functional Status Question Answer Note LastModified by Organization D etails LastModified Time Are you able to care for yourself? Yes Information n ot available 09/29/2014 What is your exercise level? None Information not available 11/24/2015 Mental Status None recorded. Family History Relationship Description Onset Age of this Age Resolved Age Notes LastModified by Organization Details LastModified Time Father Diabetes mellitus [email or web address] Not available 11/24 17:47:28 Mother Malignant tumor of breast [email or web address] Not available 11/24 17:47:28 Mother Hypertensive disorder [email or web address] Not available 11/24 17:47:28 Medical History Condition Response Coronary Artery Disease N Other Y Atrial Fibrillation N High Blood Pressure Y Breast Cancer N Lung Disease N Depression N COPD N Blood Clots N Breast Problem N Anesthesia Complications N Headaches/Migraines N Anxiety Disorder N Muscle, Joint, or Bone Problems N Infertility N Polyps N Acid Reflux (GERD) N Cancer N Stroke N Endometriosis N High Cholesterol N Liver Disease N Headaches N Thyroid Problems N Kidney or Bladder Problems N GI Problems N Acne N Eating Disorder N Skin Problems N Anemia N Heart Attack (ME) N Diabetes Y Ovarian Cancer N Blood Transfusions N Seizures/Epilepsy N Abuse/Domestic Violence N Asthma N Allergies N Hepatitis N Heart Disease N Pre-Eclampsia N Heart Failure N Osteoporosis N Gynecological History Statement/Question Response Abnormal Pap N On BCP's at Conception? N STIs/STDs N HPV Vaccine N Most Recent Mammogram 10/06/2016 Age at Menarche 13 Current Control Method None Age at First Child 18 Sexually Active? N Menses Monthly N Date of Last Pap Smear 11/06/1992 Sexual Problems? N Desired Control Method None Obstetrics History GPAL:G 5 P 4 0 0 5 Type Value Full Term 4 Living 5 Total 5 Past Encounters Encounter ID Performer Location Encounter Start Date Encounter Closed Date Diagnosis/Indication Diagnosis SNOMED-CT Code Diagnosis ICD10 Code Diagnosis Note [id number] HARRIET[address] Stone[facility] Jimmy pryor [address] [facility] [place] [address] 09/29/2014 10:59:38 09/29/2014 12:54:13 Hypertensive disorder 74781718 Tension-type headache 717211826 [id number] Hali (Adult Med) [address] [place] [id number] 12/03/2014 14:20:09 12/03/2014 15:42:26 Hypertensive disorder 74414844 Varicose vein finding 262285111 Tension-type headache 422950122 Morbid obesity 230911547 Tachyarrhythmia 9184891 [id number] SVETA Fregoso (Adult Med) [address] [place] [address] 01/09/2015 15:29:35 01/09/2015 16:01:46 Hypertensive disorder 20654348 Morbid obesity 369009944 Tachyarrhythmia 5123649 [id number] [facility] (Adult Med) [address] [place] [id number] 03/13/2015 15:36:34 03/13/2015 16:42:08 Pain in left lower limb 490946123 Hypertensive disorder 73906359 Morbid obesity 714112945 Varicose vein finding 759479908 Chronic sciatica 835337033 Osteoarthritis 104289626 Chronic low back pain 775630534 [id number] MD Hali Kwon (Adult Med) [address] [place] [id number] 05/15/2015 15:28:57 05/15/2015 16:50:55 Chronic low back pain 127337540 Chronic sciatica 625016877 Hypertensive disorder 64612803 Morbid obesity 883446967 Osteoarthritis 017120623 Varicose vein finding 922489646 [id number] ROSA Frey (Adult Med) [address] [place] [address] 07/23/2015 15:29:45 07/23/2015 16:42:28 Chronic low back pain 676428651 Chronic sciatica 110694193 Morbid obesity 215564745 Osteoarthritis 994652345 Varicose vein finding 824067235 Hypertensive disorder 73875361 Family his tory of diabetes mellitus [id number] MD Hali Kwon (Adult Med) [address] [place] [address] 09/21/2015 14:59:10 09/21/2015 16:28:38 Diabetes mellitus 17408275 E13.65 Obesity 512720048 E66.9 Hypertensive disorder 38 045597 I10 Osteoarthritis 875848226 M19.90 Tension-type headache 39 2215451 G44.209 Postmenopausal state 764 47438 Z78.0 [id number] Jad Grayson [facility] ([employer]) [address] [place] [id number] 11/24/2015 14:34:54 11/24/2015 17:49:32 Follicular cyst of ovary 8363709 N83.0 History of cyst, hysterecto my 1988 due to fibroids Menopausal syndrome 1237 25025 N95.9 mammogram completed 09/20, no longer needs pap due to hysterecto my [id number] MD Hali Kwon (Adult Med) [address] [place] [id number] 12/21/2015 15:00:40 12/21/2015 16:17:42 Diabetes mellitus 46691349 E13.65 E11.9 Acute bronchitis 5490606 2 J20.9 Acute sinusitis 63912006 J01.90 Varicose vein finding 27 5563766 I83.812 [id number] MD Hali Kwon (Adult Med) [address] [place] [id number] 02/10/2016 16:11:26 02/10/2016 17:19:40 Diabetes mellitus 94826903 E13.65 E11.9 Menopausal syndrome 1237 61456 N95.9 Morbid obesity 868514342 E66.01 Hypertensive disorder 38 668483 I10 [id number] BONILLA Nolasco [address] [place] [address] 10/27/2020 13:02:30 10/28/2020 12:08:48 Viral screening 332799989 Z11.59 D/w pt the current pandemic of COVID-19 and call for social isolation in order to blunt the curve and minimize risk and spread. Encouraged patient and family to take restrictio ns seriously. They have verbalized understand ing of such. Viral syndrome 390393604 B34.9 [id number] SRI Prakashia [address] [place] [address] 02/08/2021 14:33:34 02/09/2021 14:42:15 Viral screening 530637091 Z11.52 Viral syndrome 139359576 B34.9 Health Concerns Section Related Observation LastModified by Organization Detai ls LastModified Time None Recorded Concern Status LastModified by Organization Details LastModified Time None Recorded Advance Directives Directive N: Payers Encounter Date Sequence Insurance Name Policy Number Policy Pop Covered Member ID Pop Member ID Guarantor Name 11/24/2015 1 [facility] PRIOR TO 05/06/2021 (MEDICAID REPLACEMENT - HMO) Danika Pérez [id number] Danika Pérez 12/21/2015 1 [facility] PRIOR TO 05/06/2021 (MEDICAID REPLACEMENT - HMO) Danika Pérez [id number] Danika Pérez 02/10/2016 1 [facility] PRIOR TO 05/06/2021 (MEDICAID REPLACEMENT - HMO) Danika Pérez [id number] Danika Pérez 10/27/2020 1 [facility] PRIOR TO 05/06/2021 (MEDICAID REPLACEMENT - HMO) Danika Pérez [id number] Danika Pérez 02/08/2021 1 [facility] PRIOR TO 05/06/2021 (MEDICAID REPLACEMENT - HMO) Danika Pérez [id number] Danika Pérez Notes Date Note Type Note Provider Name and Address Organization Details Recorded Time 11/24/2015 text/html Prior cyst wants testing [facility]/24/2015 17:49:14 12/21/2015 text/html She is no longer taking the Metformin. Chest cold, sinus drainage starting yesterday, non-smoker. NKDA. Her sugar diabetes is well controlled. Her BP is well maintained. Flip Lindsey MD Attn: Accounting,[address] [facility], [place], [address], [facility] 12/21/2015 16:27:46 02/10/2016 text/html Family benjamin with her [id number] with heroin problem on the run with her 2 grand children 3 and 6 year-old missing. Refills of medications for her COPD Flip Lindsey MD Attn: Accounting,[address] [facility], [place], [address], [facility] 02/10/2016 17:35:24 10/27/2020 text/html COVID ScreeningReported bypatient.Onset/Durati on of fever:no fever Associated Symptoms:no cough; no shortness of breath ComorbiditiesDiabetes; Heart DiseaseCOVID-19 Symptoms March 2020Reported bypatient.COVID-19 Signs and Symptomscough resolved; fever resolved; shortness of breath resolved; chills resolved; repeated shaking with chills resolved; muscle pain resolved; headache resolved; sore throat resolved; loss of taste or smell resolved; vomiting or diarrhea resolved; fatigue resolved; anorexia resolved Contacts and Exposureclose contact with a confirmed or suspected case of COVID-19; close proximity with person with COVID-19 Associated Symptoms:no sputum production; no wheezing; no runny nose; no vomiting; no diarrhea; no body aches; no nausea; no change in mental status; no hypotension; no tachycardia 64 yo female ,spoke via phone with C/O, , denies having any COVID-19 symptoms. Exposed to pos COVID-19 patient. CHAVA Walker NP Attn: Accounting,[address] [facility], [place], [address], [facility] 10/27/2020 13:31:59 02/08/2021 text/html Pt with a histor y of DM II, OA, HTN and obesity is requesting COVID-19 testing; as pt c/o watery eyes and rhinitis x 2 days. Pt reports being in contact with someone who recently tested positive. Paola Gerard, RN PALLIATIVE CARE-BC Attn: Accounting,[address] [facility], [place], [address], [facility] 02/08/2021 14:39:30 OBGyn Episode Ob Episode Information Episode Created Date Number of Fetuses Patient Bloodtype Patient rh Status Prepregnancy Weight lbs Domestic Partner Domestic Partner Phone Father Name Cutter Gas Status 11/24/19 16 1 CLOSED Fetus Data First Name Last Name Admitted to NICU Weight (g) Sex Living Outcome Pediatric Complications Fetus ID Race Codes Race Delivery Type 2863.29 95 F Full Term 83151 Standard Vaginal Delivery Mohinder Calculation Initial Mohinder Date [...] Complications Tubal Sterilization Discharge Date Comments 8 General 40 Gerri da Discharge Information Feeding Method Contraceptive Method Maternal HG B and HCT Levels Ob Episode Information Episode Created Date Number of Fetuses Patient Bloodtype Patient rh Status Prepregnancy Weight lbs Domestic Partner Domestic Partner Phone Father Name Cutter Gas Status 11/24/19 16 1 CLOSED Fetus Data First Name Last Name Admitted to NICU Weight (g) Sex Living Outcome Pediatric Complications Fetus ID Race Codes Race Delivery Type 3316.89 15 M Full Term 79995 Primary Mohinder Calculation Initial Mohinder Date Initial [...] Post Complications Tubal Sterilization Discharge Date Comments 5 General 40 Pablo Discharge Information Feeding Method Contraceptive Method Maternal HG B and HCT Levels Ob Episode Information Episode Created Date Number of Fetuses Patient Bloodtype Patient rh Status Prepregnancy Weight lbs Domestic Partner Domestic Partner Phone Father Name Cutter Gas Status 11/24/19 16 1 CLOSED Fetus Data First Name Last Name Admitted to NICU Weight (g) Sex Living Outcome Pediatric Complications Fetus ID Race Codes Race Delivery Type 3572.03 7 M Full Term 23841 Standard Vaginal Delivery Mohinder Calculation Initial Mohinder Date [...] Complications Tubal Sterilization Discharge Date Comments [address] Discharge Information Feeding Method Contraceptive Method Maternal HG B and HCT Levels Ob Episode Information Episode Created Date Number of Fetuses Patient Bloodtype Patient rh Status Prepregnancy Weight lbs Domestic Partner Domestic Partner Phone Father Name Cutter Gas Status 11/24/19 16 1 CLOSED Fetus Data First Name Last Name Admitted to NICU Weight (g) Sex Living Outcome Pediatric Complications Fetus ID Race Codes Race Delivery Type 2863.29 95 F Full Term 38791 Standard Vaginal Delivery Mohinder Calculation Initial Mohinder Date [...] Complications Tubal Sterilization Discharge Date Comments [address] Discharge Information Feeding Method Contraceptive Method Maternal HG B and HCT Levels Ob Episode Information Episode Created Date Number of Fetuses Patient Bloodtype Patient rh Status Prepregnancy Weight lbs Domestic Partner Domestic Partner Phone Father Name Cutter Gas Status 11/24/19 16 1 CLOSED Fetus Data First Name Last Name Admitted to NICU Weight (g) Sex Living Outcome Pediatric Complications Fetus ID Race Codes Race Delivery Type 2324.65 9 F Full Term 96429 Mohinder Calculation Initial Mohinder Date Initial Exam [...] Complications Tubal Sterilization Discharge Date Comments 0 General 37 Jerilyn Discharge Information Feeding Method Contraceptive Method Maternal HG B and HCT Levels
--- OUTSIDE RECORDS SUMMARY | 2025-01-13 10:53 | XMS_ITS | Clinical Summary ---
Author Organization [facility] Address [address] [facility] [place] [address] Care Team Providers Care Drum Operator Name Role Phone Josh Gonzalez MD Primary Care Provider [phone] Allergies No known active allergies Medications metFORMIN (GLUCOPHAGE) 500 mg tablet Take 500 mg by mouth daily with breakfast. Active simvastatin (ZOCOR) 20 mg tablet Take 20 mg by mouth daily with supper. Active furosemide (LASIX) 20 mg tablet TK 1 T PO QD 3 10/22/2018 Active losartan (COZAAR) 50 mg tablet TK 1 T PO QD 3 12/21/2018 Active omeprazole (PriLOSEC) 20 mg Capsule, Delayed Release(E.C.) TK 1 C PO QD AC 0 01/16/2019 Active aspirin (SHAYLA) 325 mg tablet Take 325 mg by mouth daily. Active Active Problems Problem Noted Date Diagnosed Date Secondary hypercoagulable state 10/08/2018 Family History Medical History Relation Name Comments No Known Problems Brother Other Father Breast Cancer Mother Hypertension Mother No Known Problems Sister 1 No Known Problems Sister 2 Stroke Sister 3 No Known Problems Sister 4 Relation Name Status Comments Brother Alive Father Mother Alive Sister 1 Alive Sister 2 Alive Sister 3 Alive Sister 4 Alive Social History Tobacco Use Types Packs/Day Years Used Date Smoking Tobacco: Former Cigarettes 1.5 30 1 12/09/1976 - 10/08/2007 Alcohol Use Standard Drinks/Week Comments No 0 (1 standard drink = 0.6 oz pur e alcohol) Comments No Sex and Gender Information Value Date Recorded Sex Assigned at Not on file Legal Sex Female 12:29 PM MANAGING PRINCIPAL Gender Identity Not on file Sexual Orientation Not on file Last Filed Vital Signs Vital Sign Reading Time Taken Comments Blood Pressure 126/84 05/13/2019 2:43 PM CDT Pulse 89 05/13/2019 2:43 PM CDT Temperature 36.9 C (98.4 F) 05/13/2019 2:43 PM CDT Respiratory Rate 18 10/08/2018 12:5 9 PM MANAGING PRINCIPAL Oxygen Saturation 98% 05/13/2019 2:43 PM CDT Inhaled Oxygen Concentration - - Weight 124.7 kg (274 lb 14.4 oz) 05/13/2019 2:43 PM CDT Height 162.6 cm (5' 4 ) 05/13/2019 2:43 PM CDT Body Mass Index 47.19 05/13/2019 2:43 PM CDT Plan of Treatment Health Maintenance Due Date Last Done Comments DTAP/TDAP/TD VACCINES (1 - Tdap) 1975 FIT-DNA Q 3 years 2001 FIT/FOBT Q 1 year 2001 Flex Sig/CT Colonography Q 5 years 2001 PNEUMOCOCCAL VACCINE 50+ YEARS (1 of 1 - PCV) 11/25/19 07 ZOSTER VACCINE (1 of 2) 2006 BREAST CANCER SCREENING 10/24/2019 10/24/2018 OSTEOPOROSIS SCREENING 2021 INFLUENZA VACCINE (#1) 2024 09/30/2018 COLORECTAL SCREENING 05/17/2028 05/17/2018 Colorectal Cancer Screening 05/17/2028 RSV VACCINE (60+ or ) (1 - 1-dose 75+ series) 2031 [place] [id number] [place] [address] MEDICAID Care Teams Drum Operator Relationship Specialty Start Date End Date Josh Gonzalez MD [address] [place] [phone] PCP - General Family Practice 01/11/19
== END 2025-01-13 09:39 | disposition home or self-care (01) ==
LOC: ANHAUDIO 09:38
PROVIDERS: PCP Nurse Practitioner Family; Visit Provider Nurse Practitioner Family
DX: H90.3 Sensorineural hearing loss, bilateral (principal); H93.13 Tinnitus, bilateral; Q17.3 Other misshapen ear; H93.8X1 Other specified disorders of right ear; H73.811 Atrophic flaccid tympanic membrane, right ear; Z92.21 Personal history of antineoplastic chemotherapy
CPT/HCPCS: 92557; 92567

== ENCOUNTER 2025-07-08 14:29 | Outpatient (CLI) | payer OTHER, SELFPAY ==
--- OUTSIDE RECORDS SUMMARY | 2021-05-31 04:57 | XMS_ITS | Continuity of Care Document ---
Author Organization [facility] Address [address] [place] [address] Phone Care Team Providers Care Senior Hr Manager Name Role Phone Josh Gonzalez MD Unavailable Unavailable Allergies, Adverse Reactions, Alerts Substance Reaction Status Criticality No Known Allergies Active No Inform ation Medications Medication Instructions Dosage Effective Dates (start - stop) Status Comments Zocor 20 mg tablet take 1 tablet by oral route every day in the evening 20 MG - Active losartan 50 mg tablet take 1 tablet by oral route every day 50 MG - Active Diflucan 150 mg tablet take 1 tablet by oral route once - Active omeprazole 20 mg capsule,delayed release take 1 capsule by oral route every day before a meal 20 MG - Active metformin 500 mg tablet take 1 tablet by oral route every day with morning meals - Active Vitamin D2 1,250 mcg (50,000 unit) capsule take one capsule orally once per week - Active Lasix 40 mg tablet take 1 tablet by oral route every day 40 MG - Active Xanax 0.5 mg tablet take 1 tablet by oral route every day as needed 0.5 MG - Active PRN for anxiety, avoid driving or operate machines Problems Condition Type Effective Dates (start - stop) Clini severiano Status Comments No Known Problems Procedures Procedure Date OFFICE/OUTPATIENT VISIT, EST OFFICE/OUTPATIENT VISIT, EST OFFICE/OUTPATIENT VISIT, EST OFFICE/OUTPATIENT VISIT, EST PREV VISIT, EST, AGE 40-64 OFFICE/OUTPATIENT VISIT, EST OFFICE/OUTPATIENT VISIT, EST OFFICE/OUTPATIENT VISIT, EST OFFICE/OUTPATIENT VISIT, EST OFFICE/OUTPATIENT VISIT, EST OFFICE/OUTPATIENT VISIT, EST OFFICE/OUTPATIENT VISIT, EST OFFICE/OUTPATIENT VISIT, EST PREV VISIT, NEW, AGE 40-64 Advance Directives Directive Yes / No Effective Date File Name No Information Encounters Encounter Description Practice Location Reason(s) For Visit Diagnoses Date Provider Providers Copied on Encounter OFFICE/OUTPA TIENT VISIT, [facility], [address], [place], [id number], tel:[phone] [facility] nail fungus1 (chief complaint) vaginal itching1 (chief complaint) gastric ulcer1 (chief complaint) HLP (chief complaint) HTN (chief complaint) Pre-DM (chief complaint) HyperlipidemiaMetab olic syndromeEssential (primary) hypertensionDermato phytosis of nailCandidiasis of vulva and vaginaChronic gastric ulcer w/o bleeding or perforationPolyp of colonFatty liver 1 Carlos Moreno. [facility] [address] [facility] [place], [id number] , [place]. tel:[phone] Referring Provider: [place], [id number]. tel:[phone] OFFICE/OUTPA TIENT VISIT, [facility], [address], [address], [place] tel:[phone] [facility] paresthesi a1 (chief complaint) LFT (chief complaint) D (chief complaint) edema1 (chief complaint) HLP (chief complaint) DM (chief complaint) EdemaMeralgia paresthetica, left lower limbHyperlipidemiaM etabolic syndromeLiver diseaseVitamin D deficiency, unspecified 0 Carlos Moreno. [address], [place], [address] , [place]. tel:[phone] Referring Provider: Crystal Galeano, [place], [place], [address]. tel:[phone] OFFICE/OUTPA TIENT VISIT, EST [facility], [address], [place], [place], [address], [place] tel:[phone] [facility] edema1 (chief complaint) EdemaVenous insufficiency 0 Carlos Moreno. [address], [place], [place], [address] , [place]. tel:[phone] Referring Provider: Crystal Galeano [address], [place], [place], [address]. tel:[phone] OFFICE/OUTPA TIENT VISIT, [facility], [address], [place], [place], [address], [place] tel:[phone] [facility] gastric1 (chief complaint) LE edema1 (chief complaint) ear (chief complaint) HLP (chief complaint) EdemaMeralgia paresthetica, left lower limbHyperlipidemiaE ssential (primary) hypertensionMetabol ic syndrome 0 Carlos Moreno. [address], [place], [place], [address] , [place]. tel:[phone] Referring Provider: Crystal Galeano [address], [place], [place], [address]. tel:[phone] PREV VISIT, EST, AGE 40-64 [facility], [address], [place], [place], [address], [place] tel:[phone] [facility] Physical (chief complaint) Encntr for general adult medical exam w/o abnormal findings 0 Carlos Moreno. [address], [place], [place], [address] , [place]. tel:[phone] Referring Provider: Josh Gonzalez [address], [place], [place], [address]. tel:[phone] OFFICE/OUTPA TIENT VISIT, [facility], [address], [place], [place], [address], [place] tel:[phone] [facility] mammo (chief complaint) neuropathy 1 (chief complaint) Inconclusive mammogramMeralgia paresthetica, left lower limb Nov-3 0-202 0 Carlos Florentino [address], [address], [place], [place], [address] , [place]. [phone] Referring Provider: Crystal Galeano [address], [place], [place], [address]. tel:[phone] OFFICE/OUTPA TIENT VISIT, [facility], [address], [place], [place], [address], [place] [phone] [facility] mammogram1 (chief complaint) leg pain1 (chief complaint) cough1 (chief complaint) Inconclusive mammogramMeralgia paresthetica, left lower limbAcute upper respiratory infection, unspecifiedPolyp of colonNevus, non-neoplastic Nov-0 2-202 0 Carlos Florentino [address], [address], [place], [place], [address] , [place]. [phone] Referring Provider: Crystal Galeano [address], [place], [place], [address]. tel:[phone] OFFICE/OUTPA TIENT VISIT, [facility], [address], [place], [place], [address], [place] tel:[phone] [facility] leg pain1 (chief complaint) weight loss1 (chief complaint) mole1 (chief complaint) Meralgia paresthetica, left lower limbAbnormal weight lossNevus, non-neoplastic Aug-0 3-201 9 Carlos Florentino [address], [place], [place], [address] , [place]. tel:[phone] Referring Provider: Crystal Galeano [address], [place], [place], [address]. tel:[phone] OFFICE/OUTPA TIENT VISIT, [facility], [address], [place], [place], [address], [place] tel:[phone] [facility] arm pain1 (chief complaint) inner thigh (chief complaint) sinus (chief complaint) Sciatica, left sideAcute sinusitisPain in left upper armBody mass index (BMI) 45.0-49.9, adult 9 Carlos Florentino [address], [place], [place], [address] , [place]. tel:[phone] Referring Provider: Crystal Galeano [address], [place], [place], [address]. tel:[phone] OFFICE/OUTPA TIENT VISIT, [facility], [address], [place], [place], [address], [place] tel:[phone] [facility] arm pain1 (chief complaint) left leg1 (chief complaint) GERD1 (chief complaint) HLP (chief complaint) DM (chief complaint) Pain in left upper armHyperlipidemiaMe tabolic syndromeParesthesia of skinGERD w/ esophagitis 9 Carlos Florentino [address], [place], [place], [address] , [place]. tel:[phone] Referring Provider: Crystal Galeano [address], [place], [place], [address]. tel:[phone] OFFICE/OUTPA TIENT VISIT, [facility], [address], [place], [place], [address], [place] tel:[phone] [facility] leg pain1 (chief complaint) GERD1 (chief complaint) foot swelling1 (chief complaint) rash (chief complaint) Acute gastric ulcer without hemorrhageParesthes ia of skinVenous insufficiencyRash 9 Carlos Florentino [address], [place], [place], [address] , [place]. tel:[phone] Referring Provider: Crystal Galeano [address], [place], [place], [address]. tel:[phone] OFFICE/OUTPA TIENT VISIT, [facility], [address], [place], [place], [address], [place] tel:[phone] [facility] bone density1 (chief complaint) HTN (chief complaint) GERD1 (chief complaint) back pain1 (chief complaint) Body mass index (BMI) 45.0-49.9, adultEssential (primary) hypertensionGERD w/ esophagitisLumbago with sciatica, left sideEncounter for screening for osteoporosis 9 Carlos Moreno. [address], [place], [place], [address] , [place]. [phone] Referring Provider: Crystal Galeano [address], [place], [place], [address]. tel:[phone] OFFICE/OUTPA TIENT VISIT, EST [facility], [address], [place], [place], [address], [place] tel:[phone] [facility] HLP (chief complaint) colon polyp1 (chief complaint) GERD1 (chief complaint) PreDM (chief complaint) GERD w/ esophagitisHyperlip idemiaPolyp of colonMetabolic syndromePulmonary embolism 9 Carlos Moreno. [address], [place], [place], [address] , [place]. tel:[phone] Referring Provider: Crystal Galeano [address] [facility] [address], [place], [place], [address]. tel:[phone] PREV VISIT, NEW, AGE 40-64 [facility], [address], [place], [place], [address], [place] tel:[phone] [facility] PHysical (chief complaint) Encntr for general adult medical exam w/o abnormal findings 9 Carlos Moreno. [address], [place], [place], [address] , [place]. tel:[phone] Family History Family Member Type Diagnosis Age At Onset Father Problem (finding) liver cirrhsosis (Cause Of ) 74 Mother Problem (finding) breast CA Sister Problem (finding) Stroke 30 Payers Payer name Insurance type Covered republican ID Authoriza tion(s) No Information Social History Type Description Quantity Date Captured Comments Alcohol Use Details No Caffeine Use Details Unknown Tobacco Use Status Ex-cigarette smoker 021 Smoking Status Former smoker Smoking Tobacco Use Details Cigarette: Age Started: 17, Age Stopped: 51, Years Used 35 Cigarette: 1.5 Packs per day, Pack Year: 51 Sex Female Vital Signs Date / Time: Height Weight BMI Pulse Rate Blood Pressure Temperature Respiratory Rate Body Surface Area Head Circumference BMI percentile Pulse Ox Inhaled Ox 10:00 AM 64.00 in 272.40 lbs 46.7 6 kg/m eter (2) 76 /min 135/74 mm[Hg] 97.2 F 18 /min Chief Complaint And Reason For Visit From encounter dated '05/31/2021 09:57'. nail fungus1 (chief complaint). Description: Pt has bilateral big toe nail fungus without toe pain for one week. Pt usually gets toe nail painted so she did not realize it until painting removal vaginal itching1 (chief complaint). Description: Pt notices vaginal itching with white discharge for one week. Pt denies any pelvic pain or bleeding. Pt tried OTC meds but not helping . gastric ulcer1 (chief complaint). Description: Pt has history of gastric ulcer on EGD 2018 Pt has not been taking omeprazole and she also never followed up with GI. Pt denies any abd pain. Pt also has tubular adenoma .Pt denies any lower GI issue HLP (chief complaint). Description: Pt has HLP pt takes zocor Pt needs refill. HTN (chief complaint). Description: Pt takes losartan and also lasix. Pt has not been taking spironolactone. her bp is ok today Pt denies any chest pain or sob or edema Pre-DM (chief complaint). Description: Pt takes metformin .Pt denies any polyuria polydipsia. Pt has not been checking her glucose at home. Plan Of Treatment Date Type Action Status Goal Tobacco cessation counseling completed Goal Tobacco cessation counseling completed Goal Special diet education compl eted Goal Special diet education compl eted Goal Tobacco cessation counseling completed Goal Tobacco cessation counseling completed Goal Special diet education compl eted Goal Tobacco cessation counseling completed Goal Special diet education compl eted Goal Tobacco cessation counseling completed Goal Special diet education compl eted Goal Special diet education compl eted Goal Tobacco cessation counseling completed Goal Special diet education compl eted Goal Tobacco cessation counseling completed Goal Special diet education compl eted Referral Ordered: AMARILIS ARGUELLO -Gastroenterology (related to Chronic gastric ulcer w/o bleeding or perforation) ordered Referral Ordered: AMARILIS ARGUELLO -Podiatric Medicine & Surgery Service Providers : Whipped Topping Supervisor (related to Dermatophytosis of nail) ordered Referral Referred To: AMARILIS ARGUELLO [address] [place] [address],[address], [phone] Ordered: Referrals: Gastroenterology. AMARILIS ARGUELLO. Evaluate and treat ordered Referral Referred To: AMARILIS ARGUELLO [address] [place] [address],[address], [phone] Ordered: Referrals: Podiatric Medicine & Surgery Service Providers : Whipped Topping Supervisor. AMARILIS ARGUELLO. Evaluate and treat ordered Referral Ordered: US EXAM, ABDOM, COMPLETE ordered Referral Ordered: COLONOSCOPY AND BIOPSY ordered Referral Ordered: CT THORAX W/O DYE ordered Referral Ordered: Neurology (related to Meralgia paresthetica, left lower limb) ordered Referral Ordered: MAMMOGRAM, ONE BREAST Right ordered Referral Ordered: Referrals: Neurology. Evaluate and treat ordered Referral Ordered: Plastic Surgery (related to Nevus, non-neoplastic) ordered Referral Ordered: Referrals: Plastic Surgery. Evaluate and treat ordered Referral Ordered: MRI LUMBAR SPINE W/O DYE ordered Referral Ordered: US ARTERIAL DOPPLER ordered Referral Ordered: US VENOUS DOPPLER ordered Referral Ordered: MOTOR NERVE CONDUCTION TEST ordered Referral Ordered: OPERATIVE UPPER GI ENDOSCOPY ordered Referral Ordered: DXA BONE DENSITY, AXIAL ordered History Of Present Illness Encounter Date Complaint History Of Prese nt Illness nail fungus1 Pt has bilateral big toe nail fungus without toe pain for one week. Pt usually gets toe nail painted so she did not realize it until painting removal vaginal itching1 Pt notices vagi nal itching with white discharge for one week. Pt denies any pelvic pain or bleeding. Pt tried OTC meds but not helping . gastric ulcer1 Pt has history o f gastric ulcer on EGD 2018 Pt has not been taking omeprazole and she also never followed up with GI. Pt denies any abd pain. Pt also has tubular adenoma .Pt denies any lower GI issue HLP Pt has HLP pt ta kes zocor Pt needs refill. HTN Pt takes losarta n and also lasix. Pt has not been taking spironolactone. her bp is ok today Pt denies any chest pain or sob or edema Pre-DM Pt takes metform in .Pt denies any polyuria polydipsia. Pt has not been checking her glucose at home. paresthesia1 Pt has left uppe r thigh paresthesia .Pt has jing with neurology in two weeks .Pt denies any loss of bladder control. Pt has mild low back pain LFT Pt has mildly el evated LFT .pt denies any abd pain or jaundice .Pt rarely drinks alcohol D Pt has low D. Pt denies any fx edema1 Pt has LE depend ent edema. Pt takes lasix also Pt states that above meds are helping pt denies any calf pain HLP Pt has HLP Pt ta kes zocor. her lipid profile is ok Pt denies any myalgia DM Pt has borderlin e Dm Pt takes metformin. Her glucose and A1c is normal edema1 Pt c/o worsening bilateral LE swelling and edema and toe tingling for several weeks. Pt has been staying home due to pandemic and sedentary and she has been gaining weight. Pt does have history of venous insufficiency. Pt denies any chest pain or sob. Pt denies any cold extremity or claudication symptoms. Pt had been taking lasix and spironolactone 25 mg which did help but not so much anymore LE edema1 Pt c/o bilateral LE and ankle edema since 5 days ago. Pt states that the swelling is better in the morning but gets worse as the days goes ,Pt has been eating a lot of chips and has been staying at home without any activity Pt gained some weight Pt denies any sob. ear Pt c/o mild tinn itus and bird chipping in right ear for 4 weeks. Pt denies any hearing loss Pt denies any ear pain or drainage. Pt has mild sinus congestion with sneezing lately. gastric1 Pt has gastric u lcer and tubular adenoma ,pt takes omeprazole and doing ok. Pt denies any abd pain or GI bleeding. HLP Pt has HLP Pt ta kes zocor Pt denies any myalgia. Physical Pt needs annual physical. pt has HLP. Pt takes zocor Pt denies any myalgia Pt has gastric ulcer. Patient take omeprazole per GI. Patient denies any abdominal pain or GERD. Patient has mild low back pain with this left side numbness. Patient is doing okay with gabapentin. Patient has borderline diabetes. Patient take metformin. Patient does not check sugar. Patient has hypertension. Patient take losartan. Her blood pressure stable. Patient is current anxiety. Patient take Xanax PRN. Patient denies any depression or any suicidal thought. Patient has lower extremity edema. Patient take Lasix and doing ok. Patient complains of vaginal yeast infection for 2 days. Patient noticed white itchy discharge. Patient denies any risk for STD. Patient denies any urinary tract infection symptoms. mammo Pt has abnormal right screening mammogram. pt denies any breast issue or pain or nodule. Pt just had diagnostic right mammogram and ultrasound done. neuropathy1 Pt c/o left thig h pain and numbness sometimes. Pt doing ok with neurontin mammogram1 Pt has abnormal right mammogram Pt denies any breast nodule or pain Pt denies any breast discoloration cough1 Pt c/o productiv e coughing for one week. pt c/o mild diarrhea without blood. Pt wants abx. Pt denies any recent travel or sick contact pt denies any fever chill. PT denies any sore throat or ear pain Pt denies any sob or chest pain leg pain1 Pt c/o numbness left lateral and inner thigh and dull pain chronically. Pt denies any loss of bladder control. Pt has mild low back pain with left sciatica ,MRI of L spine benign. NCS benign. Pt also had negative venous doppler and also arterial doppler. Her symptoms are much better with neurontin PT denies any chest pain or sob leg pain1 Pt has chronic l eft inner thigh spasm and pain and pins and needle and burning feeling for several years. Pt states that it does not happen all the time and she only notices when she lie on left side or bend her leg the wrong pain pt denies any loss of bladder control. Pt states that she has not noticed much of her symptoms since taking neurontin. Pt does have mild low back pain. weight loss1 Pt is intentiona lly losing weight pt cut off sweet and is walking more pt denies any GI issue appetite loss, etc Pt denies any early satiety mole1 pt has chronic d ark mole right lower lip for 15 years Pt denies any bleeding or itching or burning or change in appearance. Pt told me she was checked by dermatology 6 years ago and was told it is a blue mole, which is benign sinus Pt has sinus iss ue for several day with sinus pain, purulent sinus drainage, sore throat and ear pain Pt denies any fever, chill inner thigh Pt has chronic l eft medial inner thigh dull pain and spasm. pt had negative left leg duplex venous doppler and also NCS showed left quadricept muscle motor nerve issue Pt denies any back pain Pt does have DDD. Pt states that it occurs in waves around 10-15 mins per episodes and multiple times per day. Pt denies any left sciatica or any loss of bladder control. Pt has some sensory issue left inner thigh arm pain1 Pt states that l eft upper arm pain resolved. Ultrasound venous ok GERD1 Pt has gastric u lcer PT is on omeprazole by GI, Pt denies any abd pain HLP Patient has hype rlipidemia. Patient takes Zocor. Patient denies any myalgia. Patient needs refill. DM Patient has bord geena diabetes. Continue metformin. Patient denies any polyuria polydipsia. Patient said her sugars run 100. Patient denies any numbness or tingling in both feet. arm pain1 Pt c/o left arm pain except for left elbow for 2-3 days. Pt denies any injury. pt denies any hand weakness or any numbness or tingling Pt denies any neck pain or left radiculopathy. Pt has dull ache throughout left arm. PT denies any injury left leg1 Pt has chronic l eft leg numbness and tingling and some vague pain with ambulation ,Pt had negative DVT study Pt denies any sciatica or any loss of bladder control. Patient denies any weakness. Patient states that the pain discomfort seem to be worse with walking. leg pain1 pt c/o left medi al thigh pain. Pt denies any back pain Pt denies any sciatica or any loss of bladder control. Pt denies any calf pain .pt had NCS with showed some abnormality of the quadricept motor neurons. Pt does have left leg numbness and tingling as well. Pt denies any calf pain. pt has above symptoms for years. GERD1 Pt had EGD done which showed gastric ulcer. Pt is on 40 mg omeprazole now. Pt denies any abd pain. foot swelling1 Pt c/o bilateral ankle and foot swelling chronically, which is getting worse lately. Pt denies any sob. Pt denies any calf pain rash The patient pres ents for rash. Pertinent negatives include bleeding, fatigue, pruritus and scaling. Additional information: Pt notices itchy rash both forearm for two weeks. Pt denies any recent travel or sick contact. Pt denies any rash rest of body. bone density1 Pt has normal justa ne density. pt denies any fracture. Pt takes calcium and D Pt is trying weight bearing exercise HTN Pt has HTn. Pt t akes losartan and her BP is stable. GERD1 Pt has GERD P de nies any active symptoms with omeprazole. pt has not heard from GI yet back pain1 Pt has chronic l ow back pain with left sciatica and left medical thigh hot feeling and also tingling. for over 10 years. pt denies any worsening pain Pt denies any loss of bladder control. Pt had negative arterial doppler and also duplex venous study on left leg two weeks ago at cardiology office and was all negative. Pt denies any recent travel or bedrest Pt denies any chest jessy or sob HLP Pt has HLP P kelsi es zocor Pt denies and myalgia. pt takes any myalgia colon polyp1 Pt has tubular a denoma on colonoscopy 2016. Pt was recommend to repeat in 2019. Pt denies any lower GI issue GERD1 Pt had CT which showed esophagitis. Pt does have GERD and she takes Rolaids once per week. pt has GERD symptoms about once per week. Pt told me she had EGD several years ago but I can not locate it. Pt denies any nausea, vomiting PreDM Pt is prediabeti c. Pt doing ok with metformin. Pt does not have any signs of PREDM Pt denies any polyuria, polydipsia or any neuropathy symptoms PHysical Pt needs annual physical. Pt has multiple medical issue. Pt has mild anxiety. Pt takes xanax PRn only. Pt denies any depression. 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 Pt is seeing hematology and she is on coumadin now. Pt is being managed by hematology for the INR. Pt takes ultram for chronic left knee pain. Pt seen ortho and was told to lose weight and do knee replacement. Pt has HLP Pt takes zocor. Pt denies any myalgia, Pt takes metformin for borderline DM. Pt states that her BG is around 100. Pt takes losartan for HTN Pt takes lasix for mild edema. Pt does not take KCL. Pt denies any other complaints Instructions Date Instruction Additional Infor prince Special diet education Related t o Body mass index (BMI) 45.0-49.9, adult Increase physical activity Relat ed to Abnormal weight loss Weight management Related to Abn ormal weight loss Weight management Related to Sci atica, left side Special diet education Related t o Body mass index (BMI) 45.0-49.9, adult Weight management Related to Hyp erlipidemia Increase physical activity Relat ed to Hyperlipidemia Special diet education Related t o Body mass index (BMI) 45.0-49.9, adult Weight management Related to Sancho ous insufficiency Increase physical activity Relat ed to Venous insufficiency Special diet education Related t o Body mass index (BMI) 45.0-49.9, adult Special diet education Related t o Body mass index (BMI) 45.0-49.9, adult Special diet education Related t o Body mass index (BMI) 45.0-49.9, adult Increase activity. Related to Es sential (primary) hypertension Follow a low sodium diet. Relate d to Essential (primary) hypertension Elevate head of bed prior to sle ep. Related to GERD w/ esophagitis Eat smaller meals, n o eating three hours prior to bedtime. Related to GERD w/ esophagitis Avoid provocative fo ods: citrus, alcohol, coffee, chocolate, mints. Related to GERD w/ esophagitis Special diet education Related t o Body mass index (BMI) 45.0-49.9, adult Increase activity. Related to En cntr for general adult medical exam w/o abnormal findings Special diet education Related t o Body mass index (BMI) 45.0-49.9, adult Perform monthly self breast examinations. Related to Encntr for general adult medical exam w/o abnormal findings Assessments Type Assessment Date assessment Hyperlipidemia assessment Metabolic syndrome assessment Essential (primary) hypertension assessment Dermatophytosis of nail assessment Candidiasis of vulva and vagina assessment Chronic gastric ulcer w/o bleedi ng or perforation assessment Polyp of colon assessment Fatty liver Mental Status Date Cognitive Assessment Orientation - [place] ed to time, place, person, situation.
--- NOTE | ~2025-07-08 | XR_ITS ---
EXAMINATION: XR chest 2V 07/08/2025 14:46 INDICATION: Chest pain PROCEDURE: 2 view chest COMPARISON: Comparison to multiple prior studies sequentially, with oldest reviewed study dated 10/06/2017. FINDINGS: The lungs are clear. The cardiomediastinal silhouette is within normal limits. There are no pleural effusions. There is no pneumothorax suspected. There is a calcified granuloma in the retrocardiac region. IMPRESSION: 1: NO ACUTE CARDIOPULMONARY DISEASE. Reviewed, dictated and finalized at location O.
--- OUTSIDE RECORDS SUMMARY | 2025-07-08 14:46 | XMS_ITS | Clinical Summary ---
Author Organization [facility] Address [address] [facility] [place] [address] Care Team Providers Care Shop Clerk Name Role Phone Josh Gonzalez MD Primary Care Provider [phone] Allergies No known active allergies Medications metFORMIN [...] on file Legal Sex Female 12:29 PM POSTAL INSPECTOR Gender Identity Not on file Sexual Orientation Not on file Last Filed Vital Signs Vital Sign Reading Time Taken Comments Blood Pressure 126/84 05/13/2019 2:43 PM CDT Pulse 89 05/13/2019 2:43 PM CDT Temperature 36.9 C (98.4 F) 05/13/2019 2:43 PM CDT Respiratory Rate 18 10/08/2018 12:5 9 PM POSTAL INSPECTOR Oxygen Saturation 98% 05/13/2019 2:43 PM CDT Inhaled Oxygen Concentration - - Weight 124.7 kg (274 lb 14.4 oz) 05/13/2019 2:43 PM CDT Height 162.6 cm (5' 4) 05/13/2019 2:43 PM CDT Body Mass Index [...] 10/24/2018 OSTEOPOROSIS SCREENING 2021 INFLUENZA VACCINE (#1) 2025 09/30/2018 COLORECTAL SCREENING 05/17/2028 05/17/2018 Colorectal Cancer Screening 05/17/2028 RSV VACCINE (60+ or ) (1 - 1-dose 75+ series) 2031 Insurance [place], [place] [id number] [place] [address] MEDICAID Care Teams Shop Clerk Relationship Specialty Start Date End Date Josh Gonzalez MD [address] [place] [phone] PCP - General Family Practice 01/11/19
--- NOTE | 2025-07-08 14:49 | ECG_ITS ---
Test Date: 2025-07-08 14:57:16 Measurements Intervals [place] Rate: 66 P: 60 AK: 181 QRS: 75 QRSD: 96 T: 10 QT: 379 QTc: 400 Interpretive Statements SINUS RHYTHM WITH OCCASIONAL VENTRICULAR PREMATURE COMPLEXES OTHERWISE NORMAL ECG No previous ECG available for comparison Electronically Signed On 07-08-2025 16:10:25 CDT by Ivan Sahni M.D.
== END 2025-07-08 14:30 | disposition home or self-care (01) ==
LOC: ANHIMG 14:36
PROVIDERS: PCP Family Medicine; Visit Provider Family Medicine
DX: R07.9 Chest pain, unspecified (principal)
CPT/HCPCS: 71046; 93005

== ENCOUNTER 2025-07-16 08:27 | Emergency (ER) | payer OTHER, SELFPAY ==
--- OUTSIDE RECORDS SUMMARY | 2021-05-31 04:57 | XMS_ITS | Continuity of Care Document ---
Author Organization [facility] Address [address] [place] [address] [place] [address] Phone Care Team Providers Care Imaging Scheduler Name Role Phone Josh Gonzalez MD Unavailable Unavailable Allergies, Adverse Reactions, Alerts Substance Reaction Status Criticality No Known Allergies Active No Inform ation Medications Medication Instructions Dosage Effective Dates (start - stop) Status Comments Diflucan 150 mg tablet take 1 tablet by oral route once - Active omeprazole 20 mg capsule,delayed release take 1 capsule by oral route every day before a meal 20 MG - Active metformin 500 mg tablet take 1 tablet by oral route every day with morning meals - Active losartan 50 mg tablet take 1 tablet by oral route every day 50 MG - Active Zocor 20 mg tablet take 1 tablet by oral route every day in the evening 20 MG - Active Vitamin D2 1,250 mcg (50,000 [...] Providers Copied on Encounter OFFICE/OUTPA TIENT VISIT, [facility], [address], [place], [id number], tel:[phone] [facility] [place] nail fungus1 (chief complaint) vaginal itching1 (chief complaint) gastric ulcer1 (chief complaint) HLP (chief complaint) HTN (chief complaint) Pre-DM (chief complaint) HyperlipidemiaMetab olic syndromeEssential (primary) hypertensionDermato phytosis of nailCandidiasis of vulva and vaginaChronic gastric ulcer w/o bleeding or perforationPolyp of colonFatty liver 1 Carlos Moreno. [facility] [address] [facility] [place], [address] , [place]. tel:[phone] Referring Provider: [place], [place], [id number]. tel:[phone] OFFICE/OUTPA TIENT VISIT, [facility], [address], [place], [address], [place] tel:[phone] [facility] [place] paresthesi a1 (chief complaint) LFT (chief complaint) D (chief complaint) edema1 (chief complaint) HLP (chief complaint) DM (chief complaint) EdemaMeralgia paresthetica, left lower limbHyperlipidemiaM etabolic syndromeLiver diseaseVitamin D deficiency, unspecified 0 Carlos Moerno. [address], [place], [address] , [place]. tel:[phone] Referring Provider: Crystal Galeano, [place], [place], [id number]. tel:[phone] OFFICE/OUTPA TIENT VISIT, EST [facility] [place], [address], [place], [place], [address], [place] tel:[phone] [facility] [place] edema1 (chief complaint) EdemaVenous insufficiency 0 Carlos Moreno. [address], [place], [place], [address] , [place]. tel:[phone] Referring Provider: Crystal Galeano [address], [place], [place], [address]. tel:[phone] OFFICE/OUTPA TIENT VISIT, [facility], [address], [place], [place], [address], [place] tel:[phone] [facility] [place] gastric1 (chief complaint) LE edema1 (chief complaint) ear (chief complaint) HLP (chief complaint) EdemaMeralgia paresthetica, left lower limbHyperlipidemiaE ssential (primary) hypertensionMetabol ic syndrome 0 Carlos Moreno. [address], [place], [place], [address] , [place]. tel:[phone] Referring Provider: Crystal Galeano [address], [place], [place], [address]. tel:[phone] PREV VISIT, EST, AGE 40-64 [facility] [place], [address], [place], [place], [address], [place] tel:[phone] [facility] [place] Physical (chief complaint) Encntr for general adult medical exam w/o abnormal findings 0 Carlos Moreno. [address], [place], [place], [address] , [place]. tel:[phone] Referring Provider: Josh Gonzalez [address], [place], [place], [address]. tel:[phone] OFFICE/OUTPA TIENT VISIT, [facility], [address], [place], [place], [address], [place] tel:[phone] [facility] [place] mammo (chief complaint) neuropathy 1 (chief complaint) Inconclusive mammogramMeralgia paresthetica, left lower limb Nov-3 0-202 0 Carlos Florentino [address], [place], [place], [address] , [place]. [phone] Referring Provider: Crystal Galeano [address], [place], [place], [address]. tel:[phone] OFFICE/OUTPA TIENT VISIT, [facility], [address], [place], [place], [address], [place] [phone] [facility] [place] mammogram1 (chief complaint) leg pain1 (chief complaint) cough1 (chief complaint) Inconclusive mammogramMeralgia paresthetica, left lower limbAcute upper respiratory infection, unspecifiedPolyp of colonNevus, non-neoplastic Nov-0 2-202 0 Carlos Florentino [address], [place], [place], [address] , [place]. [phone] Referring Provider: Crystal Galeano [address], [place], [place], [address]. tel:[phone] OFFICE/OUTPA TIENT VISIT, [facility], [address], [place], [place], [address], [place] tel:[phone] [facility] [place] leg pain1 (chief complaint) weight loss1 (chief complaint) mole1 (chief complaint) Meralgia paresthetica, left lower limbAbnormal weight lossNevus, non-neoplastic Aug-0 3-201 9 Carlos Florentino [address], [place], [place], [address] , [place]. tel:[phone] Referring Provider: Crystal Galeano [address], [place], [place], [address]. tel:[phone] OFFICE/OUTPA TIENT VISIT, [facility], [address], [place], [place], [address], [place] tel:[phone] [facility] [place] arm pain1 (chief complaint) inner thigh (chief complaint) sinus (chief complaint) Sciatica, left sideAcute sinusitisPain in left upper armBody mass index (BMI) 45.0-49.9, adult 9 Carlos Florentino [address], [place], [place], [address] , [place]. tel:[phone] Referring Provider: Crystal Galeano [address], [place], [place], [address]. tel:[phone] OFFICE/OUTPA TIENT VISIT, [facility], [address], [place], [place], [address], [place] tel:[phone] [facility] [place] arm pain1 (chief complaint) left leg1 (chief complaint) GERD1 (chief complaint) HLP (chief complaint) DM (chief complaint) Pain in left upper armHyperlipidemiaMe tabolic syndromeParesthesia of skinGERD w/ esophagitis 9 Carlos Florentino [address], [place], [place], [address] , [place]. tel:[phone] Referring Provider: Crystal Galeano [address], [place], [place], [address]. tel:[phone] OFFICE/OUTPA TIENT VISIT, [facility], [address], [place], [place], [address], [place] tel:[phone] [facility] [place] leg pain1 (chief complaint) GERD1 (chief complaint) foot swelling1 (chief complaint) rash (chief complaint) Acute gastric ulcer without hemorrhageParesthes ia of skinVenous insufficiencyRash 9 Carlos Florentino [address], [place], [place], [address] , [place]. tel:[phone] Referring Provider: Crystal Galeano [address], [place], [place], [address]. tel:[phone] OFFICE/OUTPA TIENT VISIT, [facility], [address], [place], [place], [address], [place] tel:[phone] [facility] [place] bone density1 (chief complaint) HTN (chief complaint) GERD1 (chief complaint) back pain1 (chief complaint) Body mass index (BMI) 45.0-49.9, adultEssential (primary) hypertensionGERD w/ esophagitisLumbago with sciatica, left sideEncounter for screening for osteoporosis 9 Carlos Moreno. [address], [place], [place], [address] , [place]. [phone] Referring Provider: Crystal Galeano [address], [place], [place], [address]. tel:[phone] OFFICE/OUTPA TIENT VISIT, EST [facility] [place], [address], [place], [place], [address], [place] tel:[phone] [facility] [place] HLP (chief complaint) colon polyp1 (chief complaint) GERD1 (chief complaint) PreDM (chief complaint) GERD w/ esophagitisHyperlip idemiaPolyp of colonMetabolic syndromePulmonary embolism 9 Carlos Moreno. [address], [place], [place], [address] , [place]. tel:[phone] Referring Provider: Crystal Galeano [address] [facility] [address], [place], [place], [address]. tel:[phone] PREV VISIT, NEW, AGE 40-64 [facility] [place], [address], [place], [place], [address], [place] tel:[phone] [facility] [place] PHysical (chief complaint) Encntr for general adult medical exam w/o abnormal findings 9 Carlos Moreno. [address], [place], [place], [address] , [place]. tel:[phone] Family History Family Member Type Diagnosis Age [...] -Podiatric Medicine & Surgery Service Providers : Director Orange (related to Dermatophytosis of nail) ordered Referral Referred To: AMARILIS ARGUELLO [address] [place] [address],[address], [phone] Ordered: Referrals: Gastroenterology. AMARILIS ARGUELLO. Evaluate and treat ordered Referral Referred To: AMARILIS ARGUELLO [address] [place] [address],[address], [phone] Ordered: Referrals: Podiatric Medicine & Surgery Service Providers : Director Orange. AMARILIS ARGUELLO. Evaluate and treat ordered Referral [...] did not realize it until painting removal Pre-DM Pt takes metform in .Pt denies any polyuria polydipsia. Pt has not been checking her glucose at home. HTN Pt takes losarta n and also lasix. Pt has not been taking spironolactone. her bp is ok today Pt denies any chest pain or sob or edema HLP Pt has HLP pt ta kes zocor Pt needs refill. gastric ulcer1 Pt has history o f gastric ulcer on EGD 2018 Pt has not been taking omeprazole and she also never followed up with GI. Pt denies any abd pain. Pt also has tubular adenoma .Pt denies any lower GI issue vaginal itching1 Pt notices vagi nal itching with white discharge for one week. Pt denies any pelvic pain or bleeding. Pt tried OTC meds but not helping . paresthesia1 Pt has left uppe r thigh [...] did help but not so much anymore HLP Pt has HLP Pt ta kes zocor Pt denies any myalgia. ear Pt c/o mild tinn itus and bird chipping in right ear for 4 weeks. Pt denies any hearing loss Pt denies any ear pain or drainage. Pt has mild sinus congestion with sneezing lately. gastric1 Pt has gastric u lcer and tubular adenoma ,pt takes omeprazole and doing ok. Pt denies any abd pain or GI bleeding. LE edema1 Pt c/o bilateral LE and ankle edema since 5 days ago. Pt states that the swelling is better in the morning but gets worse as the days goes ,Pt has been eating a lot of chips and has been staying at home without any activity Pt gained some weight Pt denies any sob. Physical Pt needs annual physical. pt has [...] Patient denies any urinary tract infection symptoms. neuropathy1 Pt c/o left thig h pain and numbness sometimes. Pt doing ok with neurontin mammo Pt has abnormal right screening mammogram. pt denies any breast issue or pain or nodule. Pt just had diagnostic right mammogram and ultrasound done. mammogram1 Pt has abnormal right mammogram Pt [...] PT denies any chest pain or sob mole1 pt has chronic d ark mole right lower lip for 15 years Pt denies any bleeding or itching or burning or change in appearance. Pt told me she was checked by dermatology 6 years ago and was told it is a blue mole, which is benign weight loss1 Pt is intentiona lly losing weight pt cut off sweet and is walking more pt denies any GI issue appetite loss, etc Pt denies any early satiety leg pain1 Pt has chronic l eft [...] Pt does have mild low back pain. inner thigh Pt has chronic l eft [...] has some sensory issue left inner thigh sinus Pt has sinus iss ue for several day with sinus pain, purulent sinus drainage, sore throat and ear pain Pt denies any fever, chill arm pain1 Pt states that l eft upper arm pain resolved. Ultrasound venous ok left leg1 Pt has chronic l eft leg numbness and tingling and some vague pain with ambulation ,Pt had negative DVT study Pt denies any sciatica or any loss of bladder control. Patient denies any weakness. Patient states that the pain discomfort seem to be worse with walking. arm pain1 Pt c/o left arm pain except for left elbow for 2-3 days. Pt denies any injury. pt denies any hand weakness or any numbness or tingling Pt denies any neck pain or left radiculopathy. Pt has dull ache throughout left arm. PT denies any injury DM Patient has rut seay diabetes. Continue metformin. Patient denies any polyuria polydipsia. Patient said her sugars run 100. Patient denies any numbness or tingling in both feet. HLP Patient has hype rlipidemia. Patient takes Zocor. Patient denies any myalgia. Patient needs refill. GERD1 Pt has gastric u lcer PT is on omeprazole by GI, Pt denies any abd pain leg pain1 pt c/o left medi al [...] Pt denies any chest jessy or sob PreDM Pt is prediabeti c. Pt doing ok with metformin. Pt does not have any signs of PREDM Pt denies any polyuria, polydipsia or any neuropathy symptoms GERD1 Pt had CT which showed esophagitis. Pt does have GERD and she takes Rolaids once per week. pt has GERD symptoms about once per week. Pt told me she had EGD several years ago but I can not locate it. Pt denies any nausea, vomiting colon polyp1 Pt has tubular a denoma on colonoscopy 2016. Pt was recommend to repeat in 2019. Pt denies any lower GI issue HLP Pt has HLP P kelsi es zocor Pt denies and myalgia. pt takes any myalgia PHysical Pt needs annual physical. Pt has [...] diet. Relate d to Essential (primary) hypertension Special diet education Related t o Body mass index (BMI) 45.0-49.9, adult Elevate head of bed prior to sle ep. Related to GERD w/ esophagitis Eat smaller meals, n o eating three hours prior to bedtime. Related to GERD w/ esophagitis Avoid provocative fo ods: citrus, alcohol, coffee, chocolate, mints. Related to GERD w/ esophagitis Increase activity. Related to En cntr for general adult medical exam w/o abnormal findings Perform monthly self breast examinations. Related to Encntr for general adult medical exam w/o abnormal findings Special diet education Related t o Body mass index (BMI) 45.0-49.9, adult Assessments Type Assessment Date assessment Hyperlipidemia assessment Metabolic syndrome assessment Essential (primary) hypertension assessment Dermatophytosis of nail assessment Candidiasis of vulva and vagina assessment Chronic gastric ulcer w/o bleedi ng or perforation assessment Polyp of colon assessment Fatty liver Mental Status Date Cognitive Assessment Orientation - [place] ed to time, place, person, situation.
--- OUTSIDE RECORDS SUMMARY | 2021-05-31 04:57 | XMS_ITS | Continuity of Care Document ---
Author Organization [facility] Address [address] [address] [place] [address] Phone Care Team Providers Care Technology Resource Teacher Name Role Phone Josh Gonzalez MD Unavailable [...] route every day 50 MG - Active metformin 500 mg tablet take 1 tablet by oral route every day with morning meals - Active omeprazole 20 mg capsule,delayed release take 1 capsule by oral route every day before a meal 20 MG - Active Diflucan 150 mg tablet take 1 tablet by oral route once - Active Vitamin D2 1,250 mcg (50,000 [...] Providers Copied on Encounter OFFICE/OUTPA TIENT VISIT, [facility], [address], [place], [id number], tel:[phone] [facility] nail fungus1 (chief complaint) vaginal itching1 (chief complaint) gastric ulcer1 (chief complaint) HLP (chief complaint) HTN (chief complaint) Pre-DM (chief complaint) HyperlipidemiaMetab olic syndromeEssential (primary) hypertensionDermato phytosis of nailCandidiasis of vulva and vaginaChronic gastric ulcer w/o bleeding or perforationPolyp of colonFatty liver 1 Carlos Moreno. [facility] [address] [facility] [place], [address] , [place]. tel:[phone] Referring Provider: [place], [id number]. tel:[phone] OFFICE/OUTPA TIENT VISIT, [facility], [address] [place], [address], [place] tel:[phone] [facility] paresthesi a1 (chief complaint) LFT (chief complaint) D (chief complaint) edema1 (chief complaint) HLP (chief complaint) DM (chief complaint) EdemaMeralgia paresthetica, left lower limbHyperlipidemiaM etabolic syndromeLiver diseaseVitamin D deficiency, unspecified 0 Carlos oMreno. [address] [place] [place], [address] , [place]. tel:[phone] Referring Provider: Crystal Galeano, [place], [place], [address]. tel:[phone] OFFICE/OUTPA TIENT VISIT, EST [facility], [address], [place], [place], [address], [place] tel:[phone] [facility] edema1 (chief complaint) EdemaVenous insufficiency 0 Carlos Moreno. [address], [place], [place], [address] , [place]. tel:[phone] Referring Provider: Crystal Galeano [address], [place], [place], [address]. tel:[phone] OFFICE/OUTPA TIENT VISIT, [facility], [address], [place], [place], [address], [place] tel:[phone] [facility] gastric1 (chief complaint) LE edema1 (chief complaint) ear (chief complaint) HLP (chief complaint) EdemaMeralgia paresthetica, left lower limbHyperlipidemiaE ssential (primary) hypertensionMetabol ic syndrome 0 Carlos Moreno. [address], [place], [place], [address] , [place]. tel:[phone] Referring Provider: Crystal Galeano [address], [place], [place], [address]. tel:[phone] PREV VISIT, EST, AGE 40-64 [facility], [address], [place], [place], [address], [place] tel:[phone] [facility] Physical (chief complaint) Encntr for general adult medical exam w/o abnormal findings 0 Carlos Moreno. [address], [place], [place], [address] , [place]. tel:[phone] Referring Provider: Josh Gonzalez [address], [place], [place], [address]. tel:[phone] OFFICE/OUTPA TIENT VISIT, [facility], [address], [place], [place], [address], [place] tel:[phone] [facility] mammo (chief complaint) neuropathy 1 (chief complaint) Inconclusive mammogramMeralgia paresthetica, left lower limb Nov-3 0-202 0 Carlos Florentino [address], [place], [place], [address] , [place]. [phone] Referring Provider: Crystal Galeano [address], [place], [place], [address]. tel:[phone] OFFICE/OUTPA TIENT VISIT, [facility], [address], [place], [place], [address], [place] [phone] [facility] mammogram1 (chief complaint) leg pain1 (chief complaint) cough1 (chief complaint) Inconclusive mammogramMeralgia paresthetica, left lower limbAcute upper respiratory infection, unspecifiedPolyp of colonNevus, non-neoplastic Nov-0 2-202 0 Carlos Florentino [address], [place], [place], [address] , [place]. tel: [phone] Referring Provider: Crystal Galeano [address], [place], [place], [address]. tel:[phone] OFFICE/OUTPA TIENT VISIT, [facility], [address], [place], [place], [address], [place] tel:[phone] [facility] leg pain1 (chief complaint) weight loss1 (chief complaint) mole1 (chief complaint) Meralgia paresthetica, left lower limbAbnormal weight lossNevus, non-neoplastic Aug-0 3-201 9 Carlos Florentino [address], [place], [place], [address] , [place]. tel:[phone] Referring Provider: Crystal Galeano [address], [place], [place], [address]. tel:[phone] OFFICE/OUTPA TIENT VISIT, [facility], [address], [place], [place], [address], [place] tel:[phone] [facility] arm pain1 (chief complaint) inner thigh (chief complaint) sinus (chief complaint) Sciatica, left sideAcute sinusitisPain in left upper armBody mass index (BMI) 45.0-49.9, adult 9 Carlos Florentino [address], [place], [place], [address] , [place]. tel:[phone] Referring Provider: Crystal Galeano [address], [place], [place], [address]. tel:[phone] OFFICE/OUTPA TIENT VISIT, [facility], [address], [place], [place], [address], [place] tel:[phone] [facility] arm pain1 (chief complaint) left leg1 (chief complaint) GERD1 (chief complaint) HLP (chief complaint) DM (chief complaint) Pain in left upper armHyperlipidemiaMe tabolic syndromeParesthesia of skinGERD w/ esophagitis 9 Carlos Florentino [address], [place], [place], [address] , [place]. tel:[phone] Referring Provider: Crystal Galeano [address], [place], [place], [address]. tel:[phone] OFFICE/OUTPA TIENT VISIT, [facility], [address], [place], [place], [address], [place] tel:[phone] [facility] leg pain1 (chief complaint) GERD1 (chief complaint) foot swelling1 (chief complaint) rash (chief complaint) Acute gastric ulcer without hemorrhageParesthes ia of skinVenous insufficiencyRash 9 Carlos Florentino [address], [place], [place], [address] , [place]. tel:[phone] Referring Provider: Crystal Galeano [address], [place], [place], [address]. tel:[phone] OFFICE/OUTPA TIENT VISIT, [facility], [address], [place], [place], [address], [place] tel:[phone] [facility] bone density1 (chief complaint) HTN (chief complaint) GERD1 (chief complaint) back pain1 (chief complaint) Body mass index (BMI) 45.0-49.9, adultEssential (primary) hypertensionGERD w/ esophagitisLumbago with sciatica, left sideEncounter for screening for osteoporosis 9 Carlos Moreno. [address], [place], [place], [address] , [place]. [phone] Referring Provider: Crystal Galeano [address], [place], [place], [address]. tel:[phone] OFFICE/OUTPA TIENT VISIT, EST [facility], [address], [place], [place], [address], [place] tel:[phone] [facility] HLP (chief complaint) colon polyp1 (chief complaint) GERD1 (chief complaint) PreDM (chief complaint) GERD w/ esophagitisHyperlip idemiaPolyp of colonMetabolic syndromePulmonary embolism 9 Carlos Moreno. [address], [place], [place], [address] , [place]. tel:[phone] Referring Provider: Crystal Galeano [address] [facility] [address], [place], [place], [address]. tel:[phone] PREV VISIT, NEW, AGE 40-64 [facility], [address], [place], [place], [address], [place] tel:[phone] [facility] PHysical (chief complaint) Encntr for general adult medical exam w/o abnormal findings 9 Carlos Moreno. [address], [place], [place], [address] , [place]. tel:[phone] Family History Family Member Type Diagnosis Age At Onset Father Problem (finding) liver cirrhsosis (Cause Of ) 74 Mother Problem (finding) breast CA Sister Problem (finding) Stroke 30 Payers Payer name Insurance type Covered constitution party ID Authoriza tion(s) No Information Social History [...] education compl eted Referral Ordered: AMARILIS ARGUELLO -Podiatric Medicine & Surgery Service Providers : Dude Wrangler (related to Dermatophytosis of nail) ordered Referral Ordered: AMARILIS ARGUELLO -Gastroenterology (related to Chronic gastric ulcer w/o bleeding or perforation) ordered Referral Referred To: AMARILIS ARGUELLO [address] [place] [address],[address], [id number] Ordered: Referrals: Gastroenterology. AMARILIS ARGUELLO. Evaluate and treat ordered Referral Referred To: AMARILIS ARGUELLO [address] [place] [address],[address], [phone] Ordered: Referrals: Podiatric Medicine & Surgery Service Providers : Dude Wrangler. AMARILIS ARGUELLO. Evaluate and treat ordered Referral [...] adult Increase physical activity Relat ed to Hyperlipidemia Weight management Related to Hyp erlipidemia Special diet education Related t o Body mass index (BMI) 45.0-49.9, adult Increase physical activity Relat ed to Venous insufficiency Weight management Related to Sancho ous insufficiency Special diet education Related t o Body mass index (BMI) 45.0-49.9, adult Special diet education Related t o Body mass index (BMI) 45.0-49.9, adult Increase activity. Related to Es sential (primary) hypertension Follow a low sodium diet. Relate d to Essential (primary) hypertension Special diet education Related t o Body mass index (BMI) 45.0-49.9, adult Avoid provocative fo ods: citrus, alcohol, coffee, chocolate, mints. Related to GERD w/ esophagitis Eat smaller meals, n o eating three hours prior to bedtime. Related to GERD w/ esophagitis Elevate head of bed prior to sle ep. Related to GERD w/ esophagitis Increase activity. [...] Mental Status Date Cognitive Assessment Orientation - [place] ed to time, place, person, situation.
[2025-07-16] VITALS (20 sets, daily range): BP systolic 139–148; BP diastolic 66–91; PULSE 71–82; RESP 10–19; O2SAT 90–100
--- NOTE | ~2025-07-16 | XR_ITS ---
EXAMINATION: XR chest 2V, 07/16/2025 9:05 CDT HISTORY: chest pain GENERALIZED WORSE TODAY COMPARISON: No comparisons available. Technique: 2 views obtained. Findings: The lungs are clear, no effusion. No pneumothorax. Heart is normal size. Mediastinal and hilar contours are within normal limits. Bony thorax no acute abnormality. Impression: No acute cardiopulmonary abnormality. Reviewed, dictated and finalized at location A. Impression: No acute cardiopulmonary abnormality.
--- NOTE | ~2025-07-16 | CT_ITS ---
CTA CHEST CLINICAL HISTORY: chest pain . COMPARISON: Chest x-ray same day CTA chest 09/28/2018 TECHNIQUE: Helical CTA performed from thoracic inlet to upper abdomen IV contrast information not listed in PACS Coronal, sagittal reformats. Multiplanar MIPS CT images acquired with automatic exposure control for dose reduction DLP: 850 mGy-cm FINDINGS: Respiratory motion artifact may obscure a distal PE or simulate PE. Pulmonary arteries: No PE identified. Thoracic Aorta: No dissection or aneurysm. Heart/pericardium: Unremarkable. RV/LV ratio: Normal. Lungs/Pleura: Clear. Tracheobronchial tree: Patent. Nodes: No enlarged nodes. Small calcifications left hilum. Bones: No acute bony abnormality. Soft tissues: Unremarkable. Visualized upper abdomen: Unremarkable. IMPRESSION: 1. No PE identified nor other acute cardiopulmonary findings. Reviewed, dictated and finalized at location R.
--- NOTE | 2025-07-16 08:33 | ECG_ITS ---
Test Date: 2025-07-16 08:34:58 Measurements Intervals [place] Rate: 77 P: 28 AL: 175 QRS: -20 QRSD: 86 T: 72 QT: 362 QTc: 411 Interpretive Statements SINUS RHYTHM WITH FREQUENT VENTRICULAR PREMATURE COMPLEXES OCCURRING IN A PATTERN OF TRIGEMINY POSSIBLE RIGHT VENTRICULAR CONDUCTION DELAY [RSR (QR) IN V1/V2] SEPTAL MYOCARDIAL INFARCTION , PROBABLY OLD [40+ ms Q WAVE IN V1/V2] ABNORMAL ECG Compared to ECG 07/08/2025 14:57:16 PVCS ARE MORE FREQUENT Electronically Signed On 07-16-2025 16:16:57 CDT by Ivan Sahni M.D.
[2025-07-16 08:52] LABS: Hematocrit 41.7 % (37.0-47.0); Hemoglobin 13.5 g/dL (12.0-15.0); Immature Granulocyte Percent A 0.4 % (0-0.5); Lymphocytes Absolute Auto 2.55 K/mm3 (0.9-3.2); Mean Corpuscular HGB Conc 32.4 g/dl (32-36); Mean Corpuscular Hemoglobin 28.8 pg (26-34); Mean Corpuscular Volume 89.1 fl (80-100); Nucleated Red Blood Cells Absolute Auto 0.000 K/mm3 (0.0-0.012); Nucleated Red Blood Cells Perc 0.0 % (0.0-0.2); Platelet Count Result 237 k/mm3 (150-375); Red Blood Count 4.68 M/mm3 (4.2-5.4); White Blood Count 9.3 K/mm3 (4.5-10.0)
--- OUTSIDE RECORDS SUMMARY | 2025-07-16 08:53 | XMS_ITS | Clinical Summary ---
Author Organization [facility] Address [address] [place] [address] Care Team Providers Care Software Sales Consultant Name Role Phone Josh Gonzalez MD Primary Care Provider [phone] Allergies No known active allergies Medications metFORMIN [...] on file Legal Sex Female 12:29 PM STORE OPERATIONS SPECIALIST Gender Identity Not on file Sexual Orientation Not on file Last Filed Vital Signs Vital Sign Reading Time Taken Comments Blood Pressure 126/84 05/13/2019 2:43 PM CDT Pulse 89 05/13/2019 2:43 PM CDT Temperature 36.9 C (98.4 F) 05/13/2019 2:43 PM CDT Respiratory Rate 18 10/08/2018 12:5 9 PM STORE OPERATIONS SPECIALIST Oxygen Saturation 98% 05/13/2019 2:43 PM CDT [...] (1 - 1-dose 75+ series) 2031 Insurance [place], [place] [id number] [place] [address] MEDICAID Care Teams Software Sales Consultant Relationship Specialty Start Date End Date Josh Gonzalez MD [address] [place] [phone] PCP - General Family Practice 01/11/19
[2025-07-16 09:04] LABS: INR 0.9; Prothrombin Time 11.8 Seconds (11.1-14.7)
[2025-07-16 09:05] LABS: Alanine Aminotransferase 33 U/L (6-35); Albumin Level 4.0 g/dL (3.5-5.1); Alkaline Phosphatase 155 U/L (38-126); Anion Gap 6 mmol/L (4-12); Aspartate Amino Transferase 39 U/L (14-36); Bilirubin,Total 0.4 mg/dL (0.2-1.3); Blood Urea Nitrogen 19 mg/dL (7-17); Calcium 9.3 mg/dL (8.4-10.2); Carbon Dioxide 29 mmol/L (22-30); Chloride 101 mmol/L (98-107); Estimated CRCL calculation 68 ml/min; Estimated Glomerular Filt Rate > 60; Glucose 92 mg/dL (65-110); Lipase 153 U/L (23-300); Partial Thromboplastin Time 26.1 Seconds (22.3-36.8); Potassium 3.9 mmol/L (3.4-5.0); Sodium 136 mmol/L (137-145); Total Protein 7.1 g/dL (6.3-8.2)
[2025-07-16] MEDS: ASPIRIN 81 MG CHEWABLE TABLET 324 MG PO (09:06)
[2025-07-16 09:16] LABS: Troponin I < 0.012 ng/mL (0.000-0.034)
--- NOTE | 2025-07-16 10:00 | ED_ITS ---
HPI - General Adult General Chief complaint: Chest Pain Stated complaint: CHEST PAIN Time Seen by Provider: 07/16/25 08:37 History of Present Illness HPI narrative: 69-year-old female presents to the emergency department for evaluation for intermittent chest pain that she states has been ongoing for many months. Patient did have a stress test last year that she states was for the same chest pain, cardiac workup was negative at that time. Patient states he did have follow-up with her primary care physician and they were going to order outpatient imaging and order to rule out a pulmonary embolism. Patient does have a history of a clot in her lungs many years ago, patient is unsure of how this developed. Patient is not on any current blood thinners. patient states at approximately 730 this morning she started developing chest pain and headache and all symptoms were resolved by 9. Patient denies any radiation of the chest pain to her neck back or arm denies any diaphoresis associated with this. At time of evaluation patient denies any chest pain chest tightness headache or shortness of breath. Patient is well-appearing at time of evaluation. Related Data Home Medications ?Medication ?Instructions ?Recorded ?Confirmed ?Last Taken ?Type garlic 100 mg tablet 100 mg PO DAILY 07/06/2112/3107/13/21 History mineral oil 15 ml PO DAILY PRN 07/08/25 07/08/25 Unknown History Allergies Allergy/AdvReac Type Severity Reaction Status Date / Time bee pollen Allergy Mild Anaphylaxis Verified 07/16/25 08:28 adhesive Allergy Unknown Unknown Verified 07/16/25 08:28 venom-wasp Allergy Unknown Swelling Verified 07/16/25 08:28 lisinopril Allergy Cough Verified 07/16/25 08:28 nylon Allergy Irritable Verified 07/16/25 08:28 Kvpgqlh-ZWS-FaC Reductase AdvReac Intermediate muscle Verified 07/16/25 08:28 Inhibitor aches Review of Systems 2 Review of Systems: All systems reviewed & are unremarkable except as noted in HPI and below PMFSH Past Medical History Medical History Body mass index (BMI) of 40.1 to 44.9 in adult Incisional hernia Tinnitus Postmenopausal Anxiety Adverse effect of cmjlwevsnai-shimcdotws-xeaehq inhibitors, initial encounter PE (pulmonary thromboembolism) Thrombophlebitis of superficial veins of left lower extremity Acid reflux Hyperlipemia, mixed Diabetes Hypertension Surgical History Surgical History History of rectal surgery 2010 Hx of cholecystectomy 2009 H/O vein stripping 1969's; 2017 Family History Family History Sibling Family history of gastrointestinal disorder Father Family history of liver disease, Onset Age: 75 Social History Social History Smoking packs per day: 1 Smoking cigarettes per day: 20.0 Years smoked: 30 Smoking pack-years: 30.00 Smoking status: Former smoker Tobacco type: cigarettes Smoking end date: 11/06/06 Alcohol intake: never Substance use: never Substance use type: does not use Do You Feel Safe in your Home?: Yes Lack of Transportation: No Lack of Food: Never True Current Housing: I Have Housing Concerned About Future Housing: No Difficulty Paying Gas/Electric Bills: No Difficulty Paying for Meds: No Currently Unemployed: No Education: High School Diploma/GED Difficulty w/ Childcare or Family Care: No Living arrangements: with family Occupation/Education: unemployed Gender identity (if verbalized by the patient): Female Spiritual care concerns: No Agree to blood products: Yes Exam 2 Narrative: APPEARANCE: Well appearing, no pain, no distress, well-nourished. HEAD: normocephalic, atraumatic. EYES: PERRLA/EOMI, conjunctivae clear. NOSE: Normal no drainage EARS:TMS clear with good light reflex. THROAT: Pharynx clear, no exudate. NECK: Supple. No adenopathy, no masses. RESPIRATORY: Airway patent, respirations nonlabored. Clear to auscultation bilaterally, no rales, rhonchi, wheezing. CARDIOVASCULAR: Regular rate and rhythm without murmurs rubs or gallops. ABDOMINAL: Soft, nontender, nondistended, normal bowel sounds MUSCULOSKELETAL: Moves all extremities. Strength/ROM intact, No edema, No calf tenderness. NEURO: Alert. Cranial nerves II through XII intact. Good gait. Good coordination SKIN: Warm, dry. Normal Color Course Vital Signs Vital signs: Vital Signs Pulse Rate 80 07/16/25 08:33 Respiratory Rate 12 07/16/25 08:33 Blood Pressure 146/91 H 07/16/25 08:33 Pulse Oximetry 100 09/10/25 08:33 Oxygen Delivery Room Air 07/16/25 08:33 Pulse Rate 77 07/16/25 12:30 Respiratory Rate 15 07/16/25 12:30 Blood Pressure 139/66 07/16/25 09:01 Pulse Oximetry 100 07/16/25 12:30 Oxygen Delivery Room Air 07/16/25 09:01 Medical Decision Making MDM Narrative Medical decision making narrative: 69-year-old female presents to the emergency department for evaluation for chest pain that is now resolved. Patient denies any complaints at this time. Patient is currently afebrile with no leukocytosis hemoglobin 13.5. Patient is INR 0.9. No acute abnormalities on her CMP. patient had negative serial troponins. Low concern for ACS. Patient was negative for influenza RSV and for COVID. Chest x-ray showed no acute cardiopulmonary abnormality. CTA was ordered to evaluate for pulmonary embolism this was also negative for PE. Patient was updated the results of her workup. Patient was encouraged of close follow-up with her primary care physician. All questions concerns were addressed. Differential Diagnosis Differential Diagnosis: ACS, pleurisy, pneumonia, pulmonary embolism Vital Signs Vital Signs: Vital Signs Pulse Rate 80 07/16/25 08:33 Respiratory Rate 12 07/16/25 08:33 Blood Pressure 146/91 H 07/16/25 08:33 Pulse Oximetry 100 07/16/25 08:33 Oxygen Delivery Room Air 07/16/25 08:33 Pulse Rate 77 07/16/25 12:30 Respiratory Rate 15 07/16/25 12:30 Blood Pressure 139/66 07/16/25 09:01 Pulse Oximetry 100 07/16/25 12:30 Oxygen Delivery Room Air 07/16/25 09:01 Lab Data Lab results reviewed: Yes I reviewed the patient's lab results. 07/16/25 08:46 07/16/25 08:46 Labs: Lab Results 07/16/25 07/16/25 Range/Units 08:46 12:28 WBC 9.3 (4.5-10.0) K/mm3 RBC 4.68 (4.2-5.4) M/mm3 Hgb 13.5 (12.0-15.0) g/dL Hct 41.7 (37.0-47.0) % MCV 89.1 (80-100) fl MCH 28.8 (26-34) pg MCHC 32.4 (32-36) g/dl RDW 14.2 (11.5-14.5) % Plt Count 237 (150-375) k/mm3 MPV 9.4 (7.4-10.4) fl Immature Gran % (Auto) 0.4 (0-0.5) % Neut % (Auto) 61.2 (45.5-73.1) % Lymph % (Auto) 27.5 (18.3-44.2) % Baldwin % (Auto) 8.0 (2.6-8.5) % Eos % (Auto) 2.4 (0-4.4) % Baso % (Auto) 0.5 (0.2-1.2) % Lymph # (Auto) 2.55 (0.9-3.2) K/mm3 Baldwin # (Auto) 0.7 H (0.1-0.6) K/mm3 Eos # (Auto) 0.2 (0-0.3) K/mm3 Baso # (Auto) 0.1 (0.0-0.1) K/mm3 Abs Immat Gran (auto) 0.04 H (0.00-0.031) K/mm3 Absolute Neuts (auto) 5.7 (1.3-6.7) K/mm3 Absolute Nucleated RBC 0.000 (0.0-0.012) K/mm3 Nucleated RBC % 0.0 (0.0-0.2) % PT 11.8 (11.1-14.7) Seconds INR 0.9 APTT 26.1 (22.3-36.8) Seconds Sodium 136 L (137-145) mmol/L Potassium 3.9 (3.4-5.0) mmol/L Chloride 101 (98-107) mmol/L Carbon Dioxide 29 (22-30) mmol/L Anion Gap 6 (4-12) mmol/L BUN 19 H (7-17) mg/dL Creatinine 0.77 (0.7-1.0) mg/dL Estim Creat Clear Calc 68 ml/min Estimated GFR > 60 (59 - ) Glucose 92 (65-110) mg/dL Calcium 9.3 (8.4-10.2) mg/dL Total Bilirubin 0.4 (0.2-1.3) mg/dL AST 39 H (14-36) U/L ALT 33 (6-35) U/L Alkaline Phosphatase 155 H (38-126) U/L Troponin I < 0.012 < 0.012 (0.000-0.034) ng/mL Total Protein 7.1 (6.3-8.2) g/dL Albumin 4.0 (3.5-5.1) g/dL Lipase 153 (23-300) U/L Influenza A (RT-PCR) Negative (Negative) Influenza B (RT-PCR) Negative (Negative) RSV (RT-PCR) Negative (Negative) SARS-CoV-2 RNA (RT-PCR) Negative (Negative) Imaging Data Radiologist's impression: Impressions Chest X-Ray 07/16/25 09:19 Impression: No acute cardiopulmonary abnormality. Chest CTA 07/16/25 10:42 IMPRESSION: 1. No PE identified nor other acute cardiopulmonary findings. ECG Data EKG #1: EKG Interpretation: normal rate, sinus rhythm, PVCs, non-specific ST changes, normal QRS and NL axis Discharge Plan Discharge Clinical Impression: Chest pain Patient Disposition: Home Condition: Stable Instructions: Antibiotic Form, Chest Pain (ED) Additional Instructions: your CT was negative for pulmonary embolism. Continue have close follow-up with your primary care physician for additional outpatient cardiac testing. If you have any worsening symptoms then please call or return to the emergency department. Patient Language: Norwegian Prescriptions: No Action mineral oil Oil 15 ml PO DAILY PRN garlic 100 mg Tablet 100 mg PO DAILY (DME) True Metrix Glucose Test Strip Strip See Rx Instructions .Route Qty: 100 1RF Rx Instructions: 3 times a day (DME) blood-glucose meter [True Metrix Air Glucose Meter] Misc See Rx Instructions .Route Qty: 1 0RF Rx Instructions: 3 times a day RELION/TRUE MICRO LANC 33G MIS See Rx Instructions .ROUTE .COMPLEX Qty: 200 0RF Dose Instruction: USE TO CHECK GLUCOSE THREE TIMES DAILY Rx Instructions: USE TO CHECK GLUCOSE THREE TIMES DAILY Ozempic 2 mg/dose (8 mg/3 mL) pen injector See Rx Instructions .ROUTE .COMPLEX Qty: 3 1RF Dose Instruction: INJECT 2 MG SUBCUTANEOUSLY ONCE A WEEK Rx Instructions: INJECT 2 MG SUBCUTANEOUSLY ONCE A WEEK Follow-up/Referrals: Anthony Yoder MD [Primary Care Provider, [facility]] Quality HEART score for chest pain patients History: slightly suspicious ECG: normal Age: > or = to 65 years Risk factors: 1 or 2 risk factors Troponin: < or = to 1x normal limit Heart score: 3
--- NOTE | 2025-07-16 12:04 | ECG_ITS ---
Test Date: 2025-07-16 12:22:20 Measurements Intervals [place] Rate: 75 P: 21 UT: 170 QRS: -25 QRSD: 84 T: 81 QT: 378 QTc: 424 Interpretive Statements SINUS RHYTHM WITH FREQUENT VENTRICULAR PREMATURE COMPLEXES OCCURRING IN A PATTERN OF TRIGEMINY POSSIBLE RIGHT VENTRICULAR CONDUCTION DELAY [RSR (QR) IN V1/V2] SEPTAL MYOCARDIAL INFARCTION , PROBABLY OLD [40+ ms Q WAVE IN V1/V2] ABNORMAL ECG Compared to ECG 07/16/2025 08:34:58 No significant changes Electronically Signed On 07-16-2025 16:24:53 CDT by Ivan Sahni M.D.
[2025-07-16 12:58] LABS: Troponin I < 0.012 ng/mL (0.000-0.034)
[2025-07-16 13:11] LABS: Influenza A QL RT-PCR Negative (Negative); Influenza B QL RT-PCR Negative (Negative); RSV RNA, RT-PCR Negative (Negative); SARS-CoV-2 RNA PCR Negative (Negative)
== END 2025-07-16 13:58 | disposition home or self-care (01) ==
PROVIDERS: Emergency Provider Emergency Medicine; PCP Family Medicine
DX: R07.9 Chest pain, unspecified (principal); Z20.822 Contact with and (suspected) exposure to COVID-19; I10 Essential (primary) hypertension; E78.5 Hyperlipidemia, unspecified; E11.9 Type 2 diabetes mellitus without complications; K21.9 Gastro-esophageal reflux disease without esophagitis; F41.9 Anxiety disorder, unspecified; Z87.891 Personal history of nicotine dependence; Z86.711 Personal history of pulmonary embolism; Z90.49 Acquired absence of other specified parts of digestive tract; Z79.85 Long-term (current) use of injectable non-insulin antidiabetic drugs; R00.8 Other abnormalities of heart beat; R94.31 Abnormal electrocardiogram [ECG] [EKG]
CPT/HCPCS: 36415; 71046; 71275; 80053; 83690; 84484; 85025; 85610; 85730; 87637; 93005; 99284; A9270; Q9967

== ENCOUNTER 2025-09-03 09:39 | Outpatient (CLI) | payer OTHER, SELFPAY ==
--- OUTSIDE RECORDS SUMMARY | 2025-09-03 10:38 | XMS_ITS | Clinical Summary ---
Author Organization [facility] Address [address] [place] [address] Care Team Providers Care Managed Services Sales Consultant Name Role Phone Josh Gonzalez MD Primary Care Provider [phone] Allergies No known active allergies Medications metFORMIN [...] on file Legal Sex Female 12:29 PM SEED CLE[employer] Gender Identity Not on file Sexual Orientation Not on file Last Filed Vital Signs Vital Sign Reading Time Taken Comments Blood Pressure 126/84 05/13/2019 2:43 PM CDT Pulse 89 05/13/2019 2:43 PM CDT Temperature 36.9 C (98.4 F) 05/13/2019 2:43 PM CDT Respiratory Rate 18 10/08/2018 12:5 9 PM SEED CLEANER Oxygen Saturation 98% 05/13/2019 2:43 PM CDT [...] (1 - 1-dose 75+ series) [address] [place], [place] [id number] [place] [address] MEDICAID Care Teams Managed Services Sales Consultant Relationship Specialty Start Date End Date Josh Gonzalez MD [address] [place] [id number] PCP - General Family Practice 01/11/19
--- NOTE | 2025-09-03 11:15 | NEURO_ITS ---
Impression: # Complains of numbness of legs. ? # Mild asymmetrical axonal neuropathy. ? # Needle/EMG exam with decrement of motor unit potentials but no neurogenic changes. ? # Clinical correlation recommended. Nerve Conduction Studies ?Stim Site NR Peak (ms) P-T Amp (?V) Site1 Site2 Delta-P (ms) Dist (cm) [place] (m/s) Left Sup Fibular Anti Sensory (Ant Lat Mall) 14 cm ? 3.6 2.7 14 cm Ant Lat Mall 3.6 16.0 44 Right Sup Fibular Anti Sensory (Ant Lat Mall) 14 cm ? 3.4 5.5 14 cm Ant Lat Mall 3.4 16.0 47 Left Sural Anti Sensory (Lat Mall) Calf ? 3.4 11.6 Calf Lat Mall 3.4 16.0 47 Right Sural Anti Sensory (Lat Mall) Calf ? 3.9 5.4 Calf Lat Mall 3.9 16.0 41 ?Stim Site NR Onset (ms) O-P Amp (mV) Site1 Site2 Delta-0 (ms) Dist (cm) [place] (m/s) Left Peroneal Motor (Vastus Med) Ankle ? 3.9 2.7 Popit Ankle 8.1 39.0 48 Popit ? 12.0 2.3 Right Peroneal Motor (Vastus Med) Ankle ? 4.0 2.7 Popit Ankle 8.1 39.0 48 Popit ? 12.1 2.0 Left Tibial Motor (Abd Acevedo Brev) Ankle ? 4.1 8.8 Knee Ankle 8.7 40.0 46 Knee ? 12.8 3.8 Right Tibial Motor (Abd Acevedo Brev) Ankle ? 4.1 3.0 Knee Ankle 9.5 40.0 42 Knee ? 13.6 2.1 F Wave Studies ?NR F-Lat (ms) L-R F-Lat (ms) Left Peroneal (Mrkrs) (EDB) ? 53.34 0.05 Right Peroneal (Mrkrs) (EDB) ? 53.28 0.05 Left Tibial (Mrkrs) (Abd Hallucis) ? 53.36 0.22 Right Tibial (Mrkrs) (Abd Hallucis) ? 53.14 0.22 Electromyography ?Side Muscle Nerve Root Ins Act Fibs Amp Dur Recrt Comment Right AntTibialis Dp Br Fibular L4-5 Nml Nml Nml Nml Nml Right Gastroc Tibial S1-2 Nml Nml Nml Nml Nml Right Fibularis Long Sup Br Fibular L5-S1 Nml Nml Nml Nml Nml Right Flex Dig Long Tibial L5-S2 Nml Nml Nml Nml Nml Right Ext Dig Brev Dp Br Fibular L5, S1 Nml Nml Nml Nml Nml Right QuadratusFem QuadFemoris L4-5, S1 Nml Nml Nml Nml Nml Left AntTibialis Dp Br Fibular L4-5 Nml Nml Nml Nml Nml Left Gastroc Tibial S1-2 Nml Nml Nml Nml Nml Left Fibularis Long Sup Br Fibular L5-S1 Nml Nml Nml Nml Nml Left Flex Dig Long Tibial L5-S2 Nml Nml Nml Nml Nml Left Ext Dig Brev Dp Br Fibular L5, S1 Nml Nml Nml Nml Nml Left QuadratusFem QuadFemoris L4-5, S1 Nml Nml Nml Nml Nml
== END 2025-09-03 09:40 | disposition home or self-care (01) ==
LOC: ANHNEURO 09:42
PROVIDERS: PCP Family Medicine; Visit Provider Family Medicine
DX: R20.0 Anesthesia of skin (principal)
CPT/HCPCS: 95886; 95910